=== PATIENT | female | born 1950 | race Caucasian/White ===

== ENCOUNTER 2018-09-07 12:46 | Emergency (ER) | payer MEDICARE ==
[~2018-09-07] VITALS: Ht 172.7 cm; Wt 123.4 kg
[~2018-09-07 12:46] MED LIST: ASCO-262 PO; ASCO1TAB17 PO; BIOT1TAB2 PO; CA C1TAB66 PO; CALC-654 PO; CALC-787 PO; CEPH-507 PO; CHOL10003 PO; CNC1KV IJ; GLUC1CAP37 PO; LEVO50TA6 PO; LVT.1T PO; MELO-195 PO; MULT-608 PO; NFBIOT1000 PO; OMEP20TA2 PO; OXYC-471 PO; PANT40TA2 PO; PED1TAB. PO; POTA99TA18 PO; POTA99TA21 PO; POTA99TA7 PO; PRX20T PO; RABE20TA PO; SUCR1TAB36 PO; VENL75CA PO; VITA400C58 PO; VNL75T PO; glucosamine PO
--- OUTSIDE RECORDS SUMMARY | 2018-09-07 12:52 | XMS REPORT | CCD ---
Author Author OSMAR MIRANDA TRACYAlyx Organization Unknown Address [address] [facility] [address] [place], [place] [id number] Care Team Providers Care Staffing Administrator Name Role Phone AMANDA CAUSEY, TANVIR Wisdom Attphys C., DENIZ NASST S., SILAS NASST C., ZAK SAMUEL NASST G., JUANY NASST K., EMILY Chen NASST D., EMMIE Garner NASST Vital Signs Vital Sign Value Unit Date/Time Recent/Initial? Weight Measured 277 lbs 05/12/2015 09:23 Initial VS Height 68 in 05/12/2015 09:23 Initial VS BMI (Body Mass Index) 42.12 kg/m^2 05/12/2015 09:23 Initial VS BSA (Body Surface Area) 2.46 m^2 05/12/2015 09:23 Initial VS Respiratory Rate 10 bpm 05/13/2015 09:57 Initial VS Heart Rate 60 bpm 05/13/2015 09:57 Initial VS O2 % BldC Oximetry 100 % 05/13/2015 09:57 Initial VS BP Systolic 128 mmHg 05/13/2015 10:06 Initial VS BP Diastolic 69 mmHg 05/13/2015 10:06 Initial VS Body Temperature 96.5 degrees 05/13/2015 13:35 Initial VS BP Systolic 103 mmHg 05/15/2015 07:31 Most Recent VS BP Diastolic 64 mmHg 05/15/2015 07:31 Most Recent VS Respiratory Rate 16 bpm 05/15/2015 07:31 Most Recent VS Heart Rate 67 bpm 05/15/2015 07:31 Most Recent VS O2 % BldC Oximetry 97 % 05/15/2015 07:31 Most Recent VS Body Temperature 98.5 degrees 05/15/2015 07:31 Most Recent VS Allergies Allergy Code Allergy Type Reaction Status STRAWBERRY FLAVORING {Clinical monitoring unavailable} 0 Food allergy Active PREMARIN [id number] Drug allergy Active NSAID 0 Drug allergy Active Procedures Procedure Code Procedure Type Date Supplement Abdominal Wall with Synthetic Substitute, Open Approach [id number] ICD-10 PCS 05/13/2015 CBC W/ AUTO DIFF (RFLX MAN DIFF IF IND) 3674885 SNOMED CT 05/15/2015 COMPREHENSIVE METABOLIC PANEL 197907649 SNOMED CT 05/15/2015 COMPREHENSIVE METABOLIC PANEL 988542148 SNOMED CT 05/14/2015 CBC W/ AUTO DIFF (RFLX MAN DIFF IF IND) 3584722 SNOMED CT 05/14/2015 INCENTIVE SPIROMETRY EA [address] 05/13/2015 ^CBC W/AUTO DIFF 5422568 SNOMED CT 05/15/2015 ^CBC W/AUTO DIFF 6098503 SNOMED CT 05/14/2015 History of Immunizations Immunization Code Date Hep B, adolescent or pediatric 08 03/14/1994 Hep B, adolescent or pediatric 04/13/1994 Hep B, adolescent or pediatric 09/14/1994 influenza, split (incl. purified surface antigen) 15 12/25/2002 influenza, split (incl. purified surface antigen) 15 03/30/2004 Novel [id number] 127 01/19/2009 Influenza, seasonal, injectable 141 12/24/2014 Influenza, seasonal, injectable 141 12/20/2010 influenza, seasonal, intradermal, preservative free 144 01/02/2012 influenza, injectable, quadrivalent, preservative free 150 01/05/2014 Problems Problem Code Start Date Resolved Date Status Post-op complication 576591881 Active Hematoma of skin 085175257 Active Ventral incisional hernia 861018194 05/23/2015 Resolved Post op pain 032974089 05/23/2015 Resolved Results COMPREHENSIVE METABOLIC PANEL - Collect Date/Time: 05/15/2015 06:15 Test Name Code Test Result Test Units Test Ref Range GLUCOSE 2345-7 105 MG/DL L=70 H=100 SODIUM 2951-2 144 MEQ/L L=135 H=148 POTASSIUM 2823-3 3.4 MEQ/L L=3.5 H=5.3 CHLORIDE 2075-0 108 MEQ/L L=96 H=110 CO2 2028-9 27 MEQ/L L=22 H=29 BUN 3094-0 9 MG/DL L=8 H=22 CREATININE 2160-0 0.6 MG/DL L=0.6 H=1.6 SGOT/AST 1920-8 115 IU/L L=10 H=40 SGPT/ALT 1742-6 78 IU/L L=8 H=54 ALK PHOS 6768-6 207 IU/L L=35 H=115 TOTAL PROTEIN 2885-2 5.8 G/DL L=5.5 H=8.5 ALBUMIN 1751-7 3.2 G/DL L=3.1 H=5.4 TOTAL BILI 1975-2 0.3 MG/DL L=0.0 H=1.5 CALCIUM 67064-0 8.7 MG/DL L=8.2 H=10.6 AGE 65 yrs GFR NonAA 100 GFR AA 121 eGFR >60 N/A eGFR AA* >60 N/A COMPREHENSIVE METABOLIC PANEL - Collect Date/Time: 05/14/2015 06:40 Test Name Code Test Result Test Units Test Ref Range GLUCOSE 2345-7 102 MG/DL L=70 H=100 SODIUM 2951-2 140 MEQ/L L=135 H=148 POTASSIUM 2823-3 4.1 MEQ/L L=3.5 H=5.3 CHLORIDE 2075-0 107 MEQ/L L=96 H=110 CO2 2028-9 25 MEQ/L L=22 H=29 BUN 3094-0 11 MG/DL L=8 H=22 CREATININE 2160-0 0.7 MG/DL L=0.6 H=1.6 SGOT/AST 1920-8 206 IU/L L=10 H=40 SGPT/ALT 1742-6 131 IU/L L=8 H=54 ALK PHOS 6768-6 214 IU/L L=35 H=115 TOTAL PROTEIN 2885-2 5.7 G/DL L=5.5 H=8.5 ALBUMIN 1751-7 3.2 G/DL L=3.1 H=5.4 TOTAL BILI 1975-2 0.2 MG/DL L=0.0 H=1.5 CALCIUM 07751-2 8.7 MG/DL L=8.2 H=10.6 AGE 65 yrs GFR NonAA 84 GFR AA 102 eGFR >60 N/A eGFR AA* >60 N/A CBC W/ AUTO DIFF (RFLX MAN DIFF IF IND) - Collect Date/Time: 05/15/2015 06:15 Test Name Code Test Result Test Units Test Ref Range WBC 60357-9 6.6 TH/CMM L=4.5 H=10.8 RBC 789-8 3.34 ML/CMM L=4.20 H=5.40 HGB 718-7 10.6 G/DL L=12.0 H=16.0 HCT 4544-3 34.5 % L=37.0 H=47.0 MCV 103 FL L=81 H=99 MCH 31.7 PG L=27.0 H=33.0 MCHC 30.7 G/DL L=31.0 H=36.0 RDW SD 49 FL L=36 H=50 RDW CV 13.0 % L=0.0 H=14.8 MPV 10.2 FL L=9.3 H=12.5 PLT 777-3 214 TH/CMM L=130 H=440 NRBC# 0.00 TH/CMM L=0.00 H=0.00 NRBC% 0.0 /100WBC L=0.0 H=2.0 %NEUT 65.1 % %LYMP 23.1 % %MONO 8.3 % %EOS 2.9 % %BASO 0.6 % #NEUT 4.30 TH/CMM L=2.10 H=8.20 #LYMP 1.53 TH/CMM L=0.90 H=5.20 #MONO 0.55 TH/CMM L=0.16 H=1.00 #EOS 0.19 TH/CMM L=0.00 H=0.80 #BASO 0.04 TH/CMM L=0.00 H=0.20 MANUAL DIFF NOT IND N/A CBC W/ AUTO DIFF (RFLX MAN DIFF IF IND) - Collect Date/Time: 05/14/2015 06:40 Test Name Code Test Result Test Units Test Ref Range WBC 62738-5 7.9 TH/CMM L=4.5 H=10.8 RBC 789-8 3.44 ML/CMM L=4.20 H=5.40 HGB 718-7 11.0 G/DL L=12.0 H=16.0 HCT 4544-3 35.1 % L=37.0 H=47.0 MCV 102 FL L=81 H=99 MCH 32.0 PG L=27.0 H=33.0 MCHC 31.3 G/DL L=31.0 H=36.0 RDW SD 47 FL L=36 H=50 RDW CV 12.7 % L=0.0 H=14.8 MPV 9.6 FL L=9.3 H=12.5 PLT 777-3 216 TH/CMM L=130 H=440 NRBC# 0.00 TH/CMM L=0.00 H=0.00 NRBC% 0.0 /100WBC L=0.0 H=2.0 %NEUT 74.3 % %LYMP 15.8 % %MONO 9.8 % %EOS 0.0 % %BASO 0.1 % #NEUT 5.88 TH/CMM L=2.10 H=8.20 #LYMP 1.25 TH/CMM L=0.90 H=5.20 #MONO 0.78 TH/CMM L=0.16 H=1.00 #EOS 0.00 TH/CMM L=0.00 H=0.80 #BASO 0.01 TH/CMM L=0.00 H=0.20 MANUAL DIFF NOT IND N/A Active Medications Medication Code Dose Units Frequency Route Modification Start Date/Time Carafate 1GM/10ML Oral Suspension 670965 1 EACH FOUR TIMES A DAY ORAL 05/26/2015 09:42 Prescription Detail 1 EACH ORAL FOUR TIMES A DAY oxyCODONE HCl-acetaminophen 5MG-325MG Oral Tablet 8009193 1 TABLET NEEDED EVERY 4 HR BY MOUTH 05/26/2015 09:42 Prescription Detail 1 TABLET BY MOUTH NEEDED EVERY 4 HR Pantoprazole Sodium 40MG Oral Tablet, Enteric Coated 660422 40 MILLIGRAMS TWO TIMES A DAY ORAL 05/26/2015 09:42 Prescription Detail 40 MILLIGRAMS ORAL TWO TIMES A DAY Effexor 75MG Oral Tablet 48628611024 75 MILLIGRAMS DAILY ORAL 05/15/2015 10:32 Prescription Detail 75 MILLIGRAMS ORAL DAILY Levothroid Sodium 50MCG Oral Tablet 80307234143 50 MCG DAILY ORAL 05/15/2015 10:32 Prescription Detail 50 MCG ORAL DAILY Medications Administered During Visit Medication Dose Units Frequency Route Date/Time of Last Dose LEVOTHYROXINE (SYNTHROID)50 MCG 50 MCG DAILY PO 05/15/2015 06:18 VENLAFAXINE [EFFEXOR] XR CAP : 75MG 75 MG DAILY PO 05/15/2015 08:17 PANTOPRAZOLE [PROTONIX] INJ VIAL: 40 MG 40 MG DAILY SIVP 05/15/2015 08:17 METOCLOPRAMIDE [REGLAN] TABLET: 10MG 10 MG ACHS PO 05/15/2015 06:18 PERCOCET 5/325 MG TABLET (ROXICET) 1 TAB PRN Q 4 HRS PO 05/15/2015 07:42 CEFAZOLIN [ANCEF] IV 2GM (PREDEFINED) Q8H IVPB 05/14/2015 07:58 NS 1000 ML IV [PREDEFINED] (7983) CONT IV IV 05/14/2015 07:58 OFIRMEV [ACETAMINOPHEN] 10MG/ML 100ML VL Q6H IV 05/14/2015 05:12 Encounters Encounter Diagnosis Diagnosis Code Start Date Incisional hernia with obstruction, without gangrene K430 05/13/2015 Social History Smoking Status Code Start Date End Date Unknown if ever smoked [id number] Patient Decision Aids Patient Decision Aid HERNIA REPAIR; AFTER THE PROCEDURE Incisional Hernia Discharge Instructions You were admitted to [facility] on 05/13/2015 09:14 with a principal diagnosis of Incisional hernia with obstruction, without gangrene You had the following procedures done: Supplement Abdominal Wall with Synthetic Substitute, Open Approach You had the following tests done: CBC W/ AUTO DIFF (RFLX MAN DIFF IF IND) CBC W/ AUTO DIFF (RFLX MAN DIFF IF IND) COMPREHENSIVE METABOLIC PANEL COMPREHENSIVE METABOLIC PANEL You were discharged from [facility] on 05/15/2015 11:05 Should you have any questions prior to discharge, please contact a member of your healthcare team. If you have left the hospital and have any questions, please contact your primary care physician. HOME DIET: As tolerated. CONDITION AT DISMISSAL Stable. HOME MEDICATION INSTRUCTIONS: Verbalizes understanding of instructions. HOME MEDS RETURNED TO PATIENT: N/A. ACTIVITY INSTRUCTIONS(list limitations): No lifting greater than 15lbs No driving for 7 days RETURN TO WORK/SCHOOL: Only after you see your doctor. SCRIPTS WRITTEN BY DOCTOR GIVEN TO PATIENT? Keflex and Percocet PAIN MANAGEMENT: "Pain Management at Home" instruct given, Medication, Side effects. Treatment of constipation, Non drug control methods. Managing ineffective control, When to contact physician. Verbalizes understanding of instructions. FOLLOW UP CARE - SEE YOUR PHYSICIAN: Follow up with Dr. Ayala in 10 days. Call on Sunday for an appointment. SPECIAL INSTRUCTIONS: Measure drainage from drain daily, if less than 20ml per day call Dr. Ayala's office PRIMARY CARE PHYSICIAN OR PRACTITIONER: Tanvir Ayala MD, . CONTACT PHYSICIAN IF YOU EXPERIENCE ANY: Increased in pain, increased in drainage from JEAN CLAUDE drain, Shortness of breath. PERSONAL ITEMS RETURNED: Yes. INSTRUCTIONS GIVEN AND DISCHARGE TO: Patient, Spouse/SO. VOICES UNDERSTANDING OF INSTRUCTIONS: Yes. INSTRUCTIONS GIVEN BY (TYPE IN NAME AND DATE) Nancy Benavides 05/15/15 CHIEF COMPLAINT: C/O RIGHT/MIDLINE HERNIA FOR STARTING APPROX 3 WEEKS AGO GETTING LARGER Chief Complaint and Reason For Visit Chief Complaint Date of Onset REPAIR OF VENTRAL HERNIA Function Status Unknown or Not Available. Plan of Care Unknown or Not Available. Referral/Transition of Care Unknown or Not Available.
--- OUTSIDE RECORDS SUMMARY | 2018-09-07 12:52 | XMS REPORT | CCD ---
Author Author OSVALDO CONLEY Unknown Address [address] [facility] [address] [place] [address] Care Team Providers Care Storage Garage Attendant Name Role Phone LANCE CAUSEY, TAYO Smithphys Allergies Allergy Code Allergy Type Reaction Status STRAWBERRIES 0 Food allergy Active IVP DYE {Clinical monitoring unavailable} 0 Drug allergy Active SHELLFISH 0 Food allergy Active Active Medications Medication Code Dose Units Frequency Route Modification Start Date/Time Carafate 1GM/10ML Oral Suspension 216538 1 EACH FOUR TIMES A DAY ORAL 05/26/2015 09:42 Prescription Detail 1 EACH ORAL FOUR TIMES A DAY oxyCODONE HCl-acetaminophen 5MG-325MG Oral Tablet 0240621 1 TABLET NEEDED EVERY 4 HR BY MOUTH 05/26/2015 09:42 Prescription Detail 1 TABLET BY MOUTH NEEDED EVERY 4 HR Pantoprazole Sodium 40MG Oral Tablet, Enteric Coated 284228 40 MILLIGRAMS TWO TIMES A DAY ORAL 05/26/2015 09:42 Prescription Detail 40 MILLIGRAMS ORAL TWO TIMES A DAY Effexor 75MG Oral Tablet 452785 75 MILLIGRAMS DAILY ORAL 05/15/2015 10:32 Prescription Detail 75 MILLIGRAMS ORAL DAILY Levothroid Sodium 50MCG Oral Tablet 864030 50 MCG DAILY ORAL 05/15/2015 10:32 Prescription Detail 50 MCG ORAL DAILY Problems Problem Code Start Date Resolved Date Status Post-op complication 635171478 Active Hematoma of skin 924730648 Active Procedures Procedure Code Procedure Type Date ^CBC W/AUTO DIFF 3353237 SNOMED CT 10/17/2016 SED RATE 220425896 SNOMED CT 10/17/2016 COMPREHENSIVE METABOLIC PANEL 530780926 SNOMED CT 10/17/2016 CBC W/ AUTO DIFF (RFLX MAN DIFF IF IND) 8986887 SNOMED CT 10/17/2016 Results COMPREHENSIVE METABOLIC PANEL - Collect Date/Time: 10/17/2016 19:39 Test Name Code Test Result Test Units Test Ref Range GLUCOSE 2345-7 117 MG/DL L=70 H=100 SODIUM 2951-2 141 MEQ/L L=135 H=148 POTASSIUM 2823-3 3.7 MEQ/L L=3.5 H=5.3 CHLORIDE 2075-0 109 MEQ/L L=96 H=110 CO2 2028-9 22 MEQ/L L=22 H=29 BUN 3094-0 14 MG/DL L=8 H=22 CREATININE 2160-0 0.7 MG/DL L=0.6 H=1.6 SGOT/AST 1920-8 18 IU/L L=10 H=40 SGPT/ALT 1742-6 12 IU/L L=8 H=54 ALK PHOS 6768-6 128 IU/L L=35 H=115 TOTAL PROTEIN 2885-2 7.3 G/DL L=5.5 H=8.5 ALBUMIN 1751-7 3.8 G/DL L=3.1 H=5.4 TOTAL BILI 1975-2 0.2 MG/DL L=0.0 H=1.5 CALCIUM 82266-2 9.3 MG/DL L=8.2 H=10.6 AGE 66 yrs GFR NonAA 84 GFR AA 102 eGFR >60 N/A eGFR AA* >60 N/A CBC W/ AUTO DIFF (RFLX MAN DIFF IF IND) - Collect Date/Time: 10/17/2016 19:39 Test Name Code Test Result Test Units Test Ref Range WBC 55884-6 7.5 TH/CMM L=4.5 H=10.8 RBC 789-8 4.02 ML/CMM L=4.20 H=5.40 HGB 718-7 12.9 G/DL L=12.0 H=16.0 HCT 4544-3 40.2 % L=37.0 H=47.0 MCV 100 FL L=81 H=99 MCH 32.1 PG L=27.0 H=33.0 MCHC 32.1 G/DL L=31.0 H=36.0 RDW SD 46 FL L=36 H=50 RDW CV 12.5 % L=0.0 H=14.8 MPV 10.0 FL L=9.3 H=12.5 PLT 777-3 249 TH/CMM L=130 H=440 NRBC# 0.00 TH/CMM L=0.00 H=0.00 NRBC% 0.0 /100WBC L=0.0 H=2.0 %NEUT 66.0 % %LYMP 22.0 % %MONO 7.0 % %EOS 3.9 % %BASO 0.8 % #NEUT 4.94 TH/CMM L=2.10 H=8.20 #LYMP 1.64 TH/CMM L=0.90 H=5.20 #MONO 0.52 TH/CMM L=0.16 H=1.00 #EOS 0.29 TH/CMM L=0.00 H=0.80 #BASO 0.06 TH/CMM L=0.00 H=0.20 MANUAL DIFF NOT IND N/A SED RATE - Collect Date/Time: 10/17/2016 19:39 Test Name Code Test Result Test Units Test Ref Range SEDRATE 4537-7 41 MM/HR L=0 H=30 TICK PANEL - Collect Date/Time: 10/17/2016 19:39 Test Name Code Test Result Test Units Test Ref Range Lyme IgG/IgM Ab 08971-6 <0.91 ISR 0.00-0.90 Lyme Disease Ab, Quant,IgM 5064-1 <0.80 index 0.00-0.79 [facility] Spotted Fever,IgM 09350-6 0.55 index 0.00- 0.89 RMSF, IgG, EIA 84683-5 Negative N/A Negative E. chaffeensis ([facility]) IgGTiter 16891-4 Negative N/A Neg:<1:64 E. chaffeensis ([facility]) IgMTiter 86110-6 Negative N/A Neg:<1:20 Function Status Unknown or Not Available. History of Immunizations Immunization Code Date Hep B, adolescent or pediatric 03/14/1994 Hep B, adolescent or pediatric 04/13/1994 Hep B, adolescent or pediatric 09/14/1994 influenza, split (incl. purified surface antigen) 15 12/25/2002 influenza, split (incl. purified surface antigen) 15 03/30/2004 Novel [id number]-[id number] 127 01/19/2009 Influenza, seasonal, injectable 141 12/24/2014 Influenza, seasonal, injectable 141 12/20/2010 Influenza, seasonal, injectable 141 01/02/2012 influenza, seasonal, intradermal, preservative free 144 01/02/2012 influenza, injectable, quadrivalent, preservative free 150 01/05/2014 influenza, injectable, quadrivalent, preservative free 150 02/08/2015 influenza, injectable, quadrivalent 158 12/20/2010 Plan of Treatment Unknown or Not Available. Social History Smoking Status Code Start Date End Date Never smoker 362974316 Vital Signs Unknown or Not Available. Function Status Unknown or Not Available. Goals Unknown or Not Available. ASSESSMENTS Unknown or Not Available. Health Concerns Section Unknown or Not Available.
--- OUTSIDE RECORDS SUMMARY | 2018-09-07 12:52 | XMS REPORT | CCD ---
Author Author JOSESITO THOMPSON Unknown Address [address] [facility] [address] [place], [place] [id number] Care Team Providers Care Police Booking Officer Name Role Phone AMANDA CAUSEY, TANVIR Wisdom Attphys J., JOSESITO NASST D., MARVIN Armenta NASST C., DENIZ NASST S., ELKIN GALVEZ NASST B., JIN NASST M., LIZZY Chen NASST S., DENIZ NASST G., KILEY [place] NASST P., RUKHSANA NASST F., LEILANI NASST Vital Signs Vital Sign Value Unit Date/Time Recent/Initial? Weight Measured 294.06 lbs 05/22/2015 18:20 Initial VS Height 68 in 05/22/2015 18:20 Initial VS BMI (Body Mass Index) 44.71 kg/m^2 05/22/2015 18:20 Initial VS BSA (Body Surface Area) 2.53 m^2 05/22/2015 18:20 Initial VS BP Systolic 149 mmHg 05/22/2015 18:20 Initial VS BP Diastolic 88 mmHg 05/22/2015 18:20 Initial VS Respiratory Rate 20 bpm 05/22/2015 18:20 Initial VS Heart Rate 74 bpm 05/22/2015 18:20 Initial VS O2 % BldC Oximetry 100 % 05/22/2015 18:20 Initial VS Body Temperature 98.1 degrees 05/22/2015 18:20 Initial VS Weight Measured 294.37 lbs 05/22/2015 18:39 Most Recent VS Height 68 in 05/22/2015 18:39 Most Recent VS BMI (Body Mass Index) 44.76 kg/m^2 05/22/2015 18:39 Most Recent VS BSA (Body Surface Area) 2.53 m^2 05/22/2015 18:39 Most Recent VS BP Systolic 118 mmHg 05/26/2015 07:20 Most Recent VS BP Diastolic 67 mmHg 05/26/2015 07:20 Most Recent VS Respiratory Rate 18 bpm 05/26/2015 07:20 Most Recent VS Heart Rate 79 bpm 05/26/2015 07:20 Most Recent VS O2 % BldC Oximetry 96 % 05/26/2015 07:20 Most Recent VS Body Temperature 98.2 degrees 05/26/2015 07:20 Most Recent VS Allergies Allergy Code Allergy Type Reaction Status STRAWBERRY FLAVORING {Clinical monitoring unavailable} 0 Food allergy Active PREMARIN [id number] Drug allergy Active NSAID 0 Drug allergy Active SHELLFISH 0 Food allergy Active Procedures Procedure Code Procedure Type Date Extirpation of Matter from Abdomen Subcutaneous Tissue and Fascia, Open Ap [id number] ICD-10 PCS 05/25/2015 ^CBC W/AUTO DIFF 1314216 SNOMED CT 05/26/2015 HIV AG/AB COMBO [id number] SNOMED CT 05/25/2015 HEPATITIS PANEL + HBsAb 33874480 SNOMED CT 05/25/2015 CBC W/ AUTO DIFF (RFLX MAN DIFF IF IND) 7092728 SNOMED CT 05/26/2015 CT ABD AND PELVIS W/CONTRAST 728445444 SNOMED CT 05/24/2015 COMPREHENSIVE METABOLIC PANEL [id number] SNOMED CT 05/24/2015 CBC W/ AUTO DIFF (RFLX MAN DIFF IF IND) 4754884 SNOMED CT 05/24/2015 CBC W/ AUTO DIFF (RFLX MAN DIFF IF IND) 4558491 SNOMED CT 05/22/2015 COMPREHENSIVE METABOLIC PANEL [id number] SNOMED CT 05/23/2015 CBC W/ AUTO DIFF (RFLX MAN DIFF IF IND) 8170444 SNOMED CT 05/23/2015 ^CBC W/ MANUAL DIFF 07221266 SNOMED CT 05/24/2015 ^CBC W/AUTO DIFF 6533317 SNOMED CT 05/23/2015 ^CBC W/AUTO DIFF 9007299 SNOMED CT 05/22/2015 LOCM 300-349 MG/ML, PER ML 698688148 SNOMED CT 05/24/2015 History of Immunizations Immunization Code Date Hep B, adolescent or pediatric 03/14/1994 Hep B, adolescent or pediatric 08 04/13/1994 Hep B, adolescent or pediatric 08 09/14/1994 influenza, split (incl. purified surface antigen) 15 12/25/2002 influenza, split (incl. purified surface antigen) 15 03/30/2004 Novel [id number] 127 01/19/2009 Influenza, seasonal, injectable 141 12/24/2014 Influenza, seasonal, injectable 141 12/20/2010 influenza, seasonal, intradermal, preservative free 144 01/02/2012 influenza, injectable, quadrivalent, preservative free 150 01/05/2014 Problems Problem Code Start Date Resolved Date Status Post-op complication [id number] Active Hematoma of skin 816554162 Active Ventral incisional hernia 541005896 05/23/2015 Resolved Post op pain 759508398 05/23/2015 Resolved Results COMPREHENSIVE METABOLIC PANEL - Collect Date/Time: 05/24/2015 06:20 Test Name Code Test Result Test Units Test Ref Range GLUCOSE 2345-7 153 MG/DL L=70 H=100 SODIUM 2951-2 143 MEQ/L L=135 H=148 POTASSIUM 2823-3 3.9 MEQ/L L=3.5 H=5.3 CHLORIDE 2075-0 107 MEQ/L L=96 H=110 CO2 2028-9 27 MEQ/L L=22 H=29 BUN 3094-0 7 MG/DL L=8 H=22 CREATININE 2160-0 0.6 MG/DL L=0.6 H=1.6 SGOT/AST 1920-8 20 IU/L L=10 H=40 SGPT/ALT 1742-6 20 IU/L L=8 H=54 ALK PHOS 6768-6 179 IU/L L=35 H=115 TOTAL PROTEIN 2885-2 6.1 G/DL L=5.5 H=8.5 ALBUMIN 1751-7 3.1 G/DL L=3.1 H=5.4 TOTAL BILI 1975-2 0.4 MG/DL L=0.0 H=1.5 CALCIUM 26041-3 9.2 MG/DL L=8.2 H=10.6 AGE 65 yrs GFR NonAA 100 GFR AA 121 eGFR >60 N/A eGFR AA* >60 N/A COMPREHENSIVE METABOLIC PANEL - Collect Date/Time: 05/23/2015 06:00 Test Name Code Test Result Test Units Test Ref Range GLUCOSE 2345-7 97 MG/DL L=70 H=100 SODIUM 2951-2 143 MEQ/L L=135 H=148 POTASSIUM 2823-3 3.7 MEQ/L L=3.5 H=5.3 CHLORIDE 2075-0 108 MEQ/L L=96 H=110 CO2 2028-9 27 MEQ/L L=22 H=29 BUN 3094-0 5 MG/DL L=8 H=22 CREATININE 2160-0 0.6 MG/DL L=0.6 H=1.6 SGOT/AST 1920-8 26 IU/L L=10 H=40 SGPT/ALT 1742-6 22 IU/L L=8 H=54 ALK PHOS 6768-6 153 IU/L L=35 H=115 TOTAL PROTEIN 2885-2 5.2 G/DL L=5.5 H=8.5 ALBUMIN 1751-7 2.7 G/DL L=3.1 H=5.4 TOTAL BILI 1975-2 0.5 MG/DL L=0.0 H=1.5 CALCIUM 52736-6 8.6 MG/DL L=8.2 H=10.6 AGE 65 yrs GFR NonAA 100 GFR AA 121 eGFR >60 N/A eGFR AA* >60 N/A CBC W/ AUTO DIFF (RFLX MAN DIFF IF IND) - Collect Date/Time: 05/26/2015 06:18 Test Name Code Test Result Test Units Test Ref Range WBC 63105-4 8.1 TH/CMM L=4.5 H=10.8 RBC 789-8 2.87 ML/CMM L=4.20 H=5.40 HGB 718-7 8.9 G/DL L=12.0 H=16.0 HCT 4544-3 28.1 % L=37.0 H=47.0 MCV 98 FL L=81 H=99 MCH 31.0 PG L=27.0 H=33.0 MCHC 31.7 G/DL L=31.0 H=36.0 RDW SD 55 FL L=36 H=50 RDW CV 15.6 % L=0.0 H=14.8 MPV 9.3 FL L=9.3 H=12.5 PLT 777-3 318 TH/CMM L=130 H=440 NRBC# 0.00 TH/CMM L=0.00 H=0.00 NRBC% 0.0 /100WBC L=0.0 H=2.0 %NEUT 68.1 % %LYMP 19.2 % %MONO 8.9 % %EOS 3.6 % %BASO 0.2 % #NEUT 5.53 TH/CMM L=2.10 H=8.20 #LYMP 1.56 TH/CMM L=0.90 H=5.20 #MONO 0.72 TH/CMM L=0.16 H=1.00 #EOS 0.29 TH/CMM L=0.00 H=0.80 #BASO 0.02 TH/CMM L=0.00 H=0.20 MANUAL DIFF NOT IND N/A CBC W/ AUTO DIFF (RFLX MAN DIFF IF IND) - Collect Date/Time: 05/24/2015 06:20 Test Name Code Test Result Test Units Test Ref Range WBC 14302-3 7.4 TH/CMM L=4.5 H=10.8 RBC 789-8 3.14 ML/CMM L=4.20 H=5.40 HGB 718-7 9.7 G/DL L=12.0 H=16.0 HCT 4544-3 30.2 % L=37.0 H=47.0 MCV 96 FL L=81 H=99 MCH 30.9 PG L=27.0 H=33.0 MCHC 32.1 G/DL L=31.0 H=36.0 RDW SD 55 FL L=36 H=50 RDW CV 16.1 % L=0.0 H=14.8 MPV 9.6 FL L=9.3 H=12.5 PLT 777-3 331 TH/CMM L=130 H=440 NRBC# 0.00 TH/CMM L=0.00 H=0.00 NRBC% 0.0 /100WBC L=0.0 H=2.0 %NEUT 91.5 % %LYMP 6.7 % %MONO 1.7 % %EOS 0.0 % %BASO 0.1 % #NEUT 6.80 TH/CMM L=2.10 H=8.20 #LYMP 0.50 TH/CMM L=0.90 H=5.20 #MONO 0.13 TH/CMM L=0.16 H=1.00 #EOS 0.00 TH/CMM L=0.00 H=0.80 #BASO 0.01 TH/CMM L=0.00 H=0.20 SEGS 86 % BANDS 7 % LYMPHS 6 % MONOS 1 % MANUAL DIFF SEE BELOW N/A CBC W/ AUTO DIFF (RFLX MAN DIFF IF IND) - Collect Date/Time: 05/23/2015 06:00 Test Name Code Test Result Test Units Test Ref Range WBC 66012-0 5.8 TH/CMM L=4.5 H=10.8 RBC 789-8 2.82 ML/CMM L=4.20 H=5.40 HGB 718-7 8.8 G/DL L=12.0 H=16.0 HCT 4544-3 27.0 % L=37.0 H=47.0 MCV 96 FL L=81 H=99 MCH 31.2 PG L=27.0 H=33.0 MCHC 32.6 G/DL L=31.0 H=36.0 RDW SD 58 FL L=36 H=50 RDW CV 16.8 % L=0.0 H=14.8 MPV 9.6 FL L=9.3 H=12.5 PLT 777-3 247 TH/CMM L=130 H=440 NRBC# 0.00 TH/CMM L=0.00 H=0.00 NRBC% 0.0 /100WBC L=0.0 H=2.0 %NEUT 62.9 % %LYMP 20.9 % %MONO 11.1 % %EOS 4.8 % %BASO 0.3 % #NEUT 3.66 TH/CMM L=2.10 H=8.20 #LYMP 1.22 TH/CMM L=0.90 H=5.20 #MONO 0.65 TH/CMM L=0.16 H=1.00 #EOS 0.28 TH/CMM L=0.00 H=0.80 #BASO 0.02 TH/CMM L=0.00 H=0.20 MANUAL DIFF NOT IND N/A CBC W/ AUTO DIFF (RFLX MAN DIFF IF IND) - Collect Date/Time: 05/22/2015 22:10 Test Name Code Test Result Test Units Test Ref Range WBC 55295-0 7.3 TH/CMM L=4.5 H=10.8 RBC 789-8 2.84 ML/CMM L=4.20 H=5.40 HGB 718-7 8.7 G/DL L=12.0 H=16.0 HCT 4544-3 27.3 % L=37.0 H=47.0 MCV 96 FL L=81 H=99 MCH 30.6 PG L=27.0 H=33.0 MCHC 31.9 G/DL L=31.0 H=36.0 RDW SD 58 FL L=36 H=50 RDW CV 16.7 % L=0.0 H=14.8 MPV 9.5 FL L=9.3 H=12.5 PLT 777-3 242 TH/CMM L=130 H=440 NRBC# 0.00 TH/CMM L=0.00 H=0.00 NRBC% 0.0 /100WBC L=0.0 H=2.0 %NEUT 65.3 % %LYMP 18.8 % %MONO 11.5 % %EOS 4.0 % %BASO 0.4 % #NEUT 4.75 TH/CMM L=2.10 H=8.20 #LYMP 1.37 TH/CMM L=0.90 H=5.20 #MONO 0.84 TH/CMM L=0.16 H=1.00 #EOS 0.29 TH/CMM L=0.00 H=0.80 #BASO 0.03 TH/CMM L=0.00 H=0.20 MANUAL DIFF NOT IND N/A HEPATITIS PANEL + HBsAb - Collect Date/Time: 05/25/2015 13:18 Test Name Code Test Result Test Units [place] [address]-6 <0.1 0.0-0.9 Hep A Ab, IgM 12733-2 Negative N/A Negative HBsAg Screen 5196-1 Negative N/A Negative Hep B Core Ab, IgM 46868-5 Negative N/A Negative Hep B Surface Ab, Qual 22670-5 Reactive N/A HIV AG/AB COMBO - Collect Date/Time: 05/25/2015 13:18 Test Name Code Test Result Test Units Test Ref Range HIV AG/AB COMBO 15328-3 0.12 N/A NL: < or=1.0 S/CO Active Medications Medication Code Dose Units Frequency Route Modification Start Date/Time Carafate 1GM/10ML Oral Suspension 607346 1 EACH FOUR TIMES A DAY ORAL 05/26/2015 09:42 Prescription Detail 1 EACH ORAL FOUR TIMES A DAY oxyCODONE HCl-acetaminophen 5MG-325MG Oral Tablet 5842607 1 TABLET NEEDED EVERY 4 HR BY MOUTH 05/26/2015 09:42 Prescription Detail 1 TABLET BY MOUTH NEEDED EVERY 4 HR Pantoprazole Sodium 40MG Oral Tablet, Enteric Coated 897589 40 MILLIGRAMS TWO TIMES A DAY ORAL 05/26/2015 09:42 Prescription Detail 40 MILLIGRAMS ORAL TWO TIMES A DAY Effexor 75MG Oral Tablet 14991492236 75 MILLIGRAMS DAILY ORAL 05/15/2015 10:32 Prescription Detail 75 MILLIGRAMS ORAL DAILY Levothroid Sodium 50MCG Oral Tablet 01482014055 50 MCG DAILY ORAL 05/15/2015 10:32 Prescription Detail 50 MCG ORAL DAILY Medications Administered During Visit Medication Dose Units Frequency Route Date/Time of Last Dose VENLAFAXINE [EFFEXOR] XR CAP : 75MG 75 MG DAILY PO 05/24/2015 07:33 SUCRALFATE SUSP [CARAFATE] 1GM/10ML UD 1 GM QID PO 05/24/2015 20:14 PANTOPRAZOLE [PROTONIX] TABLET : 40 MG 40 MG BID PO 05/24/2015 20:14 LEVOTHYROXINE (SYNTHROID)50 MCG 50 MCG DAILY PO 05/24/2015 06:46 PERCOCET 5/325 MG TABLET (ROXICET) 1 TAB PRN Q 4 HRS PO 05/25/2015 06:56 NS 1000 ML IV [PREDEFINED] (7983) CONT IV IV 05/23/2015 11:51 PredniSONE 20 MG TABLET 50 MG X1 PO 05/24/2015 00:08 PredniSONE 20 MG TABLET 50 MG X1 PO 05/24/2015 06:46 DIPHENHYDRAMINE (BENADRYL) CAP : 25 MG 25 MG X1 PO 05/24/2015 06:46 PredniSONE 20 MG TABLET 50 MG X1 PO 05/23/2015 19:23 MIDAZOLAM [VERSED] 2 MG/2 ML VIAL 1 MG X1 IVP 05/25/2015 11:17 FAMOTIDINE(PEPCID)IV BAMG X1 IV 05/25/2015 11:14 METOCLOPRAMIDE [REGLAN] INJ: 10MG/2ML 10 MG X1 IVP 05/25/2015 11:14 VENLAFAXINE [EFFEXOR] XR CAP : 75MG 75 MG DAILY PO 05/26/2015 07:52 SUCRALFATE SUSP [CARAFATE] 1GM/10ML UD 1 GM QID PO 05/26/2015 07:54 PANTOPRAZOLE [PROTONIX] TABLET : 40 MG 40 MG BID PO 05/26/2015 07:52 LEVOTHYROXINE (SYNTHROID)50 MCG 50 MCG DAILY PO 05/26/2015 05:17 PERCOCET 5/325 MG TABLET (ROXICET) 1 TAB PRN Q 4 HRS PO 05/26/2015 07:52 HYDROmorphone [DILAUDID] INJ: 2MG/ML 0.5 MG PRN IVP 05/25/2015 14:48 NS 1000 ML IV [PREDEFINED] (7983) CONT IV IV 05/26/2015 07:52 CEFAZOLIN [ANCEF] IV 3GM (PREDEFINED) X1 IVPB 05/25/2015 11:37 ONDANSETRON [ZOFRAN] INJ 4 MG/2 ML VIAL 4 MG PRN Q 4 HRS SIVP 05/26/2015 08:52 Encounters Encounter Diagnosis Diagnosis Code Start Date Postprocedural hemorrhage and hematoma of skin and subcutaneous tissue following other procedure [id number] 05/22/2015 Social History Smoking Status Code Start Date End Date Never smoker [id number] Patient Decision Aids Unknown or Not Available. Discharge Instructions You were admitted to [facility] on 05/22/2015 19:52 with a principal diagnosis of Postprocedural hemorrhage and hematoma of skin and subcutaneous tissue fol You had the following procedures done: Extirpation of Matter from Abdomen Subcutaneous Tissue and Fascia, Open Ap You had the following tests done: CBC W/ AUTO DIFF (RFLX MAN DIFF IF IND) CBC W/ AUTO DIFF (RFLX MAN DIFF IF IND) CBC W/ AUTO DIFF (RFLX MAN DIFF IF IND) CBC W/ AUTO DIFF (RFLX MAN DIFF IF IND) COMPREHENSIVE METABOLIC PANEL COMPREHENSIVE METABOLIC PANEL HEPATITIS PANEL + HBsAb HIV AG/AB COMBO You were discharged from [facility] on 05/26/2015 10:15 Should you have any questions prior to discharge, please contact a member of your healthcare team. If you have left the hospital and have any questions, please contact your primary care physician. HOME DIET: Regular. CONDITION AT DISMISSAL Stable. HOME MEDICATION INSTRUCTIONS: Take only the medications listed above.. Verbalizes understanding of instructions. HOME MEDS RETURNED TO PATIENT: N/A. ACTIVITY INSTRUCTIONS(list limitations): No lifting more than 15 pounds, Activity as Tolerated, May Shower. SPECIAL INSTRUCTIONS: Empty drains and record drainage call if drainage less than 20ml a day FOLLOW UP CARE - SEE YOUR PHYSICIAN: Make own appointment, In one week. SCRIPTS WRITTEN BY DOCTOR GIVEN TO PATIENT? No-none written by physician:. PRIMARY CARE PHYSICIAN OR PRACTITIONER: Tanvir Ayala MD, . CONTACT PHYSICIAN IF YOU EXPERIENCE ANY: pain, dizziness, bleeding, numbness in your hands/feet, fever. Shortness of Breath, Nausea/Vomiting, Redness or soreness in calf area. Odor or drainage from incision, Difficulty urinating. Swelling of extremities, Difficulty swallowing. PATIENT PORTAL/OTHER INSTRUCTIONS: Provided education info on Patient [place]. INSTRUCTIONS GIVEN AND DISCHARGE TO: Patient. VOICES UNDERSTANDING OF INSTRUCTIONS: Yes. INSTRUCTIONS GIVEN BY (TYPE IN NAME AND DATE) Stacy Galvan RN 05/26/15 CHIEF COMPLAINT: pt had ventral hernia repair 05/13/15 at [facility] pt admitted to [facility] from home 05/15/15 for syncopal episode, low HGB. Transferred to [facility] 05/22/15. Chief Complaint and Reason For Visit Chief Complaint Date of Onset POST OP HEMATOMA Function Status Unknown or Not Available. Plan of Care Unknown or Not Available. Referral/Transition of Care Unknown or Not Available.
--- OUTSIDE RECORDS SUMMARY | 2018-09-07 12:53 | XMS REPORT ---
Author Author Iesha De Luna Organization [facility] Address [address] [place], [place] [address] Care Team Providers Care Optical Laboratory Technician Name Role Phone Iesha De Luna PCP Allergies and Adverse Reactions Name Reaction Notes [place] Contrast media allergy nausea, rash Seafood Shell Fish (shrimp, crayfish, lobster, crab) Premarin weight gain Plan of Treatment Planned Activity Comments Planned Date Planned Time Plan/Goal Complete blood count (CBC) with differential count 01/25/2016 12:00 AM Comprehensive metabolic panel 01/25/2016 12:00 AM Thyroid stimulating hormone (TSH) measurement 01/25/2016 12:00 AM Free thyroxine (FT4) measurement 01/25/2016 12:00 AM Total iron measurement 01/25/2016 12:00 AM Serum or plasma ferritin measurement 01/25/2016 12:00 AM Total iron binding capacity measurement 01/25/2016 12:00 AM LIPID PANEL 01/25/2016 12:00 AM Fecal occult blood test 01/25/2016 12:00 AM VITAMIN B12 01/25/2016 12:00 AM EDE W/REFLEX 01/25/2016 12:00 AM Medications Active Name Start Date Estimated Completion Date SIG Comments venlafaxine 75 mg oral tablet take 1 tablet by oral route daily glucosamine sulfate 1,000 mg oral capsule take 2 capsules by oral route 2 times a day vitamin E 400 unit oral capsule take 1 capsule by oral route 2 times a day Children's Chewable Vitamin oral tablet,chewable chew 1 tablet by oral route 2 times a day Vitamin D3 Complete 18 mg iron-800 mcg-150 mg oral tablet take 1 tablet by oral route 2 times a day Vitamin C 1,000 mg oral tablet take 1 tablet by oral route 2 times a day Calcium Citrate + D 315-200 mg-unit oral tablet take 2 tablets by oral route 2 times a day potassium gluconate 595 mg (99 mg) oral tablet take 2 tablets by oral route 2 times a day biotin 1,000 mcg oral tablet,chewable chew 1 tablet by oral route 2 times a day levothyroxine 50 mcg oral tablet take 1 tablet (50 mcg) by oral route once daily pantoprazole 40 mg oral tablet,delayed release (DR/EC) 08/13/2015 2016 take 1 tablet by oral route daily for 30 days clobetasol-emollient 0.05 % topical foam 01/25/2016 05/24/2016 apply to the affected area(s) by topical route 2 times per day in the morning and evening for 30 days Name Start Date Expiration Date SIG Comments Dyazide 37.5-25 mg oral capsule 06/02/2015 06/12/2015 take 1 capsule by oral route once daily for 10 days Discontinued Name Start Date Discontinued Date SIG Comments tramadol 50 mg oral tablet 07/30/2015 take 1 tablet (50 mg) by oral route every 4-6 hours as needed levothyroxine 100 mcg oral tablet 07/30/2015 take 1 tablet (100 mcg) by oral route once daily Dyazide 37.5-25 mg oral capsule 06/08/2015 07/30/2015 TAKE ONE CAPSULE BY MOUTH DAILY FOR 10 DAYS Problem List Description Status Onset Hypothyroidism Active Depression Active Vital Signs Date Time BP-Sys(mm[Hg] BP-Rosita(mm[Hg]) HR(bpm) RR(rpm) Temp WT HT HC BMI BSA BMI Percentile O2 Sat(%) 01/25/2016 3:02:00 PM 120 mmHg 76 mmHg 71 bpm 18 rpm 98.8 F 283.125 lbs 68 in 43.05 kg/m2 2.48 m2 97 % 09/01/2015 9:02:00 AM 124 mmHg 70 mmHg 65 bpm 18 rpm 98.1 F 278.125 lbs 68 in 42.2883 kg/m 2.4602 m 98 % 07/30/2015 9:38:00 AM 112 mmHg 84 mmHg 84 bpm 16 rpm 98.7 F 273.125 lbs 68 in 41.53 kg/m2 2.44 m2 97 % 07/06/2015 10:00:00 AM 134 mmHg 90 mmHg 70 bpm 20 rpm 96.2 F 97 % 06/08/2015 10:18:00 AM 138 mmHg 94 mmHg 65 bpm 20 rpm 96.8 F 97 % 06/02/2015 12:11:00 PM 160 mmHg 84 mmHg 71 bpm 16 rpm 96.7 F 96 % 05/10/2015 11:23:00 AM 110 mmHg 76 mmHg 63 bpm 16 rpm 97.1 F 277 lbs 96 % Social History Name Description Comments Tobacco Never smoker History of Procedures Date Ordered Description Order Status 08/26/2015 12:00 AM COMPLETE CBC W/AUTO DIFF WBC Returned 08/26/2015 12:00 AM COMPREHEN METABOLIC PANEL Returned 08/26/2015 12:00 AM LIPID PANEL Returned 08/26/2015 12:00 AM ASSAY THYROID STIM HORMONE Returned Results Summary Data and Description Results 05/14/2015 6:40 AM WBC 7.9 RBC 3.44 HGB 11.0 g/dLHCT 35.10 %MCV 102.0 fLMCH 32.0 pgMCHC 31.30 g/dLRDW SD 47 RDW CV 12.70 %MPV 9.60 fLPLT 216 NRBC# 0.00 NRBC% 0.0 %NEUT 74.30 %%LYMP 15.80 %%MONO 9.80 %%EOS 0.0 %%BASO 0.10 %#NEUT 5.88 #LYMP 1.25 #MONO 0.78 #EOS 0.00 #BASO 0.01 MANUAL DIFF NOT IND GLUCOSE 102.0 mg/dLSODIUM 140.0 mmol/LPOTASSIUM 4.10 mmol/LCHLORIDE 107.0 mmol/LCO2 25.0 mmol/LBUN 11.0 mg/dLCREATININE 0.70 mg/dLSGOT/AST 206.0 IU/LSGPT/ALT 131.0 IU/LALK PHOS 214.0 IU/LTOTAL PROTEIN 5.70 g/dLALBUMIN 3.20 g/dLTOTAL BILI 0.20 mg/dLCALCIUM 8.70 mg/dLAGE 65 GFR NonAA 84 GFR AA 102 eGFR >60 mL/min/1.73meGFR AA* >60 05/15/2015 6:15 AM GLUCOSE 105.0 mg/dLSODIUM 144.0 mmol/LPOTASSIUM 3.40 mmol/LCHLORIDE 108.0 mmol/LCO2 27.0 mmol/LBUN 9.0 mg/dLCREATININE 0.60 mg/dLSGOT/AST 115.0 IU/LSGPT/ALT 78.0 IU/LALK PHOS 207.0 IU/LTOTAL PROTEIN 5.80 g/dLALBUMIN 3.20 g/dLTOTAL BILI 0.30 mg/dLCALCIUM 8.70 mg/dLAGE 65 GFR NonAA 100 GFR AA 121 eGFR >60 mL/min/1.73meGFR AA* >60 WBC 6.6 RBC 3.34 HGB 10.60 g/dLHCT 34.50 %MCV 103.0 fLMCH 31.70 pgMCHC 30.70 g/dLRDW SD 49 RDW CV 13.0 %MPV 10.20 fLPLT 214 NRBC# 0.00 NRBC% 0.0 %NEUT 65.10 %%LYMP 23.10 %%MONO 8.30 %%EOS 2.90 %%BASO 0.60 %#NEUT 4.30 #LYMP 1.53 #MONO 0.55 #EOS 0.19 #BASO 0.04 MANUAL DIFF NOT IND 05/22/2015 10:10 PM WBC 7.3 RBC 2.84 HGB 8.70 g/dLHCT 27.30 %MCV 96.0 fLMCH 30.60 pgMCHC 31.90 g/dLRDW SD 58 RDW CV 16.70 %MPV 9.50 fLPLT 242 NRBC# 0.00 NRBC% 0.0 %NEUT 65.30 %%LYMP 18.80 %%MONO 11.50 %%EOS 4.0 %%BASO 0.40 %#NEUT 4.75 #LYMP 1.37 #MONO 0.84 #EOS 0.29 #BASO 0.03 MANUAL DIFF NOT IND 05/23/2015 6:00 AM WBC 5.8 RBC 2.82 HGB 8.80 g/dLHCT 27.0 %MCV 96.0 fLMCH 31.20 pgMCHC 32.60 g/dLRDW SD 58 RDW CV 16.80 %MPV 9.60 fLPLT 247 NRBC# 0.00 NRBC% 0.0 %NEUT 62.90 %%LYMP 20.90 %%MONO 11.10 %%EOS 4.80 %%BASO 0.30 %#NEUT 3.66 #LYMP 1.22 #MONO 0.65 #EOS 0.28 #BASO 0.02 MANUAL DIFF NOT IND GLUCOSE 97.0 mg/dLSODIUM 143.0 mmol/LPOTASSIUM 3.70 mmol/LCHLORIDE 108.0 mmol/LCO2 27.0 mmol/LBUN 5.0 mg/dLCREATININE 0.60 mg/dLSGOT/AST 26.0 IU/LSGPT/ALT 22.0 IU/LALK PHOS 153.0 IU/LTOTAL PROTEIN 5.20 g/dLALBUMIN 2.70 g/dLTOTAL BILI 0.50 mg/dLCALCIUM 8.60 mg/dLAGE 65 GFR NonAA 100 GFR AA 121 eGFR >60 mL/min/1.73meGFR AA* >60 05/24/2015 6:20 AM GLUCOSE 153.0 mg/dLSODIUM 143.0 mmol/LPOTASSIUM 3.90 mmol/LCHLORIDE 107.0 mmol/LCO2 27.0 mmol/LBUN 7.0 mg/dLCREATININE 0.60 mg/dLSGOT/AST 20.0 IU/LSGPT/ALT 20.0 IU/LALK PHOS 179.0 IU/LTOTAL PROTEIN 6.10 g/dLALBUMIN 3.10 g/dLTOTAL BILI 0.40 mg/dLCALCIUM 9.20 mg/dLAGE 65 GFR NonAA 100 GFR AA 121 eGFR >60 mL/min/1.73meGFR AA* >60 WBC 7.4 RBC 3.14 HGB 9.70 g/dLHCT 30.20 %MCV 96.0 fLMCH 30.90 pgMCHC 32.10 g/dLRDW SD 55 RDW CV 16.10 %MPV 9.60 fLPLT 331 NRBC# 0.00 NRBC% 0.0 %NEUT 91.50 %%LYMP 6.70 %%MONO 1.70 %%EOS 0.0 %%BASO 0.10 %#NEUT 6.80 #LYMP 0.50 #MONO 0.13 #EOS 0.00 #BASO 0.01 MANUAL DIFF SEE BELOW SEGS 86 BANDS 7 LYMPHS 6 MONOS 1 05/25/2015 1:18 PM Hep A Ab, IgM Negative HBsAg Screen Negative Hep B Core Ab, IgM Negative Hep B Surface Ab, Qual Reactive Index ValueHCV Ab <0.1 HIV AG/AB COMBO 0.12 05/26/2015 6:18 AM WBC 8.1 RBC 2.87 HGB 8.90 g/dLHCT 28.10 %MCV 98.0 fLMCH 31.0 pgMCHC 31.70 g/dLRDW SD 55 RDW CV 15.60 %MPV 9.30 fLPLT 318 NRBC# 0.00 NRBC% 0.0 %NEUT 68.10 %%LYMP 19.20 %%MONO 8.90 %%EOS 3.60 %%BASO 0.20 %#NEUT 5.53 #LYMP 1.56 #MONO 0.72 #EOS 0.29 #BASO 0.02 MANUAL DIFF NOT IND 08/26/2015 11:00 AM WBC 5.2 RBC 4.03 HGB 12.50 g/dLHCT 39.20 %MCV 97.0 fLH 31.0 pgHC 31.90 g/dLRDW SD 49 RDW CV 13.60 %MPV 10.0 fLPLT 255 NRBC# 0.00 NRBC% 0.0 %NEUT 54.90 %%LYMP 30.80 %%MONO 7.50 %%EOS 5.20 %%BASO 1.20 %#NEUT 2.84 #LYMP 1.59 #MONO 0.39 #EOS 0.27 #BASO 0.06 MANUAL DIFF NOT IND TRIGLYCERIDES 75.0 mg/dLCHOLESTEROL 161.0 mg/dLHDL 73.0 mg/dLTOT CHOL/HDL 2.2 LDL (CALC) 73.0 mg/dLTSH 1.710 uIU/mLGLUCOSE 84.0 mg/dLSODIUM 142.0 mmol/LPOTASSIUM 4.10 mmol/LCHLORIDE 105.0 mmol/LCO2 28.0 mmol/LBUN 15.0 mg/dLCREATININE 0.70 mg/dLSGOT/AST 19.0 IU/LSGPT/ALT 10.0 IU/LALK PHOS 114.0 IU/LTOTAL PROTEIN 6.80 g/dLALBUMIN 4.0 g/dLTOTAL BILI 0.20 mg/dLCALCIUM 9.70 mg/dLAGE 65 GFR NonAA 84 GFR AA 102 eGFR >60 mL/min/1.73meGFR AA* >60 History Of Immunizations Not available. History of Past Illness Name Date of Onset Comments Hypothyroidism Depression Incisional Hernia: No Obstruction Or Gangrene May 10 2015 11:25AM Postoperative Follow-up Jun 08 2015 10:19AM Postoperative Follow-Up Visit Jul 06 2015 10:00AM Hypothyroidism, Acquired Jul 30 2015 9:45AM History of gastrointestinal bleeding Jul 30 2015 9:45AM Acid Reflux Jul 30 2015 9:45AM Osteoarthritis Jul 30 2015 9:45AM Postoperative Follow-up Jun 02 2015 12:13PM Hypothyroidism, Acquired Aug 26 2015 10:54AM History of gastrointestinal bleeding Aug 26 2015 10:54AM Osteoarthritis of knee Sep 01 2015 9:47AM Lymphedema Sep 01 2015 9:05AM Osteoarthritis Sep 01 2015 9:05AM Earache on left Sep 01 2015 9:05AM History of GI bleed Sep 01 2015 9:05AM Fatigue Jan 25 2016 3:07PM Osteoarthritis Jan 25 2016 3:07PM History of GI bleed Jan 25 2016 3:07PM Bowel habit changes Jan 25 2016 3:07PM Venous insufficiency Jan 25 2016 3:07PM Dermatitis Jan 25 2016 3:07PM Easy bruising Jan 25 2016 3:07PM Payers Insurance Name Company Name Plan Name Plan Number Policy Number Policy Group Number Start Date [facility] [id number] N/A History of Encounters Visit Date Visit Type Provider 01/25/2016 Office visit Iesha De Luna MD 09/01/2015 Office visit Iesha De Luna MD 07/30/2015 Office visit Iesha De Luna MD 07/06/2015 Office visit Tanvir Ayala MD 06/08/2015 Office visit Tanvir Ayala MD 06/02/2015 Office visit Tanvir Ayala MD 05/26/2015 [facility] Tanvir Ayala MD 05/25/2015 [facility] Tanvir Ayala MD 05/22/2015 [facility] Tanvir Ayala MD 05/14/2015 [facility] Tanvir Ayala MD 05/13/2015 [facility] Tanvir Ayala MD 05/10/2015 Office visit Tanvir Ayala MD
--- OUTSIDE RECORDS SUMMARY | 2018-09-07 12:53 | XMS REPORT ---
Author Tanvir Haro [facility] Address [address] [place], [place] [id number] Care Team Providers Care Contract Driver Name Role Phone Tanvir Ayala PCP Unavailable Allergies and Adverse Reactions Name Reaction Notes [place] Plan of Treatment Not available. Medications Active Name Start Date Estimated Completion Date SIG Comments tramadol 50 mg oral tablet take 1 tablet (50 mg) by oral route every 4-6 hours as needed levothyroxine 100 mcg oral tablet take 1 tablet (100 mcg) by oral route once daily venlafaxine 75 mg oral tablet take 1 tablet by oral route daily Dyazide 37.5-25 mg oral capsule 06/08/2015 TAKE ONE CAPSULE BY MOUTH DAILY FOR 10 DAYS Name Start Date Expiration Date SIG Comments Dyazide 37.5-25 mg oral capsule 06/02/2015 06/12/2015 take 1 capsule by oral route once daily for 10 days Problem List Description Status Onset Hypothyroidism Active Depression Active Vital Signs Date Time BP-Sys(mm[Hg] BP-Rosita(mm[Hg]) HR(bpm) RR(rpm) Temp WT HT HC BMI BSA BMI Percentile O2 Sat(%) 07/06/2015 10:00:00 AM 134 mmHg 90 mmHg [...] Comments Tobacco Never smoker History of Procedures Not available. Results Summary Data and Description Results 05/14/2015 6:40 AM WBC 7.9 RBC 3.44 HGB 11.0 g/dLHCT 35.10 %MCV 102.0 fLMCH 32.0 pgMCHC 31.30 g/dLRDW CV 12.70 %MPV 9.60 fLPLT 216 %NEUT 74.30 %%LYMP 15.80 %%MONO 9.80 %%EOS 0.0 %%BASO 0.10 %#NEUT 5.88 #LYMP 1.25 #MONO 0.78 #EOS 0.00 #BASO 0.01 GLUCOSE 102.0 mg/dLSODIUM 140.0 mmol/LPOTASSIUM 4.10 mmol/LCHLORIDE 107.0 mmol/LCO2 25.0 mmol/LBUN 11.0 mg/dLCREATININE 0.70 mg/dLSGOT/AST 206.0 IU/LSGPT/ALT 131.0 IU/LALK PHOS 214.0 IU/LTOTAL PROTEIN 5.70 g/dLALBUMIN 3.20 g/dLTOTAL BILI 0.20 mg/dLCALCIUM 8.70 mg/dLeGFR >60 mL/min/1.73m 05/15/2015 6:15 AM GLUCOSE 105.0 mg/dLSODIUM 144.0 mmol/LPOTASSIUM 3.40 mmol/LCHLORIDE 108.0 mmol/LCO2 27.0 mmol/LBUN 9.0 mg/dLCREATININE 0.60 mg/dLSGOT/AST 115.0 IU/LSGPT/ALT 78.0 IU/LALK PHOS 207.0 IU/LTOTAL PROTEIN 5.80 g/dLALBUMIN 3.20 g/dLTOTAL BILI 0.30 mg/dLCALCIUM 8.70 mg/dLeGFR >60 mL/min/1.73mWBC 6.6 RBC 3.34 HGB 10.60 g/dLHCT 34.50 %MCV 103.0 fLMCH 31.70 pgMCHC 30.70 g/dLRDW CV 13.0 %MPV 10.20 fLPLT 214 %NEUT 65.10 %%LYMP 23.10 %%MONO 8.30 %%EOS 2.90 %%BASO 0.60 %#NEUT 4.30 #LYMP 1.53 #MONO 0.55 #EOS 0.19 #BASO 0.04 05/22/2015 10:10 PM WBC 7.3 RBC 2.84 HGB 8.70 g/dLHCT 27.30 %MCV 96.0 fLMCH 30.60 pgMCHC 31.90 g/dLRDW CV 16.70 %MPV 9.50 fLPLT 242 %NEUT 65.30 %%LYMP 18.80 %%MONO 11.50 %%EOS 4.0 %%BASO 0.40 %#NEUT 4.75 #LYMP 1.37 #MONO 0.84 #EOS 0.29 #BASO 0.03 05/23/2015 6:00 AM WBC 5.8 RBC 2.82 HGB 8.80 g/dLHCT 27.0 %MCV 96.0 fLMCH 31.20 pgMCHC 32.60 g/dLRDW CV 16.80 %MPV 9.60 fLPLT 247 %NEUT 62.90 %%LYMP 20.90 %%MONO 11.10 %%EOS 4.80 %%BASO 0.30 %#NEUT 3.66 #LYMP 1.22 #MONO 0.65 #EOS 0.28 #BASO 0.02 GLUCOSE 97.0 mg/dLSODIUM 143.0 mmol/LPOTASSIUM 3.70 mmol/LCHLORIDE 108.0 mmol/LCO2 27.0 mmol/LBUN 5.0 mg/dLCREATININE 0.60 mg/dLSGOT/AST 26.0 IU/LSGPT/ALT 22.0 IU/LALK PHOS 153.0 IU/LTOTAL PROTEIN 5.20 g/dLALBUMIN 2.70 g/dLTOTAL BILI 0.50 mg/dLCALCIUM 8.60 mg/dLeGFR >60 mL/min/1.73m 05/24/2015 6:20 AM GLUCOSE 153.0 mg/dLSODIUM 143.0 mmol/LPOTASSIUM 3.90 mmol/LCHLORIDE 107.0 mmol/LCO2 27.0 mmol/LBUN 7.0 mg/dLCREATININE 0.60 mg/dLSGOT/AST 20.0 IU/LSGPT/ALT 20.0 IU/LALK PHOS 179.0 IU/LTOTAL PROTEIN 6.10 g/dLALBUMIN 3.10 g/dLTOTAL BILI 0.40 mg/dLCALCIUM 9.20 mg/dLeGFR >60 mL/min/1.73mWBC 7.4 RBC 3.14 HGB 9.70 g/dLHCT 30.20 %MCV 96.0 fLMCH 30.90 pgMCHC 32.10 g/dLRDW CV 16.10 %MPV 9.60 fLPLT 331 %NEUT 91.50 %%LYMP 6.70 %%MONO 1.70 %%EOS 0.0 %%BASO 0.10 %#NEUT 6.80 #LYMP 0.50 #MONO 0.13 #EOS 0.00 #BASO 0.01 05/25/2015 1:18 PM Hep A Ab, IgM Negative HBsAg Screen Negative Hep B Core Ab, IgM Negative Hep B Surface Ab, Qual Reactive Index ValueHIV AG/AB COMBO 0.12 05/26/2015 6:18 AM WBC 8.1 RBC 2.87 HGB 8.90 g/dLHCT 28.10 %MCV 98.0 fLH 31.0 pgHC 31.70 g/dLRDW CV 15.60 %MPV 9.30 fLPLT 318 %NEUT 68.10 %%LYMP 19.20 %%MONO 8.90 %%EOS 3.60 %%BASO 0.20 %#NEUT 5.53 #LYMP 1.56 #MONO 0.72 #EOS 0.29 #BASO 0.02 History Of Immunizations Not available. History of Past Illness Name Date of Onset Comments Hypothyroidism Depression Incisional Hernia: No Obstruction Or Gangrene May 10 2015 11:25AM Postoperative Follow-up Jun 08 2015 10:19AM Postoperative Follow-Up Visit Jul 06 2015 10:00AM Payers Insurance Name Company Name Plan Name Plan Number Policy Number Policy Group Number Start Date [facility] [id number] N/A History of Encounters Visit Date Visit Type Provider 07/06/2015 Office visit Tanvir Ayala MD 06/08/2015 Office visit Tanvir Ayala MD 06/02/2015 Office visit Tanvir Ayala MD 05/26/2015 [facility] Tanvir Ayala MD 05/25/2015 [facility] Tanvir Ayala MD 05/22/2015 [facility] Tanvir Ayala MD 05/14/2015 [facility] Tanvir Ayala MD 05/13/2015 [facility] Tanvir Ayala MD 05/10/2015 Office visit Tanvir Ayala MD
--- OUTSIDE RECORDS SUMMARY | 2018-09-07 12:54 | XMS REPORT ---
Author Author Iesha De Luna Organization [facility] Address [address] [place], [place] [phone] Care Team Providers Care Factory Supervisor Name Role Phone Iesha De Luna PCP Allergies and Adverse Reactions Name Reaction Notes [place] Plan of Treatment Not available. Medications Active [...] by oral route daily for 30 days Name Start Date Expiration [...] HC BMI BSA BMI Percentile O2 Sat(%) 07/30/2015 9:38:00 AM 112 mmHg 84 mmHg [...] %MCV 98.0 fLMCH 31.0 pgMCHC 31.70 g/dLRDW CV 15.60 %MPV 9.30 fLPLT [...] 9:45AM Postoperative Follow-up Jun 02 2015 12:13PM Payers Insurance Name Company Name Plan Name Plan Number Policy Number Policy Group Number Start Date [facility] [id number] N/A History of Encounters Visit Date Visit Type Provider 07/30/2015 Office visit Iesha De Luna MD 07/06/2015 Office visit Tanvir Ayala MD 06/08/2015 Office visit Tanvir Ayala MD 06/02/2015 Office visit Tanvir Ayala MD 05/26/2015 [facility] Tanvir Ayala MD 05/25/2015 [facility] Tanvir Ayala MD 05/22/2015 [facility] Tanvir Ayala MD 05/14/2015 [facility] Tanvir Ayala MD 05/13/2015 [facility] Tanvir Ayala MD 05/10/2015 Office visit Tanvir Ayala MD
--- OUTSIDE RECORDS SUMMARY | 2018-09-07 12:54 | XMS REPORT ---
Author Author Iesha De Luna Organization [facility] Address [address] [place], [place] [address] Care Team Providers Care Public Welfare Worker Name Role Phone Iesha De Luna PCP Allergies and Adverse Reactions Name Reaction Notes [place] Plan of Treatment Planned Activity Comments Planned Date Planned Time Plan/Goal COMPLETE CBC W/AUTO DIFF WBC 08/26/2015 12:00 AM COMPREHEN METABOLIC PANEL 08/26/2015 12:00 AM LIPID PANEL 08/26/2015 12:00 AM ASSAY THYROID STIM HORMONE 08/26/2015 12:00 AM Medications Active Name Start Date [...] of gastrointestinal bleeding Aug 26 2015 10:54AM Payers Insurance Name Company Name Plan Name Plan Number Policy Number Policy Group Number Start Date [facility] [id number] N/A History of Encounters Visit Date Visit Type Provider 07/30/2015 Office visit Iesha De Luna MD 07/06/2015 Office visit Tanvir Ayala MD 06/08/2015 Office visit Tanvir Ayala MD 06/02/2015 Office visit Tanvir Ayala MD 05/26/2015 [facility] Tanvir Ayala MD 05/25/2015 [facility] Tanvir Ayala MD 05/22/2015 [facility] Tanvir Ayala MD 05/14/2015 [facility] Tanvir Ayala MD 05/13/2015 [facility] Tanvir Ayala MD 05/10/2015 Office visit Tanvir Ayala MD
--- OUTSIDE RECORDS SUMMARY | 2018-09-07 12:54 | XMS REPORT ---
Author Tanvir Haro [facility] Address [address] [place], [place] [phone] Care Team Providers Care Geospatial Specialist Name Role Phone Tanvir Ayala PCP Unavailable Allergies and Adverse Reactions Name Reaction Notes [place] Plan of Treatment Not available. Medications Active Name Start Date Estimated Completion Date SIG Comments tramadol 50 mg oral tablet take 1 tablet (50 mg) by oral route every 4-6 hours as needed levothyroxine 100 mcg oral tablet take 1 tablet (100 mcg) by oral route once daily venlafaxine 75 mg oral tablet take 1 tablet by oral route daily Problem List Description Status Onset Hypothyroidism Active Depression Active Vital Signs Date Time BP-Sys(mm[Hg] BP-Rosita(mm[Hg]) HR(bpm) RR(rpm) Temp WT HT HC BMI BSA BMI Percentile O2 Sat(%) 05/10/2015 11:23:00 AM 110 mmHg 76 mmHg 63 bpm 16 rpm 97.1 F 277 lbs 96 % Social History Name Description Comments Tobacco Never smoker History of Procedures Not available. Results Summary Not available. History Of Immunizations Not available. History of Past Illness Name Date of Onset Comments Hypothyroidism Depression Incisional Hernia: No Obstruction Or Gangrene May 10 2015 11:25AM Payers Insurance Name Company Name Plan Name Plan Number Policy Number Policy Group Number Start Date [facility] [id number] N/A History of Encounters Visit Date Visit Type Provider 05/10/2015 Office visit Tanvir Ayala MD
--- OUTSIDE RECORDS SUMMARY | 2018-09-07 12:55 | XMS REPORT ---
Author Author Iesha De Luna Organization [facility] Address [address] [place], [place] [address] Care Team Providers Care Cook Chill Technician Name Role Phone Iesha De Luna PCP Iesha De Luna PreferredProvider Allergies and Adverse Reactions Name Reaction Notes [place] Contrast media allergy nausea, rash Seafood Shell Fish (shrimp, crayfish, lobster, crab) Premarin weight gain Plan of Treatment Planned Activity Comments Planned Date Planned Time Plan/Goal Comprehensive metabolic panel 01/25/2016 12:00 AM Total iron measurement 01/25/2016 12:00 AM Serum or plasma ferritin measurement 01/25/2016 12:00 AM Thyroid stimulating hormone (TSH) measurement 10/18/2016 12:00 AM Medications Active Name Start Date [...] pantoprazole 40 mg oral tablet,delayed release (DR/EC) 02/07/2016 TAKE ONE TABLET BY MOUTH DAILY pantoprazole 40 mg oral tablet,delayed release (DR/EC) 08/01/2016 TAKE ONE TABLET BY MOUTH DAILY Name Start Date Expiration Date SIG Comments Dyazide 37.5-25 mg oral capsule 06/02/2015 06/12/2015 take 1 capsule by oral route once daily for 10 days pantoprazole 40 mg oral tablet,delayed release (DR/EC) 08/13/2015 2016 take 1 tablet by oral route daily for 30 days clobetasol-emollient 0.05 % topical foam 01/25/2016 05/24/2016 apply to the affected area(s) by topical route 2 times per day in the morning and evening for 30 days fluocinolone acetonide oil 0.01 % otic drops 06/23/2016 06/30/2016 instill 5 drops into right ear by otic route 2 times per day for 7 days Discontinued Name Start Date Discontinued Date [...] HC BMI BSA BMI Percentile O2 Sat(%) 10/18/2016 2:24:00 PM 132 mmHg 80 mmHg 63 bpm 18 rpm 97.4 F 291.375 lbs 68 in 44.30 kg/m2 2.52 m2 100 % 06/23/2016 11:15:00 AM 116 mmHg 68 mmHg 66 bpm 18 rpm 98.7 F 287 lbs 68 in 43.6378 kg/m 2.4992 m 95 % 02/16/2016 2:38:00 PM 122 mmHg 74 mmHg 74 bpm 18 rpm 98.4 F 281.375 lbs 68 in 42.78 kg/m2 2.47 m2 96 % 01/25/2016 3:02:00 PM 120 mmHg 76 mmHg 71 bpm 18 rpm 98.8 F 283.125 lbs 68 in 43.0486 kg/m 2.4822 m 97 % 09/01/2015 9:02:00 AM 124 mmHg 70 mmHg 65 bpm 18 rpm 98.1 F 278.125 lbs 68 in 42.29 kg/m2 2.46 m2 98 % 07/30/2015 9:38:00 AM 112 mmHg 84 mmHg 84 bpm 16 rpm 98.7 F 273.125 lbs 68 in 41.5281 kg/m 2.438 m 97 % 07/06/2015 10:00:00 AM 134 mmHg [...] 12:00 AM ASSAY THYROID STIM HORMONE Returned 01/25/2016 12:00 AM COMPLETE CBC W/AUTO DIFF WBC Returned 01/25/2016 12:00 AM ASSAY THYROID STIM HORMONE Returned 01/25/2016 12:00 AM ASSAY OF FREE THYROXINE Returned 01/25/2016 12:00 AM IRON BINDING TEST Returned 01/25/2016 12:00 AM LIPID PANEL Returned 01/25/2016 12:00 AM OCCULT BLD FECES 1-3 TESTS Returned 01/25/2016 12:00 AM VITAMIN B-12 Returned 01/25/2016 12:00 AM ANTINUCLEAR ANTIBODIES EDE Returned 01/25/2016 12:00 AM THER/PROPH/DIAG INJ SC/IM Reviewed 01/25/2016 12:00 AM Kenalog, Per 10 Mg [facility]#[id number] Reviewed 02/16/2016 12:00 AM [facility] MEDICARE - flu vaccine administration Reviewed 02/16/2016 12:00 AM INFLUENZA VACCINE QUADRIVALENT 3 YRS PLUS IM Reviewed Results Summary Date and Description Results 05/14/2015 6:40 AM WBC [...] 4.03 HGB 12.50 g/dLHCT 39.20 %MCV 97.0 fLMCH 31.0 pgMCHC 31.90 g/dLRDW SD 49 RDW CV 13.60 [...] AA 102 eGFR >60 mL/min/1.73meGFR AA* >60 01/28/2016 10:40 AM WBC 6.5 RBC 4.05 HGB 12.90 g/dLHCT 40.50 %MCV 100.0 fLMCH 31.90 pgMCHC 31.90 g/dLRDW SD 45 RDW CV 12.20 %MPV 9.50 fLPLT 246 NRBC# 0.00 NRBC% 0.0 %NEUT 59.30 %%LYMP 27.0 %%MONO 8.20 %%EOS 4.20 %%BASO 0.80 %#NEUT 3.85 #LYMP 1.75 #MONO 0.53 #EOS 0.27 #BASO 0.05 MANUAL DIFF NOT IND GLUCOSE 91.0 mg/dLSODIUM 142.0 mmol/LPOTASSIUM 4.30 mmol/LCHLORIDE 104.0 mmol/LCO2 29.0 mmol/LBUN 14.0 mg/dLCREATININE 0.70 mg/dLSGOT/AST 23.0 IU/LSGPT/ALT 12.0 IU/LALK PHOS 130.0 IU/LTOTAL PROTEIN 7.0 g/dLALBUMIN 4.0 g/dLTOTAL BILI 0.30 mg/dLCALCIUM 9.60 mg/dLAGE 65 GFR NonAA 84 GFR AA 102 eGFR >60 mL/min/1.73meGFR AA* >60 TRIGLYCERIDES 58.0 mg/dLCHOLESTEROL 166.0 mg/dLHDL 80.0 mg/dLTOT CHOL/HDL 2.1 LDL (CALC) 74.0 mg/dLOCC BLD STOOL NEGATIVE TSH 1.570 uIU/mLFREE T4 1.14 FERRITIN 72.0 ng/mLIRON TOTAL 109.0 ug/dLTransferrin 246.0 mg/dLTIBC Calculation 308 %Saturation Calc 35 VITAMIN B12 358.0 pg/mLANA Direct Negative History Of Immunizations Name Date Admin Mfg Name Mfg Code Trade Name Lot# Route Inj Vis Given Vis Pub CVX Influenza 02/16/2016 sanofi pasteur PMC Fluzone [id number] Intramuscular Right Deltoid 02/16/2016 11/16/2014 141 History of Past Illness Name Date of [...] 3:07PM Easy bruising Jan 25 2016 3:07PM Right leg pain Jan 25 2016 4:34PM Flu Vaccine Feb 16 2016 3:51PM Hypothyroidism, Acquired Feb 16 2016 2:40PM Lymphedema Feb 16 2016 2:40PM Obesity Feb 16 2016 2:40PM Osteoarthritis Feb 16 2016 2:40PM Osteoarthritis of knee Jul 18 2016 2:16PM Seborrhea Jun 23 2016 11:19AM Sebaceous cyst Jun 23 2016 11:19AM Hypothyroidism, Acquired Oct 18 2016 2:27PM Osteoarthritis Oct 18 2016 2:27PM Payers Insurance Name Company Name Plan Name Plan Number Policy Number Policy Group Number Start Date [facility] [id number] N/A History of Encounters Visit Date Visit Type Provider 10/18/2016 Office visit Iesha De Luna MD 06/23/2016 Office visit Iesha De Luna MD 02/16/2016 Office visit Iesha De Luna MD 01/25/2016 Office visit Iesha De Luna MD 09/01/2015 Office visit Iesha De Luna MD 07/30/2015 Office visit Iesha De Luna MD 07/06/2015 Office visit Tanvir Ayala MD 06/08/2015 Office visit Tanvir Ayala MD 06/02/2015 Office visit Tanvir Ayala MD 05/26/2015 Hospital Tanvir Ayala MD 05/25/2015 Hospital Tanvir Ayala MD 05/22/2015 [facility] Tanvir Ayala MD 05/14/2015 [facility] Tanvir Ayala MD 05/13/2015 Hospital Tanvir Ayala MD 05/10/2015 Office visit Tanvir Ayala MD
--- OUTSIDE RECORDS SUMMARY | 2018-09-07 12:55 | XMS REPORT ---
Author Author Iesha De Luna Organization [facility] Address [address] [place], [place] [phone] Care Team Providers Care Palm Gatherer Name Role Phone Iesha De Luna PCP Iesha De Luna PreferredProvider Allergies and Adverse Reactions Name Reaction Notes [place] Contrast media allergy nausea, rash Seafood Shell Fish (shrimp, crayfish, lobster, crab) Premarin weight gain Plan of Treatment Planned Activity Comments Planned Date Planned Time Plan/Goal Comprehensive metabolic panel 01/25/2016 12:00 AM Total iron measurement 01/25/2016 12:00 AM Serum or plasma ferritin measurement 01/25/2016 12:00 AM Medications Active Name Start [...] 02/07/2016 TAKE ONE TABLET BY MOUTH DAILY Name [...] HC BMI BSA BMI Percentile O2 Sat(%) 06/23/2016 11:15:00 AM 116 mmHg 68 mmHg 66 bpm 18 rpm 98.7 F 287 lbs 68 in 43.64 kg/m2 2.50 m2 95 % 02/16/2016 2:38:00 PM 122 mmHg 74 mmHg 74 bpm 18 rpm 98.4 F 281.375 lbs 68 in 42.7825 kg/m 2.4746 m 96 % 01/25/2016 3:02:00 PM 120 mmHg [...] 01/25/2016 12:00 AM Kenalog, Per 10 Mg [facility]#[id number] Reviewed 02/16/2016 12:00 AM [facility] MEDICARE - flu vaccine administration Reviewed 02/16/2016 12:00 AM INFLUENZA VACCINE QUADRIVALENT 3 YRS PLUS IM Reviewed Results Summary Data and Description Results 05/14/2015 [...] CVX Influenza 02/16/2016 sanofi pasteur PMC Fluzone [id number] Intramuscular Right Deltoid 02/16/2016 11/16/2014 141 History [...] Osteoarthritis of knee Jul 18 2016 2:16PM Payers Insurance Name Company Name Plan Name Plan Number Policy Number Policy Group Number Start Date [facility] [id number] N/A History of Encounters Visit Date Visit Type Provider 06/23/2016 Office visit Iesha De Luna MD [...] [facility] Tanvir Ayala MD 05/13/2015 [facility] Tanvir Ayala MD 05/10/2015 Office visit Tanvir Ayala MD
--- OUTSIDE RECORDS SUMMARY | 2018-09-07 12:56 | XMS REPORT ---
Author Author Iesha De Luna Organization [facility] Address [address] [place], [place] [address] Care Team Providers Care Veterinary Livestock Inspector Name Role Phone Iesha De Luna PCP Allergies and Adverse Reactions Name Reaction Notes [place] Plan of Treatment Not available. Medications Active [...] pantoprazole 40 mg oral tablet,delayed release (DR/EC) take 1 tablet by oral route 2 times a day Name Start Date Expiration Date SIG Comments [...] 2015 9:45AM Osteoarthritis Jul 30 2015 9:45AM Payers Insurance Name Company Name Plan Name Plan Number Policy Number Policy Group Number Start Date [facility] [id number] N/A History of Encounters Visit Date Visit Type Provider 07/30/2015 Office visit Iesha De Luna MD 07/06/2015 Office visit Tanvir Ayala MD 06/08/2015 Office visit Tanvir Ayala MD 06/02/2015 Office visit Tanvir Ayala MD 05/26/2015 [facility] Tanvir Ayala MD 05/25/2015 [facility] Tanvir Ayala MD 05/22/2015 [facility] Tanvir Ayala MD 05/14/2015 [facility] Tanvir Ayala MD 05/13/2015 [facility] Tanvir Ayala MD 05/10/2015 Office visit Tanvir Ayala MD
--- OUTSIDE RECORDS SUMMARY | 2018-09-07 12:56 | XMS REPORT ---
Author Author Iesha De Luna Organization [facility] Address [address] [place], [place] [phone] Care Team Providers Care Market Development Trainer Name Role Phone Iesha De Luna PCP Iesha De Luna PreferredProvider Allergies and Adverse Reactions Name Reaction Notes [place] Contrast media allergy nausea, rash Seafood Shell [...] 01/25/2016 12:00 AM Kenalog, Per 10 Mg [facility]#[id number] Reviewed 02/16/2016 12:00 AM [facility] MEDICARE - flu vaccine administration Reviewed 02/16/2016 [...] CVX Influenza 02/16/2016 sanofi pasteur PMC Fluzone [id number] Intramuscular Right Deltoid 02/16/2016 11/16/2014 141 History [...] 11:19AM Sebaceous cyst Jun 23 2016 11:19AM Payers Insurance Name Company Name Plan Name Plan Number Policy Number Policy Group Number Start Date [facility] [id number] N/A History of Encounters Visit Date Visit [...] MD 05/26/2015 Hospital Tanvir Ayala MD 05/25/2015 [facility] Tanvir Ayala MD 05/22/2015 [facility] Tanvir Ayala MD 05/14/2015 [facility] Tanvir Ayala MD 05/13/2015 Hospital Tanvir Ayala MD 05/10/2015 Office visit Tanvir Ayala MD
--- OUTSIDE RECORDS SUMMARY | 2018-09-07 12:57 | XMS REPORT ---
Author Author Iesha De Luna Organization [facility] Address [address] [place], [place] [address] Care Team Providers Care Windows Software Engineer Name Role Phone Iesha De Luna PCP Allergies and Adverse Reactions Name Reaction Notes [place] Contrast media allergy nausea, rash Seafood Shell Fish (shrimp, crayfish, lobster, crab) Premarin weight gain Plan of Treatment Not available. Medications Active [...] HC BMI BSA BMI Percentile O2 Sat(%) 09/01/2015 9:02:00 AM 124 mmHg 70 mmHg [...] 1.56 #MONO 0.72 #EOS 0.29 #BASO 0.02 08/26/2015 11:00 AM WBC 5.2 RBC 4.03 HGB 12.50 g/dLHCT 39.20 %MCV 97.0 fLMCH 31.0 pgMCHC 31.90 g/dLRDW CV 13.60 %MPV 10.0 fLPLT 255 %NEUT 54.90 %%LYMP 30.80 %%MONO 7.50 %%EOS 5.20 %%BASO 1.20 %#NEUT 2.84 #LYMP 1.59 #MONO 0.39 #EOS 0.27 #BASO 0.06 TRIGLYCERIDES 75.0 mg/dLCHOLESTEROL 161.0 mg/dLHDL 73.0 mg/dLLDL (CALC) 73.0 mg/dLTSH 1.710 uIU/mLGLUCOSE 84.0 mg/dLSODIUM 142.0 mmol/LPOTASSIUM 4.10 mmol/LCHLORIDE 105.0 mmol/LCO2 28.0 mmol/LBUN 15.0 mg/dLCREATININE 0.70 mg/dLSGOT/AST 19.0 IU/LSGPT/ALT 10.0 IU/LALK PHOS 114.0 IU/LTOTAL PROTEIN 6.80 g/dLALBUMIN 4.0 g/dLTOTAL BILI 0.20 mg/dLCALCIUM 9.70 mg/dLeGFR >60 mL/min/1.73m History Of Immunizations Not available. History of [...] of GI bleed Sep 01 2015 9:05AM Payers Insurance Name Company Name Plan Name Plan Number Policy Number Policy Group Number Start Date [facility] [id number] N/A History of Encounters Visit Date Visit Type Provider 09/01/2015 Office visit Iesha De Luna MD 07/30/2015 Office visit Iesha De Luna MD 07/06/2015 Office visit Tanvir Ayala MD 06/08/2015 Office visit Tanvir Ayala MD 06/02/2015 Office visit Tanvir Ayala MD 05/26/2015 [facility] Tanvir Ayala MD 05/25/2015 [facility] Tanvir Ayala MD 05/22/2015 [facility] Tanvir Ayala MD 05/14/2015 [facility] Tanvir Ayala MD 05/13/2015 [facility] Tanvir Ayala MD 05/10/2015 Office visit Tanvir Ayala MD
--- OUTSIDE RECORDS SUMMARY | 2018-09-07 12:57 | XMS REPORT ---
Author Tanvir Haro [facility] Address [address] [place], [place] [address] Care Team Providers Care Strategic Procurement Manager Name Role Phone Tanvir Ayala PCP Unavailable Allergies and Adverse Reactions Name Reaction Notes [place] Plan of Treatment Not available. Medications Active [...] route daily Dyazide 37.5-25 mg oral capsule 06/02/2015 06/12/2015 take 1 capsule by oral route once daily for 10 days Dyazide 37.5-25 mg oral capsule 06/08/2015 TAKE ONE CAPSULE BY MOUTH DAILY FOR 10 DAYS Problem List Description Status Onset Hypothyroidism Active Depression Active Vital Signs Date Time BP-Sys(mm[Hg] BP-Rosita(mm[Hg]) HR(bpm) RR(rpm) Temp WT HT HC BMI BSA BMI Percentile O2 Sat(%) 06/08/2015 10:18:00 AM 138 mmHg 94 mmHg [...] 11:25AM Postoperative Follow-up Jun 08 2015 10:19AM Payers Insurance Name Company Name Plan Name Plan Number Policy Number Policy Group Number Start Date [facility] [id number] N/A History of Encounters Visit Date Visit Type Provider 06/08/2015 Office visit Tanvir Ayala MD 06/02/2015 Office visit Tanvir Ayala MD 05/25/2015 [facility] Tanvir Ayala MD 05/14/2015 [facility] Tanvir Ayala MD 05/13/2015 [facility] Tanvir Ayala MD 05/10/2015 Office visit Tanvir Ayala MD
--- OUTSIDE RECORDS SUMMARY | 2018-09-07 12:58 | XMS REPORT ---
Author Author Iesha De Luna Organization [facility] Address [address] [place], [place] [address] Care Team Providers Care Tire Finisher Name Role Phone Iesha De Luna PCP Iesha De Luna PreferredProvider Allergies and Adverse Reactions Name Reaction Notes [place] Contrast media allergy nausea, rash Seafood Shell [...] 01/25/2016 12:00 AM Kenalog, Per [address] [facility]#[id number] Reviewed 02/16/2016 12:00 AM [facility] MEDICARE - flu vaccine administration Reviewed 02/16/2016 12:00 AM INFLUENZA VACCINE QUADRIVALENT 3 YRS PLUS IM Reviewed 10/18/2016 12:00 AM THERAPEUTIC PROPHYLACTIC/DX INJECTION SUBQ/IM Reviewed 10/18/2016 12:00 AM Kenalog 40mg Injection, [facility] Medicare Reviewed Results Summary Date and Description Results [...] Of Immunizations Name Date Admin Mfg Name Mf Code Trade Name Lot# Route Inj Vis Given Vis Pub CVX Influenza 02/16/2016 sanofi pasteur PMC Fluzone [id number] Intramuscular Right Deltoid 02/16/2016 11/16/2014 141 History [...] 2016 2:27PM Osteoarthritis Oct 18 2016 2:27PM Osteoarthritis Oct 18 2016 3:40PM Payers Insurance Name Company Name Plan Name Plan Number Policy Number Policy Group Number Start Date [facility] [id number] N/A [employer] Assistance [facility] Financial Sana [id number] Friday, 2016 History of Encounters Visit Date Visit Type [...] 06/02/2015 Office visit Tanvir Ayala MD 05/26/2015 [facility] Tanvir Ayala MD 05/25/2015 [facility] Tanvir Ayala MD 05/22/2015 [facility] Tanvir Ayala MD 05/14/2015 [facility] Tanvir Ayala MD 05/13/2015 [facility] Tanvir Ayala MD 05/10/2015 Office visit Tavnir Ayala MD
--- OUTSIDE RECORDS SUMMARY | 2018-09-07 12:59 | XMS REPORT ---
Author Author Iesha De Luna Organization [facility] Address [address] [place], [place] [address] Care Team Providers Care Snath Handle Assembler Name Role Phone Iesha De Luna PCP Allergies and Adverse Reactions Name Reaction Notes [place] Contrast media allergy nausea, rash Seafood Shell Fish (shrimp, crayfish, lobster, crab) Premarin weight gain Plan of Treatment Planned Activity Comments Planned Date Planned Time Plan/Goal Comprehensive metabolic panel 01/25/2016 12:00 AM Total iron measurement 01/25/2016 12:00 AM Serum or plasma ferritin measurement 01/25/2016 12:00 AM Flu Vaccine, 3yrs & older, Quadrivalent (multi-dose vial) - [facility] [place] Medicare 02/16/2016 12:00 AM Medications Active Name Start Date [...] (50 mcg) by oral route once daily clobetasol-emollient 0.05 % topical foam 01/25/2016 05/24/2016 apply to the affected area(s) by topical route 2 times per day in the morning and evening for 30 days pantoprazole 40 mg oral tablet,delayed release (DR/EC) 02/07/2016 TAKE ONE TABLET BY MOUTH DAILY Name Start Date Expiration Date SIG Comments Dyazide 37.5-25 mg oral capsule 06/02/2015 06/12/2015 take 1 capsule by oral route once daily for 10 days pantoprazole 40 mg oral tablet,delayed release (DR/EC) 08/13/2015 2016 take 1 tablet by oral route daily for 30 days Discontinued Name Start Date Discontinued Date [...] HC BMI BSA BMI Percentile O2 Sat(%) 02/16/2016 2:38:00 PM 122 mmHg 74 mmHg [...] 12:00 AM Kenalog, Per 10 Mg [facility]#[id number] Reviewed 02/16/2016 12:00 AM [facility] [place] MEDICARE - flu vaccine administration Reviewed Results Summary Data and Description Results [...] 358.0 pg/mLANA Direct Negative History Of Immunizations Not available. History of [...] 4:34PM Flu Vaccine Feb 16 2016 3:51PM Payers Insurance Name Company Name Plan Name Plan Number Policy Number Policy Group Number Start Date [facility] [id number] N/A History of Encounters Visit Date Visit Type Provider 02/16/2016 Office visit Iesha De Luna MD 01/25/2016 Office visit Iesha De Luna MD 09/01/2015 Office visit Iesha De Luna MD 07/30/2015 Office visit Iesha De Luna MD 07/06/2015 Office visit Tanvir Ayala MD 06/08/2015 Office visit Tanvir Ayala MD 06/02/2015 Office visit Tanvir Ayala MD 05/26/2015 Hospital Tanvir Ayala MD 05/25/2015 Hospital Tanvir Ayala MD 05/22/2015 Hospital Tanvir Ayala MD 05/14/2015 [facility] Tanvir Ayala MD 05/13/2015 [facility] Tanvir Ayala MD 05/10/2015 Office visit Tanvir Ayala MD
--- OUTSIDE RECORDS SUMMARY | 2018-09-07 12:59 | XMS REPORT ---
Author Author Iesha De Luna Organization [facility] Address [address] [place], [place] [address] Care Team Providers Care Pad Machine Feeder Name Role Phone Iesha De Luna PCP Allergies and Adverse Reactions Name Reaction Notes [place] Contrast media allergy nausea, rash Seafood Shell [...] 12:00 AM EDE W/REFLEX 01/25/2016 12:00 AM Injection, Subcutaneous/IM 01/25/2016 12:00 AM Medications Active Name Start [...] Right leg pain Jan 25 2016 4:34PM Payers Insurance Name Company Name Plan Name Plan Number Policy Number Policy Group Number Start Date [facility] [id number] N/A History of Encounters Visit Date Visit Type Provider 01/25/2016 Office visit Iesha De Luna MD 09/01/2015 Office visit Iesha De Luna MD 07/30/2015 Office visit Iesha De Luna MD 07/06/2015 Office visit Tanvir Ayala MD 06/08/2015 Office visit Tanvir Ayala MD 06/02/2015 Office visit Tanvir Ayala MD 05/26/2015 [facility] Tanvir Ayala MD 05/25/2015 [facility] Tanvir Ayala MD 05/22/2015 [facility] Tanvir Ayala MD 05/14/2015 [facility] Tanvir Ayala MD 05/13/2015 [facility] Tanvir Ayala MD 05/10/2015 Office visit Tanvir Ayala MD
--- OUTSIDE RECORDS SUMMARY | 2018-09-07 13:00 | XMS REPORT ---
Author Author Migration, Doctor Organization [facility] Address Unknown Phone Unavailable Care Team Providers Care Group Cio Name Role Phone Migration, Doctor Unavailable Unavailable PROBLEMS Type Condition ICD9-CM Code MXK16-AS Code Onset Dates Condition Status SNOMED Code Problem Anxiety F41.9 Active 96164507 Problem Rhinitis, unspecified type J31.0 Active 94277498 Problem Anemia, unspecified type D64.9 Active 362482947 Problem Primary osteoarthritis of right knee M17.11 Active 846670454 Problem Gastroesophageal reflux disease without esophagitis K21.9 Active 543917374 Problem Acquired hypothyroidism E03.9 Active 931942583 ALLERGIES No Information ENCOUNTERS Encounter Location Date Diagnosis [place] [id number] [place] [address] Jun, Gastroesophageal reflux disease without esophagitis K21.9 [place] [id number] [place] [address] May, [place] [id number] [place] [address] May, Viral upper respiratory tract infection J06.9 ; Bronchitis J40 and Morbid obesity E66.01 [place] [id number] [place] [address] Apr, Vitamin B12 deficiency E53.8 [place] [id number] [place] [address] Apr, [facility] [id number] [place] [id number] Apr, [place] [id number] [place] [address] Apr, Gastroesophageal reflux disease without esophagitis K21.9 ; Acquired hypothyroidism E03.9 ; Anemia, unspecified type D64.9 ; Primary osteoarthritis of right knee M17.11 ; Anxiety F41.9 and BMI 45.0-49.9, adult Z68.[address] [place] [id number] Mar, Anxiety F41.9 [place] [id number] [place] [id number] Aug, Gastroesophageal reflux disease without esophagitis K21.9 ; Anxiety F41.9 ; Acquired hypothyroidism E03.9 ; BMI 40.0-44.9, adult Z68.41 and Screening for heart disease Z13.6 [place] [id number] [place] [address] [id number] Feb, Anxiety F41.[address] [id number] Feb, Medicare annual wellness visit, subsequent Z00.00 ; BMI 40.0-44.9, adult Z68.41 and Encounter for immunization Z23 [place] [id number] [place] [address] [id number] Feb, Anxiety F41.9 ; Acquired hypothyroidism E03.9 and BMI 40.0-44.9, adult Z68.41 [place] [id number] [place] [id number] Jan, Acquired hypothyroidism E03.9 [place] [id number] [place] [address] [id number] Jan, Colon cancer screening Z12.11 [address] [place] [id number] Dec, Anxiety F41.9 ; Acquired hypothyroidism E03.9 and Encounter for immunization Z23 [place] [id number] [place] [address] [id number] Oct, Anxiety F41.9 and Acquired hypothyroidism E03.9 [place] [id number] [place] [address] [id number] May, Anxiety F41.9 and Rhinitis, unspecified type J31.0 [address] [place] [address] [id number] Apr, [place] [id number] [id number] Mar, [facility] [id number][place] [id number] Mar, [facility] [id number], [place] [phone] Nov, [facility] [id number], [place] [id number] Sep, [facility] [id number] [place] [id number] Sep, Vitamin B12 deficiency E53.8 [facility] [id number], [place] [id number] Sep, [facility] [id number] [place] [id number] July, Anemia, unspecified type D64.9 ; Acquired hypothyroidism E03.9 ; Primary osteoarthritis of right knee M17.11 ; Anxiety F41.9 and Gastroesophageal reflux disease without esophagitis K21.9 [facility] [id number], [place] [id number] July, [facility] [id number], [place] [id number] Apr, Other specified abdominal hernia without obstruction or gangrene K45.8 [facility] [id number], [place] [id number] Apr, [place] [id number], [place] [id number] Apr, [facility] [id number][place] [id number] Apr, Primary osteoarthritis of right knee M17.11 ; Poor diet E63.9 ; Morbid obesity due to excess calories E66.01 and Vitamin B12 deficiency E53.8 [facility] [id number], [place] [id number] Dec, Upper respiratory tract infection, unspecified upper respiratory infection J06.9 [facility] [id number], [place] [id number] Dec, Arthritis M19.90 and Hypothyroidism, unspecified E03.9 [facility] [place] [address] [id number], [place] [id number] Nov, [facility] [place] [facility] [address] [facility] [id number] [place] [address] Jun, [facility] [place] [facility] [address] [facility] [id number], [place] [address] Jun, [facility] [place] [address] [facility] [id number][place] [id number] Apr, [facility] [place] [facility] [address] [facility] [id number] [place] [address] Apr, [facility] [place] [facility] [address] [place] [address] Mar, [facility] [place] [address] [facility] [id number], [place] [id number] Mar, [facility] [place] [facility] [address]00565100[place], [place] [address] Mar, [facility] [place] [facility] [address]00565100[place], [place] [address] Feb, [facility] [place] [address] [facility] [id number], [place] [id number] Feb, [facility] [place] [facility] [address] [id number], [place] [address] Jan, [facility] [place] [address] [facility] [id number], [place] [id number] Jan, [facility] [place] [facility] [address] [id number], [place] [address] Dec, [facility] [place] [address] [id number], [place] [id number] 16 Dec, 2013 [facility] [place] [address] [facility] [id number], [place] [id number] Dec, [facility] [place] [facility] [address] [id number], [place] [address] Dec, [facility] [place] [address] [facility] [id number], [place] [id number] Nov, [facility] [place] [facility] [address] [id number] [place] [address] Nov, [facility] [place] [address] [id number] [place] [id number] Sep, [facility] [place] [facility] [address] [id number] [place] [address] Sep, [facility] [place] [address] [id number] [place] [id number] Sep, [facility] [place] [facility] [address] [id number] [place] [address] Sep, [facility] [place] [facility] [address] [facility] [id number] [place] [address] Sep, [facility] [place] [facility] [address] [facility] [id number] [place] [address] Aug, [facility] [place] [facility] [address] [facility] [id number] [place] [address] Aug, [facility] [place] [address] [id number] [place] [id number] Aug, [facility] [place] [address] [id number] [place] [address] July, [facility] [place] [facility] [address] [facility] [id number] [place] [address] July, [facility] [place] [address] [id number] [place] [id number] Jun, [facility] [place] [facility] [address] [id number] [place] [address] Jun, [facility] [place] [address] [id number] [place] [id number] Jun, [facility] [place] [facility] [address] [facility] [id number] [place] [address] Jun, [facility] [place] [address] [id number] [place] [address] Mar, [facility] [place] [facility] [address] [facility] [id number], [place] [address] Mar, [facility] [place] [facility] [address] [id number], [place] [address] Mar, [facility] [place] [address] [id number], [place] [id number] Feb, [facility] [place] [facility] [address] [facility] [id number], [place] [address] Feb, [facility] [place] [address] [id number], [place] [id number] Feb, [facility] [place] [facility] [address] [facility] [id number], [place] [address] Feb, [facility] [place] [facility] [address] [facility] [id number], [place] [address] Feb, [facility] [place] [address] [id number], [place] [id number] Dec, [facility] [place] [facility] [address] [facility] [id number], [place] [address] Dec, [facility] [place] [address] [id number], [place] [address] Dec, [facility] [place] [facility] [address] [facility] [id number], [place] [address] Dec, [facility] [place] [address] [id number], [place] [id number] Dec, [facility] [place] [address] [id number], [place] [address] Dec, [facility] [place] [facility] [address] [facility] [id number], [place] [address] Dec, [facility] [place] [facility] [address] [facility] [id number], [place] [address] Dec, [facility] [place] [address] [id number], [place] [id number] Nov, [facility] [place] [address] [id number], [place] [id number] Nov, [facility] [place] [address] [id number] [place] [id number] Nov, [facility] [place] [address] [id number] [place] [address] Nov, [facility] [place] [address] [id number] [place] [id number] Oct, [facility] [place] [address] [id number] [place] [id number] Oct, [facility] [place] [address] [id number] [place] [id number] Oct, [facility] [address] [facility] [id number] [place] [address] Sep, [facility] [address] [facility] [id number] [place] [address] Sep, [facility] [place] [address] [id number] [place] [id number] Sep, [facility] [place] [address] [id number] [place] [address] Sep, [facility] [address] [facility] [id number] [place] [address] Aug, [facility] [place] [address] [id number] [place] [address] Aug, [facility] [place] [address] [id number] [place] [id number] July, [facility] [place] [address] [id number] [place] [id number] Jun, [facility] [place] [address] [id number] [place] [address] Jun, [facility] [place] [address] [id number] [place] [address] May, [facility] [place] [address] [id number] [place] [id number] May, [facility] [place] [address] [id number] [place] [id number] May, [facility] [place] [address] [id number] [place] [address] May, [facility] [place] [address] [id number] [place] [address] May, [facility] [place] [address] [id number] [place] [id number] May, [facility] [place] [facility] [address] [facility] [id number], [place] [address] Apr, [facility] [place] [address] [id number] [place] [id number] Apr, [facility] [place] [address] [id number] [place] [id number] Apr, [facility] [place] [facility] [address] [facility] [id number], [place] [address] Apr, [facility] [place] [facility] [address] [facility] [id number] [place] [address] Apr, [facility] [place] [id number], [place] [address] Apr, [facility] [place] [address] [id number], [place] [id number] Jan, [facility] [place] [facility] [address] [facility] [id number], [place] [address] Jan, [facility] [place] [address] [facility] [id number], [place] [id number] Jan, [facility] [place] [facility] [address] [id number], [place] [address] Jan, [facility] [place] [address] [id number], [place] [address] Dec, [facility] [place] [facility] [address] [facility] [id number], [place] [address] Dec, [facility] [place] [address] [id number], [place] [id number] Nov, [facility] [place] [address] [id number], [place] [id number] Oct, [facility] [place] [address] [id number], [place] [id number] Oct, [facility] [place] [address] [id number], [place] [id number] Oct, [facility] [address] [id number], [place] [address] Sep, [facility] [address] [id number], [place] [id number] July, [facility] [address] [id number], [place] [id number] Jun, [facility] [address] [id number], [place] [address] Mar, [facility] [address]00565100[place], [place] [address] Feb, [facility] [id number] [place] [address] Feb, [facility] [id number] [place] [address] Jan, [facility] [id number] [place] [address] Jan, [facility] [address]00565100[place], [place] [address] Dec, [facility] [address] [id number], [place] [address] Dec, [facility] [address]00565100[place], [place] [address] May, [facility] [address]00565100[place], [place] [address] Apr, IMMUNIZATIONS No Known Immunizations SOCIAL HISTORY Never Assessed REASON FOR VISIT [facility] PLAN OF CARE VITAL SIGNS MEDICATIONS Unknown Medications RESULTS No Results PROCEDURES No Known procedures INSTRUCTIONS MEDICATIONS ADMINISTERED No Known Medications MEDICAL (GENERAL) HISTORY Type Description Date Medical History anxiety Medical History osteoarthritis right knee Medical History vitamin B12 deficiency Medical History obesity Surgical History cholecystectomy 1988 Surgical History tubal ligation 1988 Surgical History cataract-lens implants bilateral Surgical History gastric bypass Yumiko-en-y procedure 2002 Surgical History EGD negative 12/2010 Surgical History colonoscopy negative 12/2010 Surgical History multiple hernia repairs Surgical History hernia in lower stomach x 2--first hernia ruptured and to have blood transfusions and then a second surgery to correct hernia 05/25 Hospitalization History GI bleed 05/2012 Hospitalization History anemia 12/2010 Hospitalization History [facility]--received blood transfusions due to ruptured hernia 05/25
--- OUTSIDE RECORDS SUMMARY | 2018-09-07 13:00 | XMS REPORT ---
Author Author Iesha De Luna Organization [facility] Address [address] [place], [place] [address] Care Team Providers Care Video Rental Clerk Name Role Phone Iesha De Luna PCP Iesha De Luna PreferredProvider Allergies and Adverse Reactions Name Reaction Notes [place] Contrast media allergy nausea, rash Seafood Shell [...] 02/07/2016 TAKE ONE TABLET BY MOUTH DAILY fluocinolone acetonide oil 0.01 % otic drops 06/23/2016 06/30/2016 instill 5 drops into right ear by otic route 2 times per day for 7 days Name Start Date Expiration Date SIG [...] the morning and evening for 30 days Discontinued Name Start Date [...] 01/25/2016 12:00 AM Kenalog, Per 10 Mg [facility]#0439-5506-04 Reviewed 02/16/2016 12:00 AM [facility] MEDICARE - flu vaccine administration Reviewed 02/16/2016 [...] CVX Influenza 02/16/2016 sanofi pasteur PMC Fluzone [id number] Intramuscular Right Deltoid 02/16/2016 11/16/2014 141 History [...] 2016 2:40PM Osteoarthritis Feb 16 2016 2:40PM Payers Insurance Name Company Name Plan Name Plan Number Policy Number Policy Group Number Start Date [facility] [id number] N/A History of Encounters Visit Date Visit [...] MD 05/26/2015 Hospital Tanvir Ayala MD 05/25/2015 [facility] Tanvir Ayala MD 05/22/2015 Hospital Tanvir Ayala MD 05/14/2015 [facility] Tanvir Ayala MD 05/13/2015 [facility] Tanvir Ayala MD 05/10/2015 Office visit Tanvir Ayala MD
--- OUTSIDE RECORDS SUMMARY | 2018-09-07 13:01 | XMS REPORT ---
Author Author Migration, Doctor Organization [facility] Address Unknown Phone Unavailable Care Team Providers Care Tree Girdler Name Role Phone Migration, Doctor Unavailable Unavailable PROBLEMS Type Condition ICD9-CM Code ZKA31-KK Code Onset Dates Condition Status SNOMED Code Problem Anxiety F41.9 Active 34242172 Problem Rhinitis, unspecified type J31.0 Active 69384187 Problem Anemia, unspecified type D64.9 Active 863878957 Problem Primary osteoarthritis of right knee M17.11 Active 668954947 Problem Gastroesophageal reflux disease without esophagitis K21.9 Active 248009326 Problem Acquired hypothyroidism E03.9 Active 112938426 ALLERGIES No Information ENCOUNTERS Encounter Location Date Diagnosis [place] [id number] [place] [address] Jun, Gastroesophageal reflux disease without esophagitis K21.9 [place] [address] [place] [id number] [place] [address] May, [place] [address] [id number] [place] [address] May, Viral upper respiratory tract infection J06.9 ; Bronchitis J40 and Morbid obesity E66.01 [place] [address] [place] [id number] [place] [address] Apr, Vitamin B12 deficiency E53.8 [place] [address] [place] [id number] [place] [address] Apr, [facility] [id number] [place] [id number] Apr, [place] [address] [id number] [place] [address] Apr, Gastroesophageal reflux disease without esophagitis K21.9 ; Acquired hypothyroidism E03.9 ; Anemia, unspecified type D64.9 ; Primary osteoarthritis of right knee M17.11 ; Anxiety F41.9 and BMI 45.0-49.9, adult Z68.[address] [place] [address] [id number] Mar, Anxiety F41.9 [place] [id number] [place] [address] [id number] Aug, Gastroesophageal reflux disease without esophagitis K21.9 ; Anxiety F41.9 ; Acquired hypothyroidism E03.9 ; BMI 40.0-44.9, adult Z68.41 and Screening for heart disease Z13.6 [place] [id number] [place] [address] [id number] Feb, Anxiety F41.[address] [id number] Feb, Medicare annual wellness visit, subsequent Z00.00 ; BMI 40.0-44.9, adult Z68.41 and Encounter for immunization Z23 [place] [id number] [place] [address] [id number] Feb, Anxiety F41.9 ; Acquired hypothyroidism E03.9 and BMI 40.0-44.9, adult Z68.41 [place] [id number] [place] [address] [id number] Jan, Acquired hypothyroidism E03.9 [place] [id number] [place] [address] [id number] Jan, Colon cancer screening Z12.11 [address] [place] [address] [id number] Dec, Anxiety F41.9 ; Acquired hypothyroidism E03.9 and Encounter for immunization Z23 [place] [id number] [place] [address] [id number] Oct, Anxiety F41.9 and Acquired hypothyroidism E03.9 [place] [id number] [place] [address] [id number] May, Anxiety F41.9 and Rhinitis, unspecified type J31.0 [address] [place] [address] [id number] Apr, [place] [id number] [id number] Mar, [facility] [id number], [place] [id number] Mar, [facility] [id number], [place] [id number] Nov, [facility] [id number], [place] [id number] Sep, [facility] [id number] [place] [address] [id number] Sep, Vitamin B12 deficiency E53.8 [facility] [id number], [place] [id number] Sep, [facility] [address] [place] [id number] [place] [address] [id number] July, Anemia, unspecified type D64.9 ; Acquired hypothyroidism E03.9 ; Primary osteoarthritis of right knee M17.11 ; Anxiety F41.9 and Gastroesophageal reflux disease without esophagitis K21.9 [facility] [id number], [place] [id number] July, [facility] [id number], [place] [id number] Apr, Other specified abdominal hernia without obstruction or gangrene K45.8 [facility] [id number], [place] [id number] Apr, [place] [id number], [place] [id number] Apr, [facility] [id number], [place] [id number] Apr, Primary osteoarthritis of right knee M17.11 ; Poor diet E63.9 ; Morbid obesity due to excess calories E66.01 and Vitamin B12 deficiency E53.8 [facility] [id number], [place] [id number] Dec, Upper respiratory tract infection, unspecified upper respiratory infection J06.9 [facility] [id number], [place] [id number] Dec, Arthritis M19.90 and Hypothyroidism, unspecified E03.[address] [facility] [place] [address] [id number], [place] [id number] Nov, [facility] [place] [facility] [address] [facility] [id number] [place] [address] Jun, [facility] [place] [facility] [address] [facility] [id number][place] [address] Jun, [facility] [place] [address] [facility] [id number], [place] [id number] Apr, [facility] [place] [facility] [address] [facility] [id number] [place] [address] Apr, [facility] [place] [facility] [address] [place] [address] Mar, [facility] [place] [address] [facility] [id number], [place] [id number] Mar, [facility] [place] [facility] [address]00565100[place] [address] Mar, [facility] [place] [facility] [address]00565100[place], [place] [address] Feb, [facility] [place] [address] [facility] [id number], [place] [id number] Feb, [facility] [place] [facility] [address] [place] [address] [id number] [address] Jan, [facility] [place] [address] [facility] [id number], [place] [id number] Jan, [facility] [place] [facility] [address] [place] [address] [id number] [address] Dec, [facility] [place] [address] [id number], [place] [id number] 16 Dec, 2013 [facility] [place] [address] [facility] [id number], [place] [id number] Dec, [facility] [place] [facility] [address] [id number] [address] Dec, [facility] [place] [address] [facility] [id number], [place] [id number] Nov, [facility] [place] [facility] [address] [id number] [place] [address] Nov, [facility] [place] [address] [id number] [place] [id number] Sep, [facility] [place] [facility] [address] [id number] [place] [address] Sep, [facility] [place] [address] [id number] [place] [address] Sep, [facility] [place] [facility] [address] [id number] [place] [address] Sep, [facility] [place] [facility] [address] [facility] [id number] [place] [address] Sep, [facility] [place] [facility] [address] [facility] [id number] [place] [address] Aug, [facility] [place] [facility] [address] [facility] [id number] [place] [address] Aug, [facility] [place] [address] [id number] [place] [id number] Aug, [facility] [place] [address] [id number] [place] [address]40[address] July, [facility] [place] [facility] [address] [facility] [id number] [place] [address] July, [facility] [place] [address] [id number] [place] [id number] Jun, [facility] [place] [facility] [address] [id number] [place] [address] Jun, [facility] [place] [address] [id number] [place] [id number] Jun, [facility] [place] [facility] [address] [facility] [id number] [place] [address] Jun, [facility] [place] [address] [id number] [place] [id number] Mar, [facility] [place] [facility] [address] [facility] [id number], [place] [address] Mar, [facility] [place] [facility] [address] [id number][place] [address] Mar, [facility] [place] [address] [id number], [place] [id number] Feb, [facility] [place] [facility] [address] [facility] [id number], [place] [address] Feb, [facility] [place] [address] [id number], [place] 576247117 Feb, [facility] [place] [facility] [address] [facility] [id number][place] [address] Feb, [facility] [place] [facility] [address] [facility] [id number][place] [address] Feb, [facility] [place] [address] [id number], [place] [id number] Dec, [facility] [place] [facility] [address] [facility] [id number], [place] [address] Dec, [facility] [place] [address] [id number], [place] 099912466 Dec, [facility] [place] [facility] [address] [facility] [id number][place] [address] Dec, [facility] [place] [address] [id number], [place] 629564402 Dec, [facility] [place] [address] [id number], [place] 130049635 Dec, [facility] [place] [facility] [address] [facility] [id number][place] [address] Dec, [facility] [place] [facility] [address] [facility] [id number], [place] [address] Dec, [facility] [place] [address] [id number], [place] 88[address]2348 Nov, [facility] [place] [address] [id number], [place] 996367166 Nov, [facility] [place] [address] [id number] [place] 99[address] Nov, [facility] [place] [address] [id number] [place] 0[address] Nov, [facility] [place] [address] [id number] [place] 16[address] Oct, [facility] [place] [address] [id number] [place] 234[address] Oct, [facility] [place] [address] [id number] [place] [address]497[address] Oct, [facility] [address] [facility] [id number] [place] [address] Sep, [facility] [address] [facility] [id number] [place] [address] Sep, [facility] [place] [address] [id number] [place] 2106[address] Sep, [facility] [place] [address] [id number] [place] [address] Sep, [facility] [address] [facility] [id number] [place] [address] Aug, [facility] [place] [address] [id number] [place] 8494[address] Aug, [facility] [place] [address] [id number] [place] 50[address]37[address] July, [facility] [place] [address] [id number] [place] 11339[address] Jun, [facility] [place] [address] [id number] [place] 9742948[address] Jun, [facility] [place] [address] [id number] [place] 993[address]80 May, [facility] [place] [address] [id number] [place] 29[address] May, [facility] [place] [address] [id number] [place] 635829891 May, [facility] [place] [address] [id number] [place] [address] May, [facility] [place] [address] [id number] [place] [id number] May, [facility] [place] [address] [id number] [place] 8768788[address] May, [facility] [place] [facility] [address] [facility] [id number], [place] [address] Apr, [facility] [place] [address] [id number] [place] 2[address]1967[address] Apr, [facility] [place] [address] [id number] [place] 317716488 Apr, [facility] [place] [facility] [address] [facility] [id number], [place] [address] Apr, [facility] [place] [facility] [address] [facility] [id number] [place] [address] Apr, [facility] [place] [id number], [place] 693423509 Apr, [facility] [place] [address] [id number], [place] 175861311 Jan, [facility] [place] [facility] [address] [facility] [id number], [place] [address] Jan, [facility] [place] [address] [facility] [id number], [place] [id number] Jan, [facility] [place] [facility] [address] [place] [id number] [address] Jan, [facility] [place] [address] [id number], [place] [id number] Dec, [facility] [place] [facility] [address] [facility] [id number][place] [address] Dec, [facility] [place] [address] [id number], [place] 032786727 Nov, [facility] [place] [address] [id number], [place] [id number] Oct, [facility] [place] [address] [id number], [place] [id number] Oct, [facility] [place] [address] [id number], [place] 190265401 Oct, [facility] [address] [place] [address] [id number], [place] [address]28446161 Sep, [facility] [address] [place] [address] [id number], [place] 588870992 July, [facility] [address] [place] [address] [id number], [place] 940805459 Jun, [facility] [address] [place] [id number], [place] 7153[address]486 Mar, [facility] [place] [facility] [address]00565100[place], [place] [address] Feb, [facility] [place] [facility] [address] [address] [id number] [place] [address] Feb, [facility] [place] [facility] [id number] [place] [address] Jan, [facility] [place] [facility] [id number] [place] [address] Jan, [facility] [place] [facility] [address]00565100[place], [place] [address] Dec, [facility] [place] [facility] [address] [id number], [place] [address] Dec, [facility] [place] [facility] [address]005[address]100[place] [address] May, [facility] [place] [facility] [address]005[address]100[place], [place] [address] Apr, IMMUNIZATIONS No Known Immunizations SOCIAL HISTORY Never Assessed REASON FOR VISIT [facility] [place] VITAL SIGNS MEDICATIONS Unknown [...]
--- OUTSIDE RECORDS SUMMARY | 2018-09-07 13:01 | XMS REPORT ---
Author Author Migration, Doctor Organization [facility] Address Unknown Phone Unavailable Care Team Providers Care Architectural Practice Manager Name Role Phone Migration, Doctor Unavailable Unavailable PROBLEMS Type Condition ICD9-CM Code YZB97-CM Code Onset Dates Condition Status SNOMED Code Problem Anxiety F41.9 Active 55845429 Problem Rhinitis, unspecified type J31.0 Active 68465709 Problem Anemia, unspecified type D64.9 Active 376121100 Problem Primary osteoarthritis of right knee M17.11 Active 801220123 Problem Gastroesophageal reflux disease without esophagitis K21.9 Active 283933317 Problem Acquired hypothyroidism E03.9 Active 439257902 ALLERGIES No Information ENCOUNTERS Encounter Location Date Diagnosis [place] [id number] [place] [id number] Jun, Gastroesophageal reflux disease without esophagitis K21.9 [place] [address] [id number] [place] [phone] May, [place] [id number] [place] [address] May, Viral upper respiratory tract infection J06.9 ; Bronchitis J40 and Morbid obesity E66.01 [place] [id number] [place] [address] Apr, Vitamin B12 deficiency E53.8 [place] [id number] [place] [address] Apr, [facility] [id number] [place] [id number] Apr, [place] [id number] [place] [address] Apr, Gastroesophageal reflux disease without esophagitis K21.9 ; Acquired hypothyroidism E03.9 ; Anemia, unspecified type D64.9 ; Primary osteoarthritis of right knee M17.11 ; Anxiety F41.9 and BMI 45.0-49.9, adult Z68.[address] [place] [address] [id number] Mar, Anxiety F41.9 [place] [id number] [place] [address] [id number] Aug, Gastroesophageal reflux disease without esophagitis K21.9 ; Anxiety F41.9 ; Acquired hypothyroidism E03.9 ; BMI 40.0-44.9, adult Z68.41 and Screening for heart disease Z13.6 [place] [id number] [place] [address] [id number] Feb, Anxiety F41.[address] [id number] Feb, Medicare annual wellness visit, subsequent Z00.00 ; BMI 40.0-44.9, adult Z68.41 and Encounter for immunization Z23 [place] [id number] [place] [address] [id number] Feb, Anxiety F41.9 ; Acquired hypothyroidism E03.9 and BMI 40.0-44.9, adult Z68.41 [place] [id number] [place] [address] [id number] Jan, Acquired hypothyroidism E03.9 [place] [id number] [place] [address] [id number] Jan, Colon cancer screening Z12.[address] [place] [address] [id number] Dec, Anxiety F41.9 ; Acquired hypothyroidism E03.9 and Encounter for immunization Z23 [place] [id number] [place] [address] [id number] Oct, Anxiety F41.9 and Acquired hypothyroidism E03.9 [place] [id number] [place] [address] [id number] May, Anxiety F41.9 and Rhinitis, unspecified type J31.[address] [place] [address] [id number] Apr, [place] [id number] [id number] Mar, [facility] [id number] [id number] Mar, [facility] [id number], [place] [id number] Nov, [facility] [id number], [place] [id number] Sep, [facility] [id number] [place] [address] [id number] Sep, Vitamin B12 deficiency E53.8 [facility] [id number], [place] [id number] Sep, [facility] [address] [place] [id number] [place] [address] [id number] July, Anemia, unspecified type D64.9 ; Acquired hypothyroidism E03.9 ; Primary osteoarthritis of right knee M17.11 ; Anxiety F41.9 and Gastroesophageal reflux disease without esophagitis K21.9 [facility] [id number], [place] [id number] July, [facility] [id number], [place] [id number] Apr, Other specified abdominal hernia without obstruction or gangrene K45.8 [facility] [id number], [place] [id number] Apr, [place] [id number], [place] [id number] Apr, [facility] [id number][place] [id number] Apr, Primary osteoarthritis of right knee M17.11 ; Poor diet E63.9 ; Morbid obesity due to excess calories E66.01 and Vitamin B12 deficiency E53.8 [facility] [id number], [place] [id number] Dec, Upper respiratory tract infection, unspecified upper respiratory infection J06.9 [facility] [id number], [place] [id number] Dec, Arthritis M19.90 and Hypothyroidism, unspecified E03.9 [facility] [place] [address] [id number][place] [id number] Nov, [facility] [place] [facility] [address] [facility] [id number] [place] [address] Jun, [facility] [place] [facility] [address] [facility] [id number], [place] [address] Jun, [facility] [place] [address] [facility] [id number], [place] [id number] Apr, [facility] [place] [facility] [address] [facility] [id number] [place] [address] Apr, [facility] [place] [facility] [address] [place] [address] Mar, [facility] [place] [address] [facility] [id number], [place] [id number] Mar, [facility] [place] [facility] [address]00565100[place], [place] [address] Mar, [facility] [place] [facility] [address]00565100[place], [place] [address] Feb, [facility] [place] [address] [facility] [id number], [place] [id number] Feb, [facility] [place] [facility] [address] [place] [address] [id number], [place] [address] Jan, [facility] [place] [address] [facility] [id number], [place] [id number] Jan, [facility] [place] [facility] [address] [id number], [place] [address] Dec, [facility] [place] [address] [id number], [place] [id number] 16 Dec, 2013 [facility] [place] [address] [facility] [id number], [place] [id number] Dec, [facility] [place] [facility] [address] [id number], [place] [address] Dec, [facility] [place] [address] [facility] [id number], [place] [address] Nov, [facility] [place] [facility] [address] [id number] [place] [address] Nov, [facility] [place] [address] [id number] [place] [id number] Sep, [facility] [place] [facility] [address] [id number] [place] [address] Sep, [facility] [place] [address] [id number] [place] [id number] Sep, [facility] [place] [facility] [address] [id number] [place] [address] Sep, [facility] [place] [facility] [address] [facility] [id number] [place] [address] Sep, [facility] [place] [facility] [address] [facility] [id number] [place] [address] Aug, [facility] [place] [facility] [address] [facility] [id number] [place] [address] Aug, [facility] [place] [address] [id number] [place] [id number] Aug, [facility] [place] [address] [id number] [place] [id number] July, [facility] [place] [facility] [address] [facility] [id number] [place] [address] July, [facility] [address] [id number] [place] [id number] Jun, [facility] [place] [facility] [address] [id number] [place] [address] Jun, [facility] [place] [address] [id number] [place] [id number] Jun, [facility] [place] [facility] [address] [facility] [id number] [place] [address] Jun, [facility] [place] [address] [id number] [place] [id number] Mar, [facility] [place] [facility] [address] [facility] [id number], [place] [address] Mar, [facility] [place] [facility] [address] [id number], [place] [address] Mar, [facility] [place] [address] [id number], [place] [id number] Feb, [facility] [place] [facility] [address] [facility] [id number], [place] [address] Feb, [facility] [place] [address] [id number], [place] [id number] Feb, [facility] [place] [facility] [address] [facility] [id number], [place] [address] Feb, [facility] [place] [facility] [address] [facility] [id number], [place] [address] Feb, [facility] [address] [id number], [place] [id number] Dec, [facility] [place] [facility] [address] [facility] [id number], [place] [address] Dec, [facility] [place] [address] [id number], [place] [id number] Dec, [facility] [place] [facility] [address] [facility] [id number], [place] [address] Dec, [facility] [place] [address] [id number], [place] [id number] Dec, [facility] [address] [id number], [place] 369068297 Dec, [facility] [place] [facility] [address] [facility] [id number], [place] [address] Dec, [facility] [place] [facility] [address] [facility] [id number], [place] [address] Dec, [facility] [address] [id number], [place] [id number] Nov, [facility] [place] [address] [id number], [place] 925085682 Nov, [facility] [place] [address] [id number] [place] 1996[address]781 Nov, [facility] [place] [address] [id number] [place] 833[address] Nov, [facility] [place] [address] [id number] [place] [id number] Oct, [facility] [place] [address] [id number] [place] [id number] Oct, [facility] [place] [address] [id number] [place] [id number] Oct, [facility] [address] [facility] [id number] [place] [address] Sep, [facility] [address] [facility] [id number] [place] [address] Sep, [facility] [place] [address] [id number] [place] [id number] Sep, [facility] [place] [address] [id number] [place] 864962044 Sep, [facility] [address] [facility] [id number] [place] [address] Aug, [facility] [place] [address] [id number] [place] [id number] Aug, [facility] [place] [address] [id number] [place] 08227[address] July, [facility] [place] [address] [id number] [place] [id number] Jun, [facility] [place] [address] [id number] [place] 114890077 Jun, [facility] [place] [address] [id number] [place] 511154045 May, [facility] [place] [address] [id number] [place] [id number] May, [facility] [place] [address] [id number] [place] 047250976 May, [facility] [place] [address] [id number] [place] 0858050[address] May, [facility] [place] [address] [id number] [place] 616052741 May, [facility] [place] [address] [id number] [place] 770450507 May, [facility] [place] [facility] [address] [facility] [id number], [place] [address] Apr, [facility] [place] [address] [id number] [place] [id number] Apr, [facility] [place] [address] [id number] [place] [id number] Apr, [facility] [place] [facility] [address] [facility] [id number], [place] [address] Apr, [facility] [place] [facility] [address] [facility] [id number] [place] [address] Apr, [facility] [place] [id number], [place] [id number] Apr, [facility] [place] [address] [id number], [place] [id number] Jan, [facility] [place] [facility] [address] [facility] [id number], [place] [address] Jan, [facility] [place] [address] [facility] [id number], [place] [id number] Jan, [facility] [place] [facility] [address] [address] [id number], [place] [address] Jan, [facility] [place] [address] [id number], [place] [id number] Dec, [facility] [place] [facility] [address] [facility] [id number], [place] [address] Dec, [facility] [place] [address] [id number], [place] 826869160 Nov, [facility] [address] [id number], [place] [id number] Oct, [facility] [address] [id number], [place] [id number] Oct, [facility] [place] [address] [id number], [place] [id number] Oct, [facility] [address] [place] [address] [id number], [place] [address] Sep, [facility] [address] [place] [address] [id number], [place] 856[address]1656 July, [facility] [address] [place] [address] [id number], [place] [id number] Jun, [facility] [address] [place] [id number], [place] [id number] Mar, [facility] [address]00565100[place], [place] [address] Feb, [facility] [id number] [place] [address] Feb, [facility] [id number] [place] [address] Jan, [facility] [id number] [place] [address] Jan, [facility] [address]00565100[place], [place] [address] Dec, [facility] [address] [id number], [place] [address] Dec, [facility] [address]00565100[place], [place] [address] May, [facility] [address]00565100[place], [place] [address] Apr, IMMUNIZATIONS No Known Immunizations SOCIAL HISTORY Never Assessed REASON FOR VISIT [facility] [place] CARE VITAL SIGNS MEDICATIONS Unknown [...]
--- OUTSIDE RECORDS SUMMARY | 2018-09-07 13:02 | XMS REPORT ---
Author Author Migration, Doctor Organization [facility] Address Unknown Phone Unavailable Care Team Providers Care Senior Business Consultant Name Role Phone Migration, Doctor Unavailable Unavailable PROBLEMS Type Condition ICD9-CM Code YRB12-MC Code Onset Dates Condition Status SNOMED Code Problem Anxiety F41.9 Active 39136853 Problem Rhinitis, unspecified type J31.0 Active 91641572 Problem Anemia, unspecified type D64.9 Active 207690909 Problem Primary osteoarthritis of right knee M17.11 Active 064546659 Problem Gastroesophageal reflux disease without esophagitis K21.9 Active 352441495 Problem Acquired hypothyroidism E03.9 Active [id number] ALLERGIES No Information ENCOUNTERS Encounter Location Date Diagnosis [place] [id number] [place] [id number] Jun, Gastroesophageal reflux disease without esophagitis K21.9 [place] [address] [address] [id number] [place] [address] May, [place] [id number] [place] [address] May, Viral upper respiratory tract infection J06.9 ; Bronchitis J40 and Morbid obesity E66.01 [place] [id number] [place] [address] Apr, Vitamin B12 deficiency E53.8 [place] [id number] [place] [address] Apr, [facility] [id number] [place] [id number] Apr, [place] [address] [id number] [place] [address] Apr, Gastroesophageal reflux disease without esophagitis K21.9 ; Acquired hypothyroidism E03.9 ; Anemia, unspecified type D64.9 ; Primary osteoarthritis of right knee M17.11 ; Anxiety F41.9 and BMI 45.0-49.9, adult Z68.[address] [place] [address] [id number] Mar, Anxiety F41.9 [place] [id number] [place] [id number] Aug, Gastroesophageal reflux disease without esophagitis K21.9 ; Anxiety F41.9 ; Acquired hypothyroidism E03.9 ; BMI 40.0-44.9, adult Z68.41 and Screening for heart disease Z13.6 [place] [id number] [place] [address] [id number] Feb, Anxiety F41.[address] [id number] Feb, Medicare annual wellness visit, subsequent Z00.00 ; BMI 40.0-44.9, adult Z68.41 and Encounter for immunization Z23 [place] [id number] [place] [id number] Feb, Anxiety F41.9 ; Acquired hypothyroidism E03.9 and BMI 40.0-44.9, adult Z68.41 [place] [id number] [place] [address] [id number] Jan, Acquired hypothyroidism E03.9 [place] [id number] [place] [address] [id number] Jan, Colon cancer screening Z12.11 [address] [place] [address] [id number] Dec, Anxiety F41.9 ; Acquired hypothyroidism E03.9 and Encounter for immunization Z23 [place] [id number] [place] [address] [id number] Oct, Anxiety F41.9 and Acquired hypothyroidism E03.9 [place] [id number] [place] [address] [id number] May, Anxiety F41.9 and Rhinitis, unspecified type J31.0 [address] [place] [address] [id number] Apr, [place] [id number] [id number] Mar, [facility] [id number], [place] [id number] Mar, [facility] [id number], [place] [id number] Nov, [facility] [id number][place] [id number] Sep, [facility] [id number] [place] [address] [id number] Sep, Vitamin B12 deficiency E53.8 [facility] [id number], [place] [id number] Sep, [facility] [address] [place] [id number] [place] [address] [id number] July, Anemia, unspecified type D64.9 ; Acquired hypothyroidism E03.9 ; Primary osteoarthritis of right knee M17.11 ; Anxiety F41.9 and Gastroesophageal reflux disease without esophagitis K21.9 [facility] [id number][place] [id number] July, [facility] [id number], [place] [id number] Apr, Other specified abdominal hernia without obstruction or gangrene K45.8 [facility] [id number], [place] [id number] Apr, [place] [id number], [place] [id number] Apr, [facility] [id number], [place] [id number] Apr, Primary osteoarthritis of right knee M17.11 ; Poor diet E63.9 ; Morbid obesity due to excess calories E66.01 and Vitamin B12 deficiency E53.8 [facility] [id number], [place] [id number] Dec, Upper respiratory tract infection, unspecified upper respiratory infection J06.9 [facility] [id number], [place] [id number] Dec, Arthritis M19.90 and Hypothyroidism, unspecified E03.9 [facility] [place] [address] [id number][place] [id number] Nov, [facility] [place] [facility] [address] [facility] [id number] [place] [address] Jun, [facility] [place] [facility] [address] [facility] [id number], [place] [address] Jun, [facility] [place] [address] [facility] [id number][place] [id number] Apr, [facility] [place] [facility] [address] [facility] [id number] [place] [address] Apr, [facility] [place] [facility] [id number] [address] Mar, [facility] [place] [address] [facility] [id number][place] [id number] Mar, [facility] [place] [facility] [address]00565100[place], [place] [address] Mar, [facility] [place] [facility] [address]00565100[place], [place] [address] Feb, [facility] [place] [address] [facility] [id number], [place] [id number] Feb, [facility] [place] [facility] [address] [place] [address] [id number], [place] [address] Jan, [facility] [place] [address] [facility] [id number], [place] [id number] Jan, [facility] [place] [facility] [address] [place] [address] [id number], [place] [address] Dec, [facility] [place] [address] [id number], [place] [id number] 16 Dec, 2013 [facility] [place] [address] [facility] [id number], [place] [id number] Dec, [facility] [place] [facility] [address] [id number], [place] [address] Dec, [facility] [place] [address] [facility] [id number], [place] [id number] Nov, [facility] [place] [facility] [address] [id number] [place] [address] Nov, [facility] [place] [address] [id number] [place] [id number] Sep, [facility] [place] [facility] [address] [id number] [place] [address] Sep, [facility] [place] [address] [id number] [place] [id number] Sep, [facility] [place] [facility] [address] [id number] [place] [address] Sep, [facility] [place] [facility] [address] [facility] [id number] [place] [address] Sep, [facility] [place] [facility] [address] [facility] [id number] [place] [address] Aug, [facility] [place] [facility] [address] [facility] [id number] [place] [address] Aug, [facility] [place] [address] [id number] [place] [id number] Aug, [facility] [place] [address] [id number] [place] [id number] July, [facility] [place] [facility] [address] [facility] [id number] [place] [address] July, [facility] [place] [address] [id number] [place] [id number] Jun, [facility] [place] [facility] [address] [id number] [place] [address] Jun, [facility] [place] [address] [id number] [place] [id number] Jun, [facility] [place] [facility] [address] [facility] [id number] [place] [address] Jun, [facility] [place] [address] [id number] [place] [id number] Mar, [facility] [place] [facility] [address] [facility] [id number], [place] [address] Mar, [facility] [place] [facility] [address] [id number], [place] [address] Mar, [facility] [place] [address] [id number], [place] [id number] Feb, [facility] [place] [facility] [address] [facility] [id number], [place] [address] Feb, [facility] [place] [address] [id number], [place] [id number] Feb, [facility] [place] [facility] [address] [facility] [id number], [place] [address] Feb, [facility] [place] [facility] [address] [facility] [id number], [place] [address] Feb, [facility] [place] [address] [id number], [place] [id number] Dec, [facility] [place] [facility] [address] [facility] [id number], [place] [address] Dec, [facility] [place] [address] [id number], [place] [id number] Dec, [facility] [place] [facility] [address] [facility] [id number], [place] [address] Dec, [facility] [place] [address] [id number], [place] [id number] Dec, [facility] [place] [address] [id number], [place] 762329584 Dec, [facility] [place] [facility] [address] [facility] [id number], [place] [address] Dec, [facility] [place] [facility] [address] [facility] [id number], [place] [address] Dec, [facility] [place] [address] [id number], [place] 536[address] Nov, [facility] [place] [address] [id number], [place] 920456922 Nov, [facility] [place] [address] [id number] [place] [id number] Nov, [facility] [place] [address] [id number] [place] [id number] Nov, [facility] [place] [address] [id number] [place] [id number] Oct, [facility] [place] [address] [id number] [place] [id number] Oct, [facility] [place] [address] [id number] [place] [id number] Oct, [facility] [address] [facility] [id number] [place] [address] Sep, [facility] [address] [facility] [id number] [place] [address] Sep, [facility] [place] [address] [id number] [place] [id number] Sep, [facility] [place] [address] [id number] [place] 5[place]01585 Sep, [facility] [address] [facility] [id number] [place] [address] Aug, [facility] [place] [address] [id number] [place] [id number] Aug, [facility] [place] [address] [id number] [place] [id number] July, [facility] [place] [address] [id number] [place] [id number] Jun, [facility] [place] [address] [id number] [place] [id number] Jun, [facility] [place] [address] [id number] [place] 922840089 May, [facility] [place] [address] [id number] [place] [id number] May, [facility] [place] [address] [id number] [place] [id number] May, [facility] [place] [address] [id number] [place] [id number] May, [facility] [place] [address] [id number] [place] 926674[address] May, [facility] [place] [address] [id number] [place] [id number] May, [facility] [place] [facility] [address] [facility] [id number], [place] [address] Apr, [facility] [place] [address] [id number] [place] [id number] Apr, [facility] [place] [address] [id number] [place] [id number] Apr, [facility] [place] [facility] [address] [facility] [id number], [place] [address] Apr, [facility] [place] [facility] [address] [facility] [id number] [place] [address] Apr, [facility] [place] [id number], [place] [id number] Apr, [facility] [place] [address] [id number], [place] [id number] Jan, [facility] [place] [facility] [address] [facility] [id number], [place] [address] Jan, [facility] [place] [address] [facility] [id number], [place] 515664405 Jan, [facility] [place] [facility] [address] [place] [address] [id number], [place] [address] Jan, [facility] [place] [address] [id number], [place] [id number] Dec, [facility] [place] [facility] [address] [facility] [id number], [place] [address] Dec, [facility] [place] [address] [id number], [place] [id number] Nov, [facility] [address] [id number], [place] [id number] Oct, [facility] [place] [address] [id number], [place] 281010180 Oct, [facility] [place] [address] [id number], [place] [id number] Oct, [facility] [address] [place] [address] [id number], [place] 857[address]2780 Sep, [facility] [address] [place] [address] [id number], [place] [id number] July, [facility] [address] [place] [id number], [place] 478290982 Jun, [facility] [address] [place] [address] [id number], [place] [id number] Mar, [facility] [address]00565100[place], [place] [address] Feb, [facility] [address] [id number] [place] [address] Feb, [facility] [id number] [place] [address] Jan, [facility] [address] [place] [id number] [place] [address] Jan, [facility] [address]00565100[place], [place] [address] Dec, [facility] [address] [place] [address] [id number], [place] [address] Dec, [facility] [address]00565100[place], [place] [address] May, [facility] [address]00565100[place], [place] [address] Apr, IMMUNIZATIONS No Known Immunizations SOCIAL HISTORY Never Assessed REASON FOR VISIT [facility] PLAN OF CARE VITAL SIGNS MEDICATIONS Unknown [...]
--- OUTSIDE RECORDS SUMMARY | 2018-09-07 13:02 | XMS REPORT ---
Author Author Migration, Doctor Organization [facility] Address Unknown Phone Unavailable Care Team Providers Care Biological Engineer Name Role Phone Migration, Doctor Unavailable Unavailable PROBLEMS Type Condition ICD9-CM Code ELT30-OR Code Onset Dates Condition Status SNOMED Code Problem Anxiety F41.9 Active 42946754 Problem Rhinitis, unspecified type J31.0 Active 41638393 Problem Anemia, unspecified type D64.9 Active 107608087 Problem Primary osteoarthritis of right knee M17.11 Active 435093586 Problem Gastroesophageal reflux disease without esophagitis K21.9 Active 456299238 Problem Acquired hypothyroidism E03.9 Active 928572471 ALLERGIES No Information ENCOUNTERS Encounter Location Date Diagnosis [place] [id number] [place] [id number] Jun, Gastroesophageal reflux disease without esophagitis K21.9 [place] [address] [place] [id number] [place] [address] May, [place] [address] [place] [id number] [place] [phone] May, Viral upper respiratory tract infection J06.9 ; Bronchitis J40 and Morbid obesity E66.01 [place] [address] [place] [place] [id number] [place] [address] Apr, Vitamin B12 deficiency E53.8 [place] [address] [place] [id number] [place] [address] Apr, [facility] [id number] [place] [id number] Apr, [place] [address] [place] [id number] [place] [phone] Apr, Gastroesophageal reflux disease without esophagitis K21.9 ; Acquired hypothyroidism E03.9 ; Anemia, unspecified type D64.9 ; Primary osteoarthritis of right knee M17.11 ; Anxiety F41.9 and BMI 45.0-49.9, adult Z68.[id number] [place] [address] [id number] Mar, Anxiety F41.9 [place] [id number] [place] [address] [id number] Aug, Gastroesophageal reflux disease without esophagitis K21.9 ; Anxiety F41.9 ; Acquired hypothyroidism E03.9 ; BMI 40.0-44.9, adult Z68.41 and Screening for heart disease Z13.6 [place] [id number] [place] [address] [id number] Feb, Anxiety F41.[address] [id number] Feb, Medicare annual wellness visit, subsequent Z00.00 ; BMI 40.0-44.9, adult Z68.41 and Encounter for immunization Z23 [place] [id number] [place] [address] [id number] Feb, Anxiety F41.9 ; Acquired hypothyroidism E03.9 and BMI 40.0-44.9, adult Z68.41 [place] [id number] [place] [address] [id number] Jan, Acquired hypothyroidism E03.9 [place] [id number] [place] [address] [id number] Jan, Colon cancer screening Z12.11 [id number] [place] [address] [id number] Dec, Anxiety F41.9 ; Acquired hypothyroidism E03.9 and Encounter for immunization Z23 [place] [id number] [place] [address] [id number] Oct, Anxiety F41.9 and Acquired hypothyroidism E03.9 [place] [id number] [place] [address] [id number] May, Anxiety F41.9 and Rhinitis, unspecified type J31.0 [id number] [place] [address] [id number] Apr, [place] [id number] [id number] Mar, [facility] [id number], [place] [id number] Mar, [facility] [id number], [place] [id number] Nov, [facility] [id number] [id number] Sep, [facility] [id number] [place] [address] [id number] Sep, Vitamin B12 deficiency E53.8 [facility] [id number], [place] [id number] Sep, [facility] [address] [place] [id number] [place] [address] [id number] July, Anemia, unspecified type D64.9 ; Acquired hypothyroidism E03.9 ; Primary osteoarthritis of right knee M17.11 ; Anxiety F41.9 and Gastroesophageal reflux disease without esophagitis K21.9 [facility] [id number], [place] [id number] July, [facility] [id number], [place] [id number] Apr, Other specified abdominal hernia without obstruction or gangrene K45.8 [facility] [id number], [place] [id number] Apr, [place] [id number], [place] [id number] Apr, [facility] [id number], [place] [id number] Apr, Primary osteoarthritis of right knee M17.11 ; Poor diet E63.9 ; Morbid obesity due to excess calories E66.01 and Vitamin B12 deficiency E53.8 [facility] [id number], [place] [id number] Dec, Upper respiratory tract infection, unspecified upper respiratory infection J06.9 [facility] [id number], [place] [id number] Dec, Arthritis M19.90 and Hypothyroidism, unspecified E03.9 [facility] [place] [address] [id number], [place] [id number] Nov, [facility] [place] [facility] [address] [facility] [id number] [place] [address] Jun, [facility] [place] [facility] [address] [facility] [id number], [place] [address] Jun, [facility] [place] [address] [facility] [id number][place] [id number] Apr, [facility] [place] [facility] [address] [facility] [id number] [place] [address] Apr, [facility] [place] [facility] [id number] [place] [address] Mar, [facility] [place] [address] [facility] [id number], [place] [id number] Mar, [facility] [place] [facility] [address]00565100[place], [place] [address] Mar, [facility] [place] [facility] [address]00565100[place], [place] [address] Feb, [facility] [place] [address] [facility] [id number], [place] [id number] Feb, [facility] [place] [facility] [address] [place] [id number], [place] [address] Jan, [facility] [place] [address] [facility] [id number], [place] [id number] Jan, [facility] [place] [facility] [address] [place] [address] [id number], [place] [address] Dec, [facility] [place] [address] [id number], [place] [id number] 16 Dec, 2013 [facility] [place] [address] [facility] [id number], [place] [id number] Dec, [facility] [place] [facility] [address] [place] [address] [id number], [place] [address] Dec, [facility] [place] [address] [facility] [id number], [place] [id number] Nov, [facility] [place] [facility] [address] [id number] [place] [address] Nov, [facility] [place] [address] [id number] [place] [id number] Sep, [facility] [place] [facility] [address] [id number] [place] [address] Sep, [facility] [place] [address] [id number] [place] [id number] Sep, [facility] [place] [facility] [address] [id number] [place] [address] Sep, [facility] [place] [facility] [address] [facility] [id number] [place] [address] Sep, [facility] [place] [facility] [address] [facility] [id number] [place] [address] Aug, [facility] [place] [facility] [address] [facility] [id number] [place] [address] Aug, [facility] [place] [address] [id number] [place] [id number] Aug, [facility] [place] [address] [id number] [place] [id number] July, [facility] [place] [facility] [address] [facility] [id number] [place] [address] July, [facility] [place] [address] [id number] [place] [id number] Jun, [facility] [place] [facility] [address] [id number] [place] [address] Jun, [facility] [place] [address] [id number] [place] [id number] Jun, [facility] [place] [facility] [address] [facility] [id number] [place] [address] Jun, [facility] [place] [address] [id number] [place] [id number] Mar, [facility] [place] [facility] [address] [facility] [id number], [place] [address] Mar, [facility] [place] [facility] [address] [id number], [place] [address] Mar, [facility] [place] [address] [id number], [place] [id number] Feb, [facility] [place] [facility] [address] [facility] [id number], [place] [address] Feb, [facility] [place] [address] [id number], [place] [id number] Feb, [facility] [place] [facility] [address] [facility] [id number], [place] [address] Feb, [facility] [place] [facility] [address] [facility] [id number], [place] [address] Feb, [facility] [place] [address] [id number], [place] [id number] Dec, [facility] [place] [facility] [address] [facility] [id number], [place] [address] Dec, [facility] [place] [address] [id number], [place] 705262844 Dec, [facility] [place] [facility] [address] [facility] [id number], [place] [address] Dec, [facility] [place] [address] [id number], [place] 169[address]50 Dec, [facility] [place] [address] [id number], [place] 298[address] Dec, [facility] [place] [facility] [address] [facility] [id number], [place] [address] Dec, [facility] [place] [facility] [address] [facility] [id number], [place] [address] Dec, [facility] [place] [address] [id number], [place] [id number] Nov, [facility] [place] [address] [id number], [place] 1235[address]404 Nov, [facility] [place] [address] [id number] [place] [address] Nov, [facility] [place] [address] [id number] [place] 721139[address] Nov, [facility] [place] [address] [id number] [place] 31155[address] Oct, [facility] [place] [address] [id number] [place] [id number] Oct, [facility] [place] [address] [id number] [place] 3997[address]144 Oct, [facility] [address] [facility] [id number] [place] [address] Sep, [facility] [address] [facility] [id number] [place] [address] Sep, [facility] [place] [address] [id number] [place] 14[address] Sep, [facility] [place] [address] [id number] [place] [id number] Sep, [facility] [address] [facility] [id number] [place] [address] Aug, [facility] [place] [address] [id number] [place] 825190277 Aug, [facility] [place] [address] [id number] [place] 285[address]84[address] July, [facility] [place] [address] [id number] [place] [id number] Jun, [facility] [place] [address] [id number] [place] 962140578 Jun, [facility] [place] [address] [id number] [place] 155046687 May, [facility] [place] [address] [id number] [place] [id number] May, [facility] [place] [address] [id number] [place] [address] May, [facility] [place] [address] [id number] [place] 7277[address] May, [facility] [place] [address] [id number] [place] 126666867 May, [facility] [place] [address] [id number] [place] 765273956 May, [facility] [place] [facility] [address] [facility] [id number], [place] [address] Apr, [facility] [place] [address] [id number] [place] [id number] Apr, [facility] [place] [address] [id number] [place] [id number] Apr, [facility] [place] [facility] [address] [facility] [id number], [place] [address] Apr, [facility] [place] [facility] [address] [facility] [id number] [place] [address] Apr, [facility] [place] [id number], [place] 405[address]36 Apr, [facility] [place] [address] [id number], [place] [id number] Jan, [facility] [place] [facility] [address] [facility] [id number], [place] [address] Jan, [facility] [place] [address] [facility] [id number], [place] [id number] Jan, [facility] [place] [facility] [address] [place] [address] [id number], [place] [address] Jan, [facility] [place] [address] [id number], [place] 132813774 Dec, [facility] [place] [facility] [address] [facility] [id number], [place] [address] Dec, [facility] [place] [address] [id number], [place] [id number] Nov, [facility] [place] [address] [id number], [place] 070768363 Oct, [facility] [place] [address] [id number], [place] 248936483 Oct, [facility] [place] [address] [id number], [place] 912983107 Oct, [facility] [address] [place] [id number], [place] [address]692069 Sep, [facility] [address] [place] [id number], [place] [id number] July, [facility] [address] [id number], [place] [id number] Jun, [facility] [address] [place] [id number], [place] [id number] Mar, [facility] [address]00565100[place], [place] [address] Feb, [facility] [address] [place] [id number] [place] [address] Feb, [facility] [id number] [place] [address] Jan, [facility] [address] [place] [address] [id number] [place] [address] Jan, [facility] [address]00565100[place], [place] [address] Dec, [facility] [address] [address] [id number], [place] [address] Dec, [facility] [address]00565100[place], [place] [address] May, [facility] [address]00565100[place], [place] [address] Apr, IMMUNIZATIONS No Known Immunizations SOCIAL HISTORY Never Assessed REASON FOR VISIT [facility] [place] OF CARE VITAL SIGNS MEDICATIONS Unknown [...]
--- OUTSIDE RECORDS SUMMARY | 2018-09-07 13:02 | XMS REPORT ---
Author Author Migration, Doctor Organization [facility] Address Unknown Phone Unavailable Care Team Providers Care Core Extruder Name Role Phone Migration, Doctor Unavailable Unavailable PROBLEMS Type Condition ICD9-CM Code QWK37-NE Code Onset Dates Condition Status SNOMED Code Problem Anxiety F41.9 Active 56431137 Problem Rhinitis, unspecified type J31.0 Active 93683680 Problem Anemia, unspecified type D64.9 Active 077589624 Problem Primary osteoarthritis of right knee M17.11 Active 028819128 Problem Gastroesophageal reflux disease without esophagitis K21.9 Active 487835679 Problem Acquired hypothyroidism E03.9 Active 595590486 ALLERGIES No Information ENCOUNTERS Encounter Location Date Diagnosis [place] [id number] [place] [address] Jun, Gastroesophageal reflux disease without esophagitis K21.9 [place] [address] [place] [id number] [place] [address] May, [place] [address] [id number] [place] [address] May, Viral upper respiratory tract infection J06.9 ; Bronchitis J40 and Morbid obesity E66.01 [place] [address] [id number] [place] [address] Apr, Vitamin B12 deficiency E53.8 [place] [address] [id number] [place] [address] Apr, [facility] [id number] [place] [id number] Apr, [place] [address] [id number] [place] [address] Apr, Gastroesophageal reflux disease without esophagitis K21.9 ; Acquired hypothyroidism E03.9 ; Anemia, unspecified type D64.9 ; Primary osteoarthritis of right knee M17.11 ; Anxiety F41.9 and BMI 45.0-49.9, adult Z68.[address] [place] [address] [id number] Mar, Anxiety F41.9 [place] [id number] [place] [id number] Aug, Gastroesophageal reflux disease without esophagitis K21.9 ; Anxiety F41.9 ; Acquired hypothyroidism E03.9 ; BMI 40.0-44.9, adult Z68.41 and Screening for heart disease Z13.[address] [place] [id number] [place] [id number] Feb, Anxiety F41.[address] [id number] Feb, Medicare annual wellness visit, subsequent Z00.00 ; BMI 40.0-44.9, adult Z68.41 and Encounter for immunization Z23 [place] [id number] [place] [phone] Feb, Anxiety F41.9 ; Acquired hypothyroidism E03.9 and BMI 40.0-44.9, adult Z68.[address] [place] [id number] [place] [address] [phone] Jan, Acquired hypothyroidism E03.[address] [place] [id number] [place] [address] [phone] Jan, Colon cancer screening Z12.[address] [place] [address] [phone] Dec, Anxiety F41.9 ; Acquired hypothyroidism E03.9 and Encounter for immunization Z23 [place] [id number] [place] [address] [phone] Oct, Anxiety F41.9 and Acquired hypothyroidism E03.9 [place] [id number] [place] [address] [id number] May, Anxiety F41.9 and Rhinitis, unspecified type J31.[address] [place] [address] [id number] Apr, [place] [id number] [id number] Mar, [facility] [id number] [place] [id number] Mar, [facility] [id number] [place] [id number] Nov, [facility] [id number] [place] [id number] Sep, [facility] [id number] [place] [phone] Sep, Vitamin B12 deficiency E53.8 [facility] [id number] [place] [id number] Sep, [facility] [address] [place] [id number] [place] [phone] July, Anemia, unspecified type D64.9 ; Acquired hypothyroidism E03.9 ; Primary osteoarthritis of right knee M17.11 ; Anxiety F41.9 and Gastroesophageal reflux disease without esophagitis K21.9 [facility] [id number] [place] [phone] July, [facility] [id number] [place] [id number] Apr, Other specified abdominal hernia without obstruction or gangrene K45.8 [facility] [id number] [place] [id number] Apr, [place] [id number] [place] [id number] Apr, [facility] [id number] [place] [id number] Apr, Primary osteoarthritis of right knee M17.11 ; Poor diet E63.9 ; Morbid obesity due to excess calories E66.01 and Vitamin B12 deficiency E53.8 [facility] [id number] [place] [phone] Dec, Upper respiratory tract infection, unspecified upper respiratory infection J06.9 [facility] [id number] [place] [id number] Dec, Arthritis M19.90 and Hypothyroidism, unspecified E03.9 [facility] [place] [address] [id number] [place] [phone] Nov, [facility] [place] [facility] [address] [facility] [id number] [place] [address] Jun, [facility] [place] [facility] [address] [facility] [id number] [address] Jun, [facility] [place] [address] [facility] [id number] [place] [id number] Apr, [facility] [place] [facility] [address] [facility] [id number] [place] [address] Apr, [facility] [place] [facility] [address] [place] [address] Mar, [facility] [place] [address] [facility] [id number] [place] [id number] Mar, [facility] [place] [facility] [address]00565100[place] [address] Mar, [facility] [place] [facility] [address]00565100[place] [address] Feb, [facility] [place] [address] [facility] [facility] [id number] [place] [id number] Feb, [facility] [place] [facility] [address] [place] [address] [id number] [address] Jan, [facility] [address] [facility] [facility] [id number] [place] [address] Jan, [facility] [place] [facility] [address] [place] [id number] [address] Dec, [facility] [address] [id number] [place] [id number] 16 Dec, 2013 [facility] [place] [address] [facility] [facility] [id number] [place] [id number] Dec, [facility] [place] [facility] [address] [place] [id number] [address] Dec, [facility] [address] [facility] [facility] [id number] [place] [id number] Nov, [facility] [place] [facility] [address] [id number] [place] [address] Nov, [facility] [address] [id number] [place] [address] Sep, [facility] [place] [facility] [address] [id number] [place] [address] Sep, [facility] [address] [id number] [place] [id number] Sep, [facility] [place] [facility] [address] [id number] [place] [address] Sep, [facility] [place] [facility] [address] [facility] [id number] [place] [address] Sep, [facility] [place] [facility] [address] [facility] [id number] [place] [address] Aug, [facility] [place] [facility] [address] [facility] [id number] [place] [address] Aug, [facility] [place] [address] [id number] [place] [id number] Aug, [facility] [address] [id number] [place] [id number] July, [facility] [place] [facility] [address] [facility] [id number] [place] [address] July, [facility] [place] [address] [id number] [place] [id number] Jun, [facility] [place] [facility] [address] [id number] [place] [address] Jun, [facility] [place] [address] [id number] [place] [id number] Jun, [facility] [place] [facility] [address] [facility] [id number] [place] [address] Jun, [facility] [address] [id number] [place] [id number] Mar, [facility] [place] [facility] [address] [facility] [id number] [address] Mar, [facility] [place] [facility] [address] [id number] [address] Mar, [facility] [address] [id number] [place] [address] Feb, [facility] [place] [facility] [address] [facility] [id number], [place] [address] Feb, [facility] [address] [id number] [place] [id number] Feb, [facility] [place] [facility] [address] [facility] [id number] [address] Feb, [facility] [place] [facility] [address] [facility] [id number] [address] Feb, [facility] [address] [id number] [place] [id number] Dec, [facility] [place] [facility] [address] [facility] [id number] [address] Dec, [facility] [address] [id number] [place] [address] Dec, [facility] [place] [facility] [address] [facility] [id number][place] [address] Dec, [facility] [address] [id number] [place] [address] Dec, [facility] [address] [id number] [place] 109[address] Dec, [facility] [place] [facility] [address] [facility] [id number][place] [address] Dec, [facility] [place] [facility] [address] [facility] [id number][place] [address] Dec, [facility] [address] [id number] [place] [id number] Nov, [facility] [address] [id number] [place] [address] Nov, [facility] [place] [address] [id number] [place] [address] Nov, [facility] [place] [address] [id number] [place] [address] Nov, [facility] [place] [address] [id number] [place] [address] Oct, [facility] [address] [id number] [place] 12[address] Oct, [facility] [address] [id number] [place] [address] Oct, [facility] [address] [facility] [id number] [place] [address] Sep, [facility] [address] [facility] [id number] [place] [address] Sep, [facility] [address] [id number] [place] [id number] Sep, [facility] [address] [id number] [place] [id number] Sep, [facility] [address] [facility] [id number] [place] [address] Aug, [facility] [address] [id number] [place] [address] Aug, [facility] [address] [id number] [place] [id number] July, [facility] [address] [id number] [place] [address] Jun, [facility] [address] [id number] [place] [address] Jun, [facility] [address] [id number] [place] [address] May, [facility] [address] [id number] [place] 18[address]134[address] May, [facility] [address] [id number] [place] 88[address]13[address] May, [facility] [address] [id number] [place] 657[address]8037 May, [facility] [address] [id number] [place] [id number] May, [facility] [address] [id number] [place] 4[place] May, [facility] [place] [facility] [address] [facility] [id number][place] [address] Apr, [facility] [place] [address] [id number] [place] [address] Apr, [facility] [address] [id number] [place] [address] Apr, [facility] [place] [facility] [address] [facility] [id number] [address] Apr, [facility] [place] [facility] [address] [facility] [id number] [place] [address] Apr, [facility] [id number] [place] [address] Apr, [facility] [address] [id number] [place] 0[address] Jan, [facility] [place] [facility] [address] [facility] [id number], [place] [address] Jan, [facility] [address] [facility] [facility] [id number] [place] [address] Jan, [facility] [place] [facility] [address] [place] [address] [id number] [address] Jan, [facility] [address] [id number] [place] [id number] Dec, [facility] [place] [facility] [address] [facility] [id number] [address] Dec, [facility] [address] [id number] [place] 46[address] Nov, [facility] [address] [id number] [place] 5278833[address] Oct, [facility] [address] [id number] [place] 68[address]497[address] Oct, [facility] [address] [id number] [place] 42[address]364 Oct, [facility] [address] [place] [id number] [place] [address] Sep, [facility] [address] [id number] [place] [address] July, [facility] [address] [place] [id number] [place] [address] Jun, [facility] [address] [place] [address] [id number] [place] [address] Mar, [facility] [address]00565100[place] [address] Feb, [facility] [address] [id number] [place] [address] Feb, [facility] [id number] [place] [address] Jan, [facility] [id number] [place] [address] Jan, [facility] [address]00565100[place] [address] Dec, [facility] [address] [id number] [address] Dec, [facility] [address]00565100[place] [address] May, [facility] [address]00565100[place] [address] Apr, IMMUNIZATIONS No Known Immunizations SOCIAL HISTORY Never Assessed REASON FOR VISIT [facility] PLAN OF CARE VITAL SIGNS MEDICATIONS Unknown [...]
[2018-09-07] MEDS ORDERED: KETOROLAC 60 MG/2 ML VIAL IM STA (13:03)
--- OUTSIDE RECORDS SUMMARY | 2018-09-07 13:03 | XMS REPORT ---
Author MICHAEL Kumar [employer] Address Unknown Phone Unavailable Care Team Providers Care Vegetables Cook Name Role Phone MICHAEL GARZA CP Unavailable Allergies, Adverse Reactions, Alerts Substance Reaction Event Type Mobic GI bleed Drug Allergy Aleve GI bleed Drug Allergy Problems Problem Type Condition Code Onset Dates Condition Status Problem Pain in joint, upper arm 719.42 Active Problem Acute bronchitis 466.0 Active Problem Blood in stool 578.1 Active Assessment Hypothyroidism, unspecified E03.9 Active Assessment Arthritis M19.90 Active Problem Hip, thigh, leg, and ankle, insect bite, nonvenomous, without mention of infection 916.4 Active Problem Other malaise and fatigue 780.79 Active Problem Unspecified abnormal mammogram 793.80 Active Problem Unspecified breast screening V76.10 Active Problem Special screening examination, human papillomavirus [HPV] V73.81 Active Problem Screening for malignant neoplasm of the cervix V76.2 Active Problem Pain in joint, site unspecified 719.40 Active Medications Medication Code System Code Instructions Start Date End Date Status Dosage Vitamin D3 [facility] [address] 1000 UNIT Orally Once a day 1 capsule levothyroxine NDC 0 50 mcg September 04, 2013 take 1 tablet (50 mcg) by oral route once daily Multivitamin [facility] [address] Dec 25, 2013 not defined Calcium Citrate [facility] [address] 500 MG Orally not defined Glucosamine Sulfate [facility] [address]-89 500 mg Jan 23, 2012 1 capsule by Oral route 2 times per day Vitamin B-12 [facility] [address]-91 1000 MCG Orally not defined Effexor XR [facility] [address]-35 75 MG Orally Once a day 1 capsule with food tramadol NDC 0 50 mg Mar 30, 2014 take 2 tablet by Oral route 2 times per day as needed PRN pain Vitamin C [facility] [address] 500 MG Orally not defined Biotin [facility] [address] 400 MCG Orally not defined Potassium [facility] [address]-38 99 MG Orally Once a day 1 tablet Vitamin E [facility] [address]-73 200 UNIT Orally Once a day 1 capsule Synthroid [facility] 90257839800 50 TAKE ONE TABLET BY MOUTH ONCE A DAY ON AN EMPTY STOMACH Procedures Procedure Coding System Code Date Office Visit, Est Pt., Level 3 CPT-4 97849 Dec 17, 2014 VENIPUNCT, ROUTINE* CPT-4 40890 Dec 17, 2014 ASSAY THYROID STIM HORMONE CPT-4 82463 Dec 17, 2014 Vital Signs Date/Time: Dec 17, 2014 Temperature 97.5 F Weight 271.8 lbs Height 68 in BMI 41.32 Index Blood Pressure Diastolic 74 mmHg Blood Pressure Systolic 120 mmHg Cardiac Monitoring Heart Rate 80 bpm Results Name Result Date Reference Range Unit Abnormality Flag ROUTINE VENIPUNCTURE TSH ----TSH 1.540 [id number] 0.450-4.500 uIU/mL Summary Purpose [employer] Submission
--- OUTSIDE RECORDS SUMMARY | 2018-09-07 13:03 | XMS REPORT ---
Author Author LUCY ROMERO [facility] Address [address] [place] [address] Care Team Providers Care Death Clearance Coordinator Name Role Phone LUCY ROMERO Unavailable PROBLEMS Type Condition ICD9-CM Code ISL53-UY Code Onset Dates Condition Status SNOMED Code Problem Pain in joint, site unspecified 719.40 Active 17788674 Problem Acute bronchitis 466.0 Active 86723113 Problem Blood in stool 578.1 Active 221089040 Problem Rhinitis, unspecified type J31.0 Active 45548565 Problem Anxiety F41.9 Active 11083336 Problem Primary osteoarthritis of right knee M17.11 Active 483401192 Problem Anemia, unspecified type D64.9 Active 688878385 Problem Acquired hypothyroidism E03.9 Active 747671063 Problem Gastroesophageal reflux disease without esophagitis K21.9 Active 991717063 Problem Screening for malignant neoplasm of the cervix V76.2 Active 028636340 Problem Hip, thigh, leg, and ankle, insect bite, nonvenomous, without mention of infection 916.4 Active 0649628 Problem Unspecified abnormal mammogram 793.80 Active 431810440 Problem Unspecified breast screening V76.10 Active 547985049 Problem Other malaise and fatigue 780.79 Active 181136005 Problem Special screening examination, human papillomavirus [HPV] V73.81 Active 692686741 Problem Pain in joint, upper arm 719.42 Active 881707764 ALLERGIES No Information SOCIAL HISTORY Never Assessed PLAN OF CARE VITAL SIGNS MEDICATIONS Medication Instructions Dosage Frequency Start Date End Date Duration Status Effexor XR 75 MG Orally Once a day, must come to appt on 05/18/16 for refills 1 capsule with food Active RESULTS No Results PROCEDURES No Known procedures IMMUNIZATIONS No Known Immunizations MEDICAL (GENERAL) HISTORY Type Description Date Medical [...]
--- OUTSIDE RECORDS SUMMARY | 2018-09-07 13:03 | XMS REPORT ---
Author Author LUCY ROMERO Organization [employer] Address Unknown Phone Unavailable Care Team Providers Care Photogrammetric Tech Name Role Phone LUCY ROMERO CP Unavailable Allergies No Known Allergies Problems Problem Type Condition Code Onset Dates Condition Status Problem Pain in joint, site unspecified 719.40 Active Problem Other malaise and fatigue 780.79 Active Problem Screening for malignant neoplasm of the cervix V76.2 Active Problem Acquired hypothyroidism E03.9 Active Problem Primary osteoarthritis of right knee M17.11 Active Problem Anemia, unspecified type D64.9 Active Problem Unspecified abnormal mammogram 793.80 Active Problem Hip, thigh, leg, and ankle, insect bite, nonvenomous, without mention of infection 916.4 Active Problem Anxiety F41.9 Active Problem Gastroesophageal reflux disease without esophagitis K21.9 Active Problem Blood in stool 578.1 Active Problem Acute bronchitis 466.0 Active Assessment Vitamin B12 deficiency E53.8 Active Problem Special screening examination, human papillomavirus [HPV] V73.81 Active Problem Pain in joint, upper arm 719.42 Active Problem Unspecified breast screening V76.10 Active Medications Medication Code System Code Instructions Start Date End Date Status Dosage Cyanocobalamin [facility] [address]-72 1000 MCG/ML Injection once every 30 days Apr 14, 2015 1 Results No Known Results Summary Purpose eClinicalWorks Submission
--- OUTSIDE RECORDS SUMMARY | 2018-09-07 13:03 | XMS REPORT ---
Author Author LUCY ROMERO [facility] Address [address] [place] [address] Care Team Providers Care Pet Ambassador Name Role Phone ROMEROLUCY OSEI Unavailable PROBLEMS Type Condition ICD9-CM Code KJP31-TC Code Onset Dates Condition Status SNOMED Code Problem Rhinitis, unspecified type J31.0 Active 34459812 Problem Anxiety F41.9 Active 12068756 Problem Primary osteoarthritis of right knee M17.11 Active 903829891 Problem Anemia, unspecified type D64.9 Active 895035711 Problem Acquired hypothyroidism E03.9 Active 527328864 Problem Gastroesophageal reflux disease without esophagitis K21.9 Active 625542418 ALLERGIES Substance Reaction Event Type Date Status Mobic GI bleed Drug Allergy Aug, Active Aleve GI bleed Drug Allergy Aug, Active ENCOUNTERS Encounter Location Date Diagnosis [address] [id number] Aug, Gastroesophageal reflux disease without esophagitis K21.9 ; Anxiety F41.9 ; Acquired hypothyroidism E03.9 ; BMI 40.0-44.9, adult Z68.41 and Screening for heart disease Z13.6 [place] [id number] [place] [address] [id number] Feb, Anxiety F41.[address] [id number] Feb, Medicare annual wellness visit, subsequent Z00.00 ; BMI 40.0-44.9, adult Z68.41 and Encounter for immunization Z23 [address] [id number] Feb, Anxiety F41.9 ; Acquired hypothyroidism E03.9 and BMI 40.0-44.9, adult Z68.[address] [place] [id number] [place] [address] [id number] Jan, Acquired hypothyroidism E03.9 [facility] [place] [id number] [place] [address] [id number] Jan, Colon cancer screening Z12.11 [facility] [place] [id number] [place] [address] [id number] Dec, Anxiety F41.9 ; Acquired hypothyroidism E03.9 and Encounter for immunization Z23 [facility] [place] [id number] [place] [address] [id number] Oct, Anxiety F41.9 and Acquired hypothyroidism E03.9 [facility] [place] [id number] [place] [address] [id number] May, Anxiety F41.9 and Rhinitis, unspecified type J31.0 [facility] [place] [id number] [place] [id number] Apr, [facility] [place] [id number] [place] [address] [id number] Mar, [facility] [place] [address] [id number] Mar, [facility] [place] [id number] [place] [address] [id number] Nov, [facility] [place] [id number] [place] [address] [phone] Sep, [facility] [place] [id number] [place] [address] [phone] Sep, Vitamin B12 deficiency E53.8 [facility] [place] [id number] [place] [address] [id number] Sep, [facility] [place] [id number] [place] [address] [id number] July, Anemia, unspecified type D64.9 ; Acquired hypothyroidism E03.9 ; Primary osteoarthritis of right knee M17.11 ; Anxiety F41.9 and Gastroesophageal reflux disease without esophagitis K21.9 [facility] [place] [id number] [place] [address] [id number] July, [facility] [place] [id number] [place] [address] [id number] Apr, Other specified abdominal hernia without obstruction or gangrene K45.8 [facility] [place] [id number] [id number] Apr, [facility] [place] [id number] [place] [address] [id number] Apr, [facility] [id number] [place] [address] [phone] Apr, Primary osteoarthritis of right knee M17.11 ; Poor diet E63.9 ; Morbid obesity due to excess calories E66.01 and Vitamin B12 deficiency E53.8 [facility] [id number] [place] [address] [id number] Dec, Upper respiratory tract infection, unspecified upper respiratory infection J06.9 [place] [id number] [place] [address] [id number] Dec, Arthritis M19.90 and Hypothyroidism, unspecified E03.[id number] [place] [address] [id number] Nov, [facility] [id number] [place] [phone] Jun, [facility] [id number] [place] [phone] Jun, [facility] [id number] [place] [address] [id number] Apr, [facility] [id number] [place] [phone] Apr, [facility] [id number] [place] [phone] Mar, [facility] [id number][place] [id number] Mar, [facility] [id number] [place] [phone] Mar, [facility] [id number] [place] [phone] Feb, [facility] [id number] [place] [address] [id number] Feb, [facility] [place] [facility] [address] [facility] [id number], [place] [address] Jan, [facility] [place] [address] [id number] [place] [phone] Jan, [facility] [place] [facility] [address] [facility] [id number] [place] [address] Dec, [facility] [place] [address] [id number] [place] [id number] Dec, [facility] [place] [address] [id number] [place] [phone] Dec, [facility] [place] [facility] [address] [facility] [id number] [place] [address] Dec, [facility] [place] [address] [facility] [id number] [place] [phone] Nov, [facility] [place] [facility] [address] [facility] [id number], [place] [address] Nov, [facility] [place] [address] [facility] [id number] [place] [id number] Sep, [facility] [place] [facility] [address] [facility] [id number], [place] [address] Sep, [facility] [place] [address] [facility] [id number][place] [phone] Sep, [facility] [place] [facility] [address] [facility] [id number], [place] [address] Sep, [facility] [place] [facility] [address] [facility] [id number], [place] [address] Sep, [facility] [place] [facility] [address] [facility] [id number], [place] [address] Aug, [facility] [place] [facility] [address] [facility] [id number], [place] [address] Aug, [facility] [place] [address] [id number] [place] [id number] Aug, [facility] [place] [address] [id number] [place] [id number] July, [facility] [place] [facility] [address] [id number] [place] [address] July, [facility] [place] [address] [id number] [place] [phone] Jun, [facility] [address] [facility] [id number] [place] [address] Jun, [facility] [place] [address] [id number] [place] [phone] Jun, [facility] [place] [facility] [address] [id number] [place] [address] Jun, [facility] [place] [address] [id number] [place] [id number] Mar, [facility] [place] [facility] [address] [facility] [id number] [place] [address] Mar, [facility] [place] [facility] [address] [facility] [id number] [place] [address] Mar, [facility] [place] [address] [facility] [id number] [place] [id number] Feb, [facility] [place] [facility] [address] [facility] [id number] [place] [address] Feb, [facility] [place] [address] [facility] [id number][place] [id number] Feb, [facility] [place] [facility] [address] [facility] [id number], [place] [address] Feb, [facility] [place] [facility] [address] [facility] [id number], [place] [address] Feb, [facility] [place] [address] [facility] [id number] [place] [phone] Dec, [facility] [place] [facility] [address] [facility] [id number], [place] [address] Dec, [facility] [place] [address] [facility] [id number] [place] [phone] Dec, [facility] [place] [facility] [address] [facility] [id number], [place] [address] Dec, [facility] [place] [address] [id number] [place] [phone] Dec, [facility] [place] [address] [id number] [place] [phone] Dec, [facility] [address] [facility] [id number] [place] [address] Dec, [facility] [address] [facility] [id number], [place] [address] Dec, [facility] [place] [address] [id number] [place] [id number] Nov, [facility] [place] [address] [id number] [place] [id number] Nov, [facility] [place] [address] [id number] [place] [id number] Nov, [facility] [place] [address] [id number] [place] [id number] Nov, [facility] [place] [address] [id number] [place] [id number] Oct, [facility] [place] [address] [id number] [place] [id number] Oct, [facility] [place] [address] [id number] [place] [phone] Oct, [facility] [address] [facility] [id number], [place] [address] Sep, [facility] [address] [facility] [id number], [place] [address] Sep, [facility] [place] [address] [id number] [place] [id number] Sep, [facility] [place] [address] [id number] [place] [id number] Sep, [facility] [place] [facility] [address] [facility] [id number], [place] [address] Aug, [facility] [place] [address] [id number] [place] [phone] Aug, [facility] [place] [address] [id number] [place] [id number] July, [facility] [place] [address] [id number] [place] [id number] Jun, [facility] [place] [address] [id number] [place] [phone] Jun, [facility] [place] [address] [id number] [place] [address] May, [facility] [place] [address] [id number] [place] [id number] May, [facility] [place] [address] [id number] [place] [id number] May, [facility] [place] [address] [id number] [place] [id number] May, [facility] [place] [address] [id number] [place] [id number] May, [facility] [place] [address] [id number] [place] [id number] May, [facility] [address] [facility] [id number], [place] [address] Apr, [facility] [place] [address] [id number] [place] [id number] Apr, [facility] [place] [address] [id number] [place] [id number] Apr, [facility] [address] [facility] [id number], [place] [address] Apr, [facility] [address] [facility] [id number], [place] [address] Apr, [facility] [place] [address] [id number] [place] [id number] Apr, [facility] [place] [address] [id number] [place] [id number] Jan, [facility] [address] [facility] [id number], [place] [address] Jan, [facility] [place] [address] [id number] [place] [phone] Jan, [facility] [place] [facility] [address] [facility] [id number], [place] [address] Jan, [facility] [place] [address] [id number] [place] [id number] Dec, [facility] [place] [facility] [address] [facility] [id number], [place] [address] Dec, [facility] [place] [address] [id number] [place] [id number] Nov, [facility] [place] [address] [id number] [place] [id number] Oct, [facility] [place] [address] [id number] [place] [id number] Oct, [facility] [place] [address] [id number] [place] [id number] Oct, [facility] [place] [address] [id number] [place] [id number] Sep, [facility] [place] [address] [id number] [place] [id number] July, [facility] [place] [address] [id number] [place] 9844557[address] Jun, [facility] [place] [address] [id number] [place] [id number] Mar, [facility] [place] [facility] [address], [place] [address] Feb, [facility] [place] [facility] [address]00565100[place], [place] [address] Feb, [facility] [place] [facility] [address] [facility] [id number], [place] [address] Jan, [facility] [place] [facility] [address] [facility] [id number], [place] [address] Jan, [facility] [place] [facility] [address] [facility] [id number], [place] [address] Dec, [facility] [place] [facility] [id number] [place] [address] Dec, [facility] [address] [facility] [id number] [place] [address] May, [facility] [address] [facility] [id number], [place] [address] Apr, IMMUNIZATIONS No Known Immunizations SOCIAL HISTORY Never Assessed REASON FOR VISIT Anxiety check up for med refills---SONAM anguiano PLAN OF CARE Activity Details Follow Up 6 Months Reason:thyroid VITAL SIGNS Height 68 in 2017-09-06 Weight 288.4 lbs 2017-09-06 Temperature 98 degrees Fahrenheit 2017-09-06 Heart Rate 72 bpm 2017-09-06 Respiratory Rate 16 2017-09-06 BMI 43.85 kg/m2 2017-09-06 Blood pressure systolic 122 mmHg 2017-09-06 Blood pressure diastolic 78 mmHg 2017-09-06 MEDICATIONS Medication Instructions Dosage Frequency Start Date End Date Duration Status Effexor XR 150 MG TAKE ONE CAPSULE BY MOUTH ONCE DAILY WITH FOOD Active Vitamin C 500 MG Active Synthroid 112 MCG Orally Once a day 1 tablet on an empty stomach in the morning 24h Active Potassium 99 MG Orally Once a day 1 tablet 24h Active Cyanocobalamin 1,000 INJECT 1ML INTRAMUSCULARLY EVERY 30 DAYS 30 Not-Taking Vitamin E 200 UNIT Orally Once a day 1 capsule 24h Active Vitamin D3 1000 UNIT Orally Once a day 1 capsule 24h Active Pantoprazole Sodium 40 mg Orally Once a day 1 tablet 24h Active Glucosamine Sulfate 500 mg 1 capsule by Oral route 2 times per day Jan, Active Calcium Citrate 500 MG Active Multivitamin Dec, Active Biotin 400 MCG Active RESULTS No Results PROCEDURES No Known [...]
--- OUTSIDE RECORDS SUMMARY | 2018-09-07 13:03 | XMS REPORT ---
Author Author LUCY ROMREO [facility] Address [address] [place] [address] Care Team Providers Care Information Systems Professor Name Role Phone LUCY ROMERO Unavailable PROBLEMS Type Condition ICD9-CM Code MMG97-TX Code Onset Dates Condition Status SNOMED Code Problem Pain in joint, site unspecified 719.40 Active 99487764 Problem Acute bronchitis 466.0 Active 10463690 Problem Blood in stool 578.1 Active 059901143 Problem Rhinitis, unspecified type J31.0 Active 69715044 Problem Anxiety F41.9 Active 07348533 Problem Primary osteoarthritis of right knee M17.11 Active 799022111 Problem Anemia, unspecified type D64.9 Active 097845855 Problem Acquired hypothyroidism E03.9 Active 028199331 Problem Gastroesophageal reflux disease without esophagitis K21.9 Active 709386528 Problem Screening for malignant neoplasm of the cervix V76.2 Active 201364028 Problem Hip, thigh, leg, and ankle, insect bite, nonvenomous, without mention of infection 916.4 Active 6146573 Problem Unspecified abnormal mammogram 793.80 Active 617937601 Problem Unspecified breast screening V76.10 Active 735533252 Problem Other malaise and fatigue 780.79 Active 732906174 Problem Special screening examination, human papillomavirus [HPV] V73.81 Active 303884067 Problem Pain in joint, upper arm 719.42 Active 706849356 ALLERGIES No Known Allergies SOCIAL HISTORY No smoking Hx information available PLAN OF CARE VITAL SIGNS MEDICATIONS Medication Instructions Dosage Frequency Start Date End Date Duration Status Effexor XR 75 MG Orally Once a day, NEEDS APPT BEFORE ANY FURTHER REFILLS 1 capsule with food 0 days Active RESULTS No Results PROCEDURES No Known procedures IMMUNIZATIONS No Known Immunizations
--- OUTSIDE RECORDS SUMMARY | 2018-09-07 13:03 | XMS REPORT ---
Author Author MICHAEL GARZA Organization [employer] Address Unknown Phone Unavailable Care Team Providers Care Plant Care Worker Name Role Phone MICHAEL GARZA Unavailable Allergies No Known Allergies Problems Problem Type Condition Code Onset Dates Condition Status Problem Pain in joint, upper arm 719.42 Active Problem Acute bronchitis 466.0 Active Problem Blood in stool 578.1 Active Problem Hip, thigh, leg, and ankle, [...] Instructions Start Date End Date Status Dosage Effexor XR [facility][NOTE 3] [address]-03 75 MG Orally Once a day 1 capsule with food Results No Known Results Summary Purpose [employer] Submission
--- OUTSIDE RECORDS SUMMARY | 2018-09-07 13:03 | XMS REPORT ---
Author Author MICHAEL GARZA Organization [employer] Address Unknown Phone Unavailable Care Team Providers Care Health Program Analyst Name Role Phone MICHAEL GARZA CP Unavailable Allergies No Known Allergies Problems [...] in joint, site unspecified 719.40 Active Medications No Known Medications Results No Known Results Summary Purpose [employer] Submission
--- OUTSIDE RECORDS SUMMARY | 2018-09-07 13:03 | XMS REPORT ---
Author Author LUCY ROMERO Organization [employer] Address Unknown Phone Unavailable Care Team Providers Care Outside Parts Salesman Name Role Phone LUCY ROMERO CP Unavailable [...] 578.1 Active Problem Acute bronchitis 466.0 Active Problem Special screening examination, human papillomavirus [HPV] V73.81 Active Problem Pain in joint, upper arm 719.42 Active Problem Unspecified breast screening V76.10 Active Medications Medication Code System Code Instructions Start Date End Date Status Dosage Effexor XR [facility] [address]-65 75 MG Orally Once a day 1 capsule with food Results No Known Results Summary Purpose [employer] Submission
--- OUTSIDE RECORDS SUMMARY | 2018-09-07 13:03 | XMS REPORT ---
Author Author LUCY ROMERO Organization [employer] Address Unknown Phone Unavailable Care Team Providers Care Platform Software Engineer Name Role Phone LUCY ROMERO CP Unavailable Allergies, Adverse Reactions, Alerts Substance Reaction Event Type Mobic GI bleed Drug Allergy Aleve GI bleed Drug Allergy Problems Problem Type Condition Code Onset Dates Condition Status Problem Pain in joint, upper arm 719.42 Active Problem Acute bronchitis 466.0 Active Problem Blood in stool 578.1 Active Assessment Upper respiratory tract infection, unspecified upper respiratory infection J06.9 Active Problem Hip, thigh, leg, and ankle, [...] Instructions Start Date End Date Status Dosage Multivitamin [facility] [address] Dec 25, 2013 not defined tramadol NDC 0 50 mg Mar 30, 2014 take 2 tablet by Oral route 2 times per day as needed PRN pain Biotin [facility] [address] 400 MCG Orally not defined Effexor XR [facility] [address]-77 75 MG Orally Once a day 1 capsule with food Vitamin B-12 [facility] [address]-17 1000 MCG Orally not defined Vitamin C [facility] [address] 500 MG Orally not defined Synthroid [facility] 26241455926 50 TAKE ONE TABLET BY MOUTH ONCE A DAY ON AN EMPTY STOMACH Potassium [facility] [address]-89 99 MG Orally Once a day 1 tablet Calcium Citrate [facility] [address]6626 500 MG Orally not defined Vitamin D3 [facility] [address]59-[address] 1000 UNIT Orally Once a day 1 capsule levothyroxine NDC 0 50 mcg September 04, 2013 take 1 tablet (50 mcg) by oral route once daily Glucosamine Sulfate NDC [address]-70 500 mg Jan 23, 2012 1 capsule by Oral route 2 times per day Vitamin E [facility] [address]-57 200 UNIT Orally Once a day 1 capsule Procedures Procedure Coding System Code Date Office Visit, Est Pt., Level 3 CPT-4 41480 Dec 30, 2014 Vital Signs Date/Time: Dec 30, 2014 Temperature 98.1 F Weight 266 lbs Height 68 in BMI 40.44 Index Blood Pressure Diastolic 76 mmHg Blood Pressure Systolic 120 mmHg Cardiac Monitoring Heart Rate 67 bpm Results No Known Results Summary Purpose [employer] Submission
--- OUTSIDE RECORDS SUMMARY | 2018-09-07 13:03 | XMS REPORT ---
Author Author LUCY ROMERO [facility] Address [address] [place] [address] Care Team Providers Care Telephone Collector Name Role Phone LUCY ROMERO Unavailable PROBLEMS Type Condition ICD9-CM Code TRL00-FM Code Onset Dates Condition Status SNOMED Code Problem Pain in joint, site unspecified 719.40 Active 73906326 Problem Acute bronchitis 466.0 Active 28720608 Problem Blood in stool 578.1 Active 560777318 Problem Rhinitis, unspecified type J31.0 Active 21033506 Problem Anxiety F41.9 Active 77770217 Problem Primary osteoarthritis of right knee M17.11 Active 857754383 Problem Anemia, unspecified type D64.9 Active 262733683 Problem Acquired hypothyroidism E03.9 Active 942528927 Problem Gastroesophageal reflux disease without esophagitis K21.9 Active 695223530 Problem Screening for malignant neoplasm of the cervix V76.2 Active 135247841 Problem Hip, thigh, leg, and ankle, insect bite, nonvenomous, without mention of infection 916.4 Active 8827410 Problem Unspecified abnormal mammogram 793.80 Active 598388304 Problem Unspecified breast screening V76.10 Active 166714004 Problem Other malaise and fatigue 780.79 Active 720714713 Problem Special screening examination, human papillomavirus [HPV] V73.81 Active 534554768 Problem Pain in joint, upper arm 719.42 Active 272163152 ALLERGIES No Known Allergies SOCIAL HISTORY No [...]
--- OUTSIDE RECORDS SUMMARY | 2018-09-07 13:04 | XMS REPORT ---
Author Author LUCY ROMERO [facility] Address [address] [place] [address] Care Team Providers Care Cheese Sprayer Name Role Phone LUCY ROMERO Unavailable PROBLEMS Type Condition ICD9-CM Code PAV97-IR Code Onset Dates Condition Status SNOMED Code Problem Rhinitis, unspecified type J31.0 Active 72793273 Problem Anxiety F41.9 Active 14091340 Problem Primary osteoarthritis of right knee M17.11 Active 119231741 Problem Anemia, unspecified type D64.9 Active 157035260 Problem Acquired hypothyroidism E03.9 Active 870664684 Problem Gastroesophageal reflux disease without esophagitis K21.9 Active 075332222 ALLERGIES No Information ENCOUNTERS Encounter Location Date Diagnosis [place] [id number] [place] [id number] Aug, [address] [id number] Feb, Anxiety F41.[address] [id number] Feb, Medicare annual wellness visit, subsequent Z00.00 ; BMI 40.0-44.9, adult Z68.41 and Encounter for immunization Z23 [place] [id number] [place] [address] [id number] Feb, Anxiety F41.9 ; Acquired hypothyroidism E03.9 and BMI 40.0-44.9, adult Z68.41 [place] [id number] [place] [address] [id number] Jan, Acquired hypothyroidism E03.[address] [id number] Jan, Colon cancer screening Z12.11 [place] [id number] [place] [address] [id number] Dec, Anxiety F41.9 ; Acquired hypothyroidism E03.9 and Encounter for immunization Z23 [facility] [place] [id number] [place] [id number] Oct, Anxiety F41.9 and Acquired hypothyroidism E03.9 [facility] [place] [address] [id number] [place] [id number] May, Anxiety F41.9 and Rhinitis, unspecified type J31.0 [facility] [place] [address] [id number] [place] [id number] Apr, [facility] [place] [address] [id number] [place] [id number] Mar, [facility] [place] [address] [id number] [place] [id number] Mar, [facility] [place] [id number] [place] [address], [place] [id number] Nov, [facility] [place] [id number] [place] [address] [id number] Sep, [facility] [place] [id number] [place] [address] [id number] Sep, Vitamin B12 deficiency E53.8 [facility] [place] [id number] [place] [address], [place] [id number] Sep, [facility] [place] [id number] [place] [address], [place] [id number] July, Anemia, unspecified type D64.9 ; Acquired hypothyroidism E03.9 ; Primary osteoarthritis of right knee M17.11 ; Anxiety F41.9 and Gastroesophageal reflux disease without esophagitis K21.9 [facility] [place] [id number] [place] [address] [id number] July, [facility] [place] [id number] [place] [address] [id number] Apr, Other specified abdominal hernia without obstruction or gangrene K45.8 [facility] [place] [address] [id number] [place] [id number] Apr, [facility] [place] [id number] [place] [address] [id number] Apr, [facility] [place] [id number] [place] [address] [id number] Apr, Primary osteoarthritis of right knee M17.11 ; Poor diet E63.9 ; Morbid obesity due to excess calories E66.01 and Vitamin B12 deficiency E53.8 [facility] [id number] [id number] Dec, Upper respiratory tract infection, unspecified upper respiratory infection J06.9 [facility] [address]005[place] [id number] Dec, Arthritis M19.90 and Hypothyroidism, unspecified E03.9 [facility] [id number], [place] [id number] Nov, [facility] [id number] [place] [address] Jun, [facility] [id number] [place] [address] Jun, [facility] [id number] [place] [address] [id number] Apr, [facility] [id number] [place] [address] Apr, [facility] [id number] [place] [address] Mar, [facility] [id number][place] [id number] Mar, [facility] [id number] [place] [address] Mar, [facility] [id number] [place] [address] Feb, [facility] [id number], [place] [id number] Feb, [facility] [id number] [place] [address] Jan, [facility] [id number], [place] [id number] Jan, [facility] [address] [id number] [address] Dec, [facility] [place] [address] [id number] [place] [id number] Dec, [facility] [place] [address] [id number] [place] [id number] Dec, [facility] [place] [facility] [address] [facility] [id number] [place] [address] Dec, [facility] [place] [address] [id number] [place] [id number] Nov, [facility] [place] [facility] [address] [id number] [place] [address] Nov, [facility] [place] [address] [id number] [place] [id number] Sep, [facility] [place] [facility] [address] [facility] [id number] [place] [address] Sep, [facility] [place] [address] [facility] [id number][place] [id number] Sep, [facility] [place] [facility] [address] [facility] [id number] [place] [address] Sep, [facility] [place] [facility] [address] [facility] [id number] [place] [address] Sep, [facility] [place] [facility] [address] [facility] [id number] [place] [address] Aug, [facility] [place] [facility] [address] [facility] [id number] [place] [address] Aug, [facility] [place] [address] [id number] [place] [id number] Aug, [facility] [place] [address] [id number] [place] [id number] July, [facility] [place] [facility] [address] [facility] [id number] [place] [address] July, [facility] [place] [address] [facility] [id number] [place] [id number] Jun, [facility] [place] [facility] [address] [facility] [id number] [place] [address] Jun, [facility] [place] [address] [facility] [id number], [place] [address] Jun, [facility] [place] [facility] [address] [facility] [id number] [place] [address] Jun, [facility] [place] [address] [facility] [id number][place] [address] Mar, [facility] [place] [facility] [address] [facility] [id number] [place] [address] Mar, [facility] [place] [facility] [address] [facility] [id number] [place] [address] Mar, [facility] [place] [address] [facility] [id number], [place] [id number] Feb, [facility] [place] [facility] [address]00565100[place] [address] Feb, [facility] [place] [address] [facility] [id number], [place] [id number] Feb, [facility] [place] [facility] [address] [facility] [id number] [place] [address] Feb, [facility] [place] [facility] [address] [facility] [id number] [place] [address] Feb, [facility] [place] [address] [facility] [id number], [place] [id number] Dec, [facility] [place] [facility] [address] [facility] [id number] [place] [address] Dec, [facility] [place] [address] [facility] [id number][place] [id number] Dec, [facility] [place] [facility] [address] [facility] [id number] [place] [address] Dec, [facility] [place] [address] [facility] [id number], [place] [id number] Dec, [facility] [place] [address] [facility] [id number], [place] 0947[address]454 Dec, [facility] [place] [facility] [address] [facility] [id number] [place] [address] Dec, [facility] [address] [facility] [id number] [place] [address] Dec, [facility] [place] [address] [id number] [place] [id number] Nov, [facility] [place] [address] [id number] [place] [id number] Nov, [facility] [place] [address] [id number] [place] [id number] Nov, [facility] [place] [address] [id number] [place] 424099612 Nov, [facility] [place] [address] [id number] [place] [id number] Oct, [facility] [place] [address] [id number] [place] [id number] Oct, [facility] [place] [address] [id number] [place] [id number] Oct, [facility] [address] [facility] [id number] [place] [address] Sep, [facility] [address] [facility] [id number] [place] [address] Sep, [facility] [place] [address] [id number] [place] [id number] Sep, [facility] [place] [address] [id number] [place] [id number] Sep, [facility] [address] [facility] [id number] [place] [address] Aug, [facility] [place] [address] [id number] [place] [id number] Aug, [facility] [place] [address] [id number] [place] 955201746 July, [facility] [place] [address] [id number] [place] [id number] Jun, [facility] [place] [address] [id number], [place] 818560086 Jun, [facility] [place] [address] [id number] [place] [id number] May, [facility] [place] [address] [id number] [place] [id number] May, [facility] [place] [address] [id number] [place] 823841089 May, [facility] [place] [address] [id number] [place] [id number] May, [facility] [place] [address] [id number] [place] 417814596 May, [facility] [place] [address] [id number] [place] [address] May, [facility] [place] [facility] [address] [facility] [id number] [place] [address] Apr, [facility] [place] [address] [id number], [place] 370162224 Apr, [facility] [place] [address] [id number], [place] 4518[address]210 Apr, [facility] [place] [facility] [address]00565100[place] [address] Apr, [facility] [place] [facility] [address]00565100[place] [address] Apr, [facility] [place] [address] [facility] [id number], [place] [id number] Apr, [facility] [place] [address] [facility] [id number][place] [id number] Jan, [facility] [place] [facility] [address] [facility] [id number] [place] [address] Jan, [facility] [place] [address] [facility] [id number], [place] [id number] Jan, [facility] [place] [facility] [address]00565100[place] [address] Jan, [facility] [place] [address] [facility] [id number], [place] [id number] 16 Dec, 2011 [facility] [place] [facility] [address] [facility] [id number] [place] [address] Dec, [facility] [place] [address] [id number] [place] [id number] Nov, [facility] [place] [address] [id number] [place] [id number] Oct, [facility] [place] [address] [id number] [place] [id number] Oct, [facility] [place] [address] [id number] [place] [id number] Oct, [facility] [place] [address] [id number] [place] 683[address]38[address] Sep, [facility] [place] [address] [id number] [place] [id number] July, [facility] [place] [address] [id number] [place] 3857[address] Jun, [facility] [place] [address] [id number] [place] [id number] Mar, [facility] [address]00565100[place] [address] Feb, [facility] [place] [facility] [id number] [place] [address] Feb, [facility] [id number] [place] [address] Jan, [facility] [place] [facility] [id number] [place] [address] Jan, [facility] [id number] [place] [address] Dec, [facility] [place] [facility] [id number] [place] [address] Dec, [facility] [place] [facility] [address] [id number] [address] May, [facility] [id number] [place] [address] Apr, IMMUNIZATIONS No Known Immunizations SOCIAL HISTORY Never Assessed REASON FOR VISIT RX-Effexor refill PLAN OF CARE VITAL SIGNS MEDICATIONS Medication Instructions Dosage Frequency Start Date End Date Duration Status Effexor XR 150 MG Orally Once a day 1 capsule with food 24h Active RESULTS No Results PROCEDURES No Known [...]
--- OUTSIDE RECORDS SUMMARY | 2018-09-07 13:04 | XMS REPORT ---
Author Author LUCY ROMERO [facility] Address [address] [place] [address] Care Team Providers Care Dynamics Ax Solution Architect Name Role Phone LUCY ROMERO Unavailable PROBLEMS Type Condition ICD9-CM Code RLK22-EE Code Onset Dates Condition Status SNOMED Code Problem Rhinitis, unspecified type J31.0 Active 75937372 Problem Anxiety F41.9 Active 98967814 Problem Primary osteoarthritis of right knee M17.11 Active 598566220 Problem Anemia, unspecified type D64.9 Active 824232457 Problem Acquired hypothyroidism E03.9 Active 447208535 Problem Gastroesophageal reflux disease without esophagitis K21.9 Active 384842244 ALLERGIES No Information ENCOUNTERS Encounter Location Date Diagnosis [place] [id number] [place] [address] [id number] Feb, Anxiety F41.[address] [id number] Feb, Medicare annual wellness visit, subsequent Z00.00 ; BMI 40.0-44.9, adult Z68.41 and Encounter for immunization Z23 [place] [id number] [place] [address] [id number] Feb, Anxiety F41.9 ; Acquired hypothyroidism E03.9 and BMI 40.0-44.9, adult Z68.41 [place] [id number] [place] [address] [id number] Jan, Acquired hypothyroidism E03.9 [place] [id number] [place] [address] [id number] Jan, Colon cancer screening Z12.11 [place] [id number] [place] [address] [id number] Dec, Anxiety F41.9 ; Acquired hypothyroidism E03.9 and Encounter for immunization Z23 [place] [id number] [place] [address] [id number] Oct, Anxiety F41.9 and Acquired hypothyroidism E03.9 [facility] [place] [id number] [place] [address] [id number] May, Anxiety F41.9 and Rhinitis, unspecified type J31.0 [facility] [place] [id number] [place] [address] [id number] Apr, [facility] [place] [id number] [place] [address] [id number] Mar, [facility] [place] [id number] [place] [address] [id number] Mar, [facility] [place] [id number] [place] [address] [id number] Nov, [facility] [place] [id number] [place] [address] [id number] Sep, [facility] [place] [id number] [place] [address] [id number] Sep, Vitamin B12 deficiency E53.8 [facility] [place] [id number] [place] [address] [id number] Sep, [facility] [place] [id number] [place] [address] [id number] July, Anemia, unspecified type D64.9 ; Acquired hypothyroidism E03.9 ; Primary osteoarthritis of right knee M17.11 ; Anxiety F41.9 and Gastroesophageal reflux disease without esophagitis K21.9 [facility] [place] [id number] [place] [address] [id number] July, [facility] [place] [id number] [place] [address] [id number] Apr, Other specified abdominal hernia without obstruction or gangrene K45.8 [facility] [place] [id number] [place] [address] [id number] Apr, [facility] [place] [id number] [place] [address] [id number] Apr, [facility] [place] [id number] [place] [address] [id number] Apr, Primary osteoarthritis of right knee M17.11 ; Poor diet E63.9 ; Morbid obesity due to excess calories E66.01 and Vitamin B12 deficiency E53.8 [facility] [place] [id number] [id number] Dec, Upper respiratory tract infection, unspecified upper respiratory infection J06.9 [facility] [place] [id number][place] [id number] Dec, Arthritis M19.90 and Hypothyroidism, unspecified E03.9 [facility] [place] [address] [id number] [place] [address] [id number] Nov, [facility] [id number] [place] [phone] Jun, [facility] [id number] [place] [phone] Jun, [facility] [place] [id number] [place] [address] [id number] Apr, [facility] [id number] [place] [address] Apr, [facility] [id number] [place] [phone] Mar, [facility] [place] [id number] [place] [address] [id number] Mar, [facility] [id number] [place] [phone] Mar, [facility] [id number] [place] [phone] Feb, [facility] [place] [id number][place] [id number] Feb, [facility] [id number] [place] [phone] Jan, [facility] [place] [id number] [id number] Jan, [facility] [id number] [place] [phone] Dec, [facility] [place] [address] [id number] [place] [id number] Dec, [facility] [place] [address] [id number] [place] [id number] Dec, [facility] [place] [facility] [address] [id number] [place] [address] Dec, [facility] [place] [address] [id number] [place] [id number] Nov, [facility] [place] [facility] [address] [id number] [place] [address] Nov, [facility] [place] [address] [id number] [place] [id number] Sep, [facility] [place] [facility] [address] [facility] [id number] [place] [address] Sep, [facility] [place] [address] [facility] [id number] [place] [id number] Sep, [facility] [place] [facility] [address] [facility] [id number][place] [address] Sep, [facility] [place] [facility] [address] [facility] [id number] [place] [address] Sep, [facility] [place] [facility] [address] [facility] [id number] [place] [address] Aug, [facility] [place] [facility] [address] [facility] [id number] [place] [address] Aug, [facility] [place] [address] [id number] [place] [id number] Aug, [facility] [place] [address] [id number] [place] [id number] July, [facility] [place] [facility] [address] [facility] [id number] [place] [address] July, [facility] [place] [address] [facility] [id number] [place] [id number] Jun, [facility] [place] [facility] [address] [facility] [id number] [place] [address] Jun, [facility] [place] [address] [id number] [place] [id number] Jun, [facility] [address] [facility] [id number] [place] [address] Jun, [facility] [place] [address] [id number] [place] [id number] Mar, [facility] [place] [facility] [address] [facility] [id number], [place] [address] Mar, [facility] [place] [facility] [address] [facility] [id number], [place] [address] Mar, [facility] [place] [address] [facility] [id number] [place] [id number] Feb, [facility] [place] [facility] [address] [facility] [id number], [place] [address] Feb, [facility] [place] [address] [facility] [id number][place] [id number] Feb, [facility] [place] [facility] [address] [facility] [id number], [place] [address] Feb, [facility] [place] [facility] [address] [facility] [id number], [place] [address] Feb, [facility] [place] [address] [facility] [id number][place] [id number] Dec, [facility] [place] [facility] [address] [facility] [id number], [place] [address] Dec, [facility] [place] [address] [facility] [id number][place] [id number] Dec, [facility] [place] [facility] [address] [facility] [id number][place] [address] Dec, [facility] [place] [address] [facility] [id number][place] [id number] Dec, [facility] [place] [address] [facility] [id number], [place] [id number] Dec, [facility] [place] [facility] [address] [facility] [id number], [place] [address] Dec, [facility] [address] [facility] [id number], [place] [address] 14 Dec, 2012 [facility] [place] [address] [id number] [place] [id number] Nov, [facility] [place] [address] [id number] [place] [id number] Nov, [facility] [place] [address] [id number] [place] [id number] Nov, [facility] [place] [address] [id number] [place] [id number] Nov, [facility] [place] [address] [id number] [place] [id number] Oct, [facility] [place] [address] [id number] [place] [id number] Oct, [facility] [place] [address] [id number] [place] [id number] Oct, [facility] [address] [facility] [id number], [place] [address] Sep, [facility] [address] [facility] [id number], [place] [address] Sep, [facility] [place] [address] [id number] [place] [id number] Sep, [facility] [place] [address] [id number] [place] [id number] Sep, [facility] [address] [facility] [id number], [place] [address] Aug, [facility] [place] [address] [id number] [place] [id number] Aug, [facility] [place] [address] [id number] [place] [address] July, [facility] [place] [address] [id number] [place] [id number] Jun, [facility] [place] [address] [id number] [place] [id number] Jun, [facility] [place] [address] [id number] [place] [id number] May, [facility] [place] [address] [id number] [place] [id number] May, [facility] [place] [address] [id number] [place] [address] May, [facility] [place] [address] [id number] [place] 734838403 May, [facility] [place] [address] [id number] [place] 8019350[address] May, [facility] [place] [address] [id number] [place] [id number] May, [facility] [place] [facility] [address] [facility] [id number], [place] [address] Apr, [facility] [place] [address] [id number] [place] [id number] Apr, [facility] [place] [address] [id number] [place] 845603899 Apr, [facility] [place] [facility] [address]005[place] [address] Apr, [facility] [place] [facility] [address]00565100[place], [place] [address] Apr, [facility] [place] [address] [facility] [id number][place] [id number] Apr, [facility] [place] [address] [facility] [id number][place] [id number] Jan, [facility] [place] [facility] [address] [facility] [id number], [place] [address] Jan, [facility] [place] [address] [facility] [id number][place] 528[address] Jan, [facility] [place] [facility] [address] [facility] [id number], [place] [address] Jan, [facility] [place] [address] [facility] [id number], [place] [id number] Dec, [facility] [place] [facility] [address]00565[address], [place] [address] Dec, [facility] [place] [address] [id number] [place] [address]46[address] Nov, [facility] [place] [address] [id number] [place] [id number] Oct, [facility] [place] [address] [id number] [place] [id number] Oct, [facility] [place] [address] [id number] [place] [id number] Oct, [facility] [place] [address] [id number] [place] [id number] Sep, [facility] [place] [address] [id number] [place] [id number] July, [facility] [place] [address] [id number] [place] [id number] Jun, [facility] [place] [address] [id number] [place] [id number] Mar, [facility] [id number] [place] [address] Feb, [facility] [id number] [place] [address] Feb, [facility] [id number] [place] [address] Jan, [facility] [address] [id number] [place] [address] Jan, [facility] [id number] [place] [address] Dec, [facility] [address] [place] [address] Dec, [facility] [id number] [place] [address] May, [facility] [address] [address] Apr, IMMUNIZATIONS No Known Immunizations SOCIAL HISTORY Never Assessed REASON FOR VISIT [facility] PLAN OF CARE VITAL SIGNS MEDICATIONS Unknown Medications RESULTS Name Result Date Reference Range HEMOCCULT (IN HOUSE) 2017-01-17 RESULTS negative Control + Lot # [id number] Exp date 08/30/18 HEMOCCULT (IN HOUSE)-Additional 2017-01-17 RESULTS negative Control + Lot # [id number] Exp Date 08/30/18 PROCEDURES Procedure Date Ordered Result Body Site TEST FOR BLOOD, FECES Jan 17, 2017 INSTRUCTIONS MEDICATIONS ADMINISTERED No Known Medications MEDICAL [...]
--- OUTSIDE RECORDS SUMMARY | 2018-09-07 13:04 | XMS REPORT ---
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 Name Role Phone LUCY ROMERO Unavailable PROBLEMS Type Condition ICD9-CM Code XNG68-EM Code Onset Dates Condition Status SNOMED Code Problem Pain in joint, site unspecified 719.40 Active 11742077 Problem Acute bronchitis 466.0 Active 19967478 Problem Blood in stool 578.1 Active 571498124 Problem Rhinitis, unspecified type J31.0 Active 26420436 Problem Anxiety F41.9 Active 57342195 Problem Primary osteoarthritis of right knee M17.11 Active 839788068 Problem Anemia, unspecified type D64.9 Active 617942111 Problem Acquired hypothyroidism E03.9 Active 934867298 Problem Gastroesophageal reflux disease without esophagitis K21.9 Active 028670262 Problem Screening for malignant neoplasm of the cervix V76.2 Active 179754823 Problem Hip, thigh, leg, and ankle, insect bite, nonvenomous, without mention of infection 916.4 Active 1278559 Problem Unspecified abnormal mammogram 793.80 Active 684201799 Problem Unspecified breast screening V76.10 Active 245625775 Problem Other malaise and fatigue 780.79 Active 115225976 Problem Special screening examination, human papillomavirus [HPV] V73.81 Active 504364714 Problem Pain in joint, upper arm 719.42 Active 563999488 ALLERGIES Substance Reaction Event Type Date Status Mobic GI bleed Drug Allergy May, Active Aleve GI bleed Drug Allergy May, Active SOCIAL HISTORY Never Assessed PLAN OF CARE Activity Details Follow Up 3 Months Reason:anxity VITAL SIGNS Height 68 in 2016-05-18 Weight 285.2 lbs 2016-05-18 Temperature 97.4 degrees Fahrenheit 2016-05-18 Heart Rate 72 bpm 2016-05-18 Respiratory Rate 16 2016-05-18 BMI 43.36 kg/m2 2016-05-18 Blood pressure systolic 132 mmHg 2016-05-18 Blood pressure diastolic 68 mmHg 2016-05-18 MEDICATIONS Medication Instructions Dosage Frequency Start Date End Date Duration Status Biotin 400 MCG Active Glucosamine Sulfate 500 mg 1 capsule by Oral route 2 times per day Jan, Active Vitamin B12 1000 MCG Orally Once a day 1 tablet 24h Active Calcium Citrate 500 MG Active Effexor XR 75 MG Orally Once a day 1 capsule with food 24h Active Vitamin C 500 MG Active Pantoprazole Sodium 40 MG Orally Once a day 1 tablet 24h Active Potassium 99 MG Orally Once a day 1 tablet 24h Active Vitamin E 200 UNIT Orally Once a day 1 capsule 24h Active Claritin 10 mg Orally Once a day 1 tablet 24h May, Active Synthroid 50 TAKE ONE TABLET BY MOUTH ONCE A DAY ON AN EMPTY STOMACH 30 Active Multivitamin Dec, Active Vitamin D3 1000 UNIT Orally Once a day 1 capsule 24h Active RESULTS No Results PROCEDURES No [...]
--- OUTSIDE RECORDS SUMMARY | 2018-09-07 13:06 | XMS REPORT | Continuity of Care Document ---
Demographics Preferred Language Unknown Marital Status Unknown Yazidism Affiliation Unknown Race Unknown Ethnic Group Unknown Author Organization Unknown Address Unknown Allergies Active Description Code Type Severity Reaction Onset Reported/Identified Relationship to Patient Clinical Status Yes IVP DYE [id number] DRUG N/A N/A Yes SHELLFISH [id number] FOOD N/A N/A Yes STRAWBERRIES [id number] FOOD N/A N/A Yes [place] flavoring Food Allergy N/A N/A 04/06/2009 Yes [place] flavoring Food Allergy 04/06/2009 Yes strawberry [id number] Drug Allergy Unknown N/A 01/01/2011 Yes shellfish derived [id number] Drug Allergy Mild N/A 05/25/2012 Yes Mobic 7.5 mg tablet Drug Allergy N/A N/A 06/06/2012 Yes Mobic 7.5 mg tablet Drug Allergy 06/06/2012 Yes Estrogens [id number] Drug Allergy Unknown N/A 05/17/2015 Yes NSAIDS (Non-Steroidal Anti-Inflamma [id number] Drug Allergy Unknown HAS HAD GASTRIC 05/17/2015 Medications There is no data. Problems Date Dx Coded Attending Type Code Diagnosis Diagnosed By 04/06/2009 TOMER ARRINGTON MD 465.9 ACUTE UPPER RESPIRATORY INFECTIONS OF UNSPECIFIED SITE 04/06/2009 TOMER ARRINGTON MD 465.9 ACUTE UPPER RESPIRATORY INFECTIONS OF UNSPECIFIED SITE 04/06/2009 TOMER ARRINGTON MD 465.9 ACUTE UPPER RESPIRATORY INFECTIONS OF UNSPECIFIED SITE 04/06/2009 465.9 ACUTE UPPER RESPIRATORY INFECTIONS OF UNSPECIFIED SITE 04/06/2009 465.9 ACUTE UPPER RESPIRATORY INFECTIONS OF UNSPECIFIED SITE 04/06/2009 465.9 ACUTE UPPER RESPIRATORY INFECTIONS OF UNSPECIFIED SITE 04/06/2009 465.9 ACUTE UPPER RESPIRATORY INFECTIONS OF UNSPECIFIED SITE 04/06/2009 AYLIN VERDUGO DO 465.9 ACUTE UPPER RESPIRATORY INFECTIONS OF UNSPECIFIED SITE 04/06/2009 AYLIN VERDUGO DO 465.9 ACUTE UPPER RESPIRATORY INFECTIONS OF UNSPECIFIED SITE 04/06/2009 TOMER ARRINGTON MD 465.9 ACUTE UPPER RESPIRATORY INFECTIONS OF UNSPECIFIED SITE 04/06/2009 AYLIN VERDUGO DO 465.9 ACUTE UPPER RESPIRATORY INFECTIONS OF UNSPECIFIED SITE 04/06/2009 VERDUGO DO, AYLIN K 465.9 ACUTE UPPER RESPIRATORY INFECTIONS OF UNSPECIFIED SITE 04/06/2009 VERDUGO DO, AYLIN K 465.9 ACUTE UPPER RESPIRATORY INFECTIONS OF UNSPECIFIED SITE 04/06/2009 MICHAEL GARZA APRN 465.9 ACUTE UPPER RESPIRATORY INFECTIONS OF UNSPECIFIED SITE 04/06/2009 LUCY ROMERO APRN 465.9 ACUTE UPPER RESPIRATORY INFECTIONS OF UNSPECIFIED SITE 04/06/2009 LUCINA CENTENO AYLIN K 465.9 ACUTE UPPER RESPIRATORY INFECTIONS OF UNSPECIFIED SITE 04/29/2009 TOMER ARRINGTON MD 244.9 HYPOTHYROIDISM 04/29/2009 TOMER ARRINGTON MD 278.00 OBESITY 04/29/2009 TOMER ARRINGTON MD 244.9 HYPOTHYROIDISM 04/29/2009 TOMER ARRINGTON MD 278.00 OBESITY 04/29/2009 TOMER ARRINGTON MD 244.9 HYPOTHYROIDISM 04/29/2009 TOMER ARRINGTON MD 278.00 OBESITY 04/29/2009 244.9 HYPOTHYROIDISM 04/29/2009 278.00 OBESITY 04/29/2009 244.9 HYPOTHYROIDISM 04/29/2009 278.00 OBESITY 04/29/2009 244.9 HYPOTHYROIDISM 04/29/2009 278.00 OBESITY 04/29/2009 244.9 HYPOTHYROIDISM 04/29/2009 278.00 OBESITY 04/29/2009 VERDUGO DO, AYLIN K 244.9 HYPOTHYROIDISM 04/29/2009 VERDUGO DO, AYLIN K 278.00 OBESITY 04/29/2009 VERDUGO DO, AYLIN K 244.9 HYPOTHYROIDISM 04/29/2009 VERDUGO DO, AYLIN K 278.00 OBESITY 04/29/2009 TOMER ARRINGTON MD 244.9 HYPOTHYROIDISM 04/29/2009 TOMER ARRINGTON MD 278.00 OBESITY 04/29/2009 VERDUGO DO, AYLIN K 244.9 HYPOTHYROIDISM 04/29/2009 VERDUOG DO, AYLIN K 278.00 OBESITY 04/29/2009 VERDUGO DO, AYLIN K 244.9 HYPOTHYROIDISM 04/29/2009 VERDUGO DO, AYLIN K 278.00 OBESITY 04/29/2009 VERDUGO DO, AYLIN K 244.9 HYPOTHYROIDISM 04/29/2009 VERDUGO DO, AYLIN K 278.00 OBESITY 04/29/2009 MICHAEL GARZA APRN E 244.9 HYPOTHYROIDISM 04/29/2009 MICHAEL GARZA APRN E 278.00 OBESITY 04/29/2009 LUCY ROMERO APRN 244.9 HYPOTHYROIDISM 04/29/2009 LUCY ROMERO APRN 278.00 OBESITY 04/29/2009 AYLIN VERDUGO DO 244.9 HYPOTHYROIDISM 04/29/2009 AYLIN VERDUGO DO K 278.00 OBESITY 05/26/2009 TOMER ARRINGTON MD V72.31 Cervix Sample Taken For Pap Smear 05/26/2009 TOMER ARRINGTON MD V72.31 Cervix Sample Taken For Pap Smear 05/26/2009 TOMER ARRINGTON MD V72.31 Cervix Sample Taken For Pap Smear 05/26/2009 V72.31 Cervix Sample Taken For Pap Smear 05/26/2009 V72.31 Cervix Sample Taken For Pap Smear 05/26/2009 V72.31 Cervix Sample Taken For Pap Smear 05/26/2009 V72.31 Cervix Sample Taken For Pap Smear 05/26/2009 AYLIN VERDUGO DO V72.31 Cervix Sample Taken For Pap Smear 05/26/2009 AYLIN VERDUGO DO V72.31 Cervix Sample Taken For Pap Smear 05/26/2009 TOMER ARRINGTON MD V72.31 Cervix Sample Taken For Pap Smear 05/26/2009 AYLIN VERDUGO DO V72.31 Cervix Sample Taken For Pap Smear 05/26/2009 YIN VERDUGO DOA K V72.31 Cervix Sample Taken For Pap Smear 05/26/2009 AYLIN VERDUGO DO K V72.31 Cervix Sample Taken For Pap Smear 05/26/2009 MICHAEL GARZA APRN V72.31 Cervix Sample Taken For Pap Smear 05/26/2009 LUCY ROMERO APRN V72.31 Cervix Sample Taken For Pap Smear 05/26/2009 AYLIN VERDUGO DO V72.31 Cervix Sample Taken For Pap Smear 06/07/2010 TOMER ARRINGTON MD 266.2 VITAMIN B12 DEFICIENCY 06/07/2010 TOMER ARRINGTON MD 780.52 insomnia 06/07/2010 TOMER ARRINGTON MD 266.2 VITAMIN B12 DEFICIENCY 06/07/2010 TOMER ARRINGTON MD 780.52 insomnia 06/07/2010 TOMER ARRINGTON MD 266.2 VITAMIN B12 DEFICIENCY 06/07/2010 TOMER ARRINGTON MD 780.52 insomnia 06/07/2010 266.2 VITAMIN B12 DEFICIENCY 06/07/2010 780.52 insomnia 06/07/2010 266.2 VITAMIN B12 DEFICIENCY 06/07/2010 780.52 insomnia 06/07/2010 266.2 VITAMIN B12 DEFICIENCY 06/07/2010 780.52 insomnia 06/07/2010 266.2 VITAMIN B12 DEFICIENCY 06/07/2010 780.52 insomnia 06/07/2010 VERDUGO DO, AYLIN K 266.2 VITAMIN B12 DEFICIENCY 06/07/2010 VERDUGO DO, AYLIN K 780.52 insomnia 06/07/2010 VERDUGO DO, AYLIN K 266.2 VITAMIN B12 DEFICIENCY 06/07/2010 VERDUGO DO, AYLIN K 780.52 insomnia 06/07/2010 TOMER ARRINGTON MD 266.2 VITAMIN B12 DEFICIENCY 06/07/2010 TOMER ARRINGTON MD 780.52 insomnia 06/07/2010 VERDUGO DO, AYLIN K 266.2 VITAMIN B12 DEFICIENCY 06/07/2010 VERDUGO DO, AYLIN K 780.52 insomnia 06/07/2010 VERDUGO DO, AYLIN K 266.2 VITAMIN B12 DEFICIENCY 06/07/2010 VERDUGO DO, AYLIN K 780.52 insomnia 06/07/2010 VERDUGO DO, AYLIN K 266.2 VITAMIN B12 DEFICIENCY 06/07/2010 VERDUGO DO, AYLIN K 780.52 insomnia 06/07/2010 MICHAEL GARZA APRN 266.2 VITAMIN B12 DEFICIENCY 06/07/2010 MICHAEL GARZA APRN E 780.52 insomnia 06/07/2010 LUCY ROMERO APRN 266.2 VITAMIN B12 DEFICIENCY 06/07/2010 LUCY ROMERO APRN 780.52 insomnia 06/07/2010 VERDUGO DO, AYLIN K 266.2 VITAMIN B12 DEFICIENCY 06/07/2010 VERDUGO DO, AYLIN K 780.52 insomnia 07/06/2010 TOMER ARRINGTON MD 461.9 ACUTE SINUSITIS UNSPECIFIED 07/06/2010 TOMER ARRINGTON MD 786.2 COUGH 07/06/2010 TOMER ARRINGTON MD 461.9 ACUTE SINUSITIS UNSPECIFIED 07/06/2010 TOMER ARRINGTON MD 786.2 COUGH 07/06/2010 TOMER ARRINGTON MD 461.9 ACUTE SINUSITIS UNSPECIFIED 07/06/2010 TOMER ARRINGTON MD 786.2 COUGH 07/06/2010 461.9 ACUTE SINUSITIS UNSPECIFIED 07/06/2010 786.2 COUGH 07/06/2010 461.9 ACUTE SINUSITIS UNSPECIFIED 07/06/2010 786.2 COUGH 07/06/2010 461.9 ACUTE SINUSITIS UNSPECIFIED 07/06/2010 786.2 COUGH 07/06/2010 461.9 ACUTE SINUSITIS UNSPECIFIED 07/06/2010 786.2 COUGH 07/06/2010 VERDUGO DO, AYLIN K 461.9 ACUTE SINUSITIS UNSPECIFIED 07/06/2010 VERDUGO DO, AYLIN K 786.2 COUGH 07/06/2010 VERDUGO DO, AYLIN K 461.9 ACUTE SINUSITIS UNSPECIFIED 07/06/2010 VERDUGO DO, AYLIN K 786.2 COUGH 07/06/2010 TOMER ARRINGTON MD 461.9 ACUTE SINUSITIS UNSPECIFIED 07/06/2010 TOMER ARRINGTON MD 786.2 COUGH 07/06/2010 VERDUGO DO, AYLIN K 461.9 ACUTE SINUSITIS UNSPECIFIED 07/06/2010 VERDUGO DO, AYLIN K 786.2 COUGH 07/06/2010 VERDUGO DO, AYLIN K 461.9 ACUTE SINUSITIS UNSPECIFIED 07/06/2010 VERDUGO DO, AYLIN K 786.2 COUGH 07/06/2010 VERDUGO DO, AYLIN K 461.9 ACUTE SINUSITIS UNSPECIFIED 07/06/2010 VERDUGO DO, AYLIN K 786.2 COUGH 07/06/2010 MICHAEL GARZA APRN 461.9 ACUTE SINUSITIS UNSPECIFIED 07/06/2010 MICHAEL GARZA APRN 786.2 COUGH 07/06/2010 LUCY ROMERO APRN 461.9 ACUTE SINUSITIS UNSPECIFIED 07/06/2010 LUCY ROMERO APRN 786.2 COUGH 07/06/2010 VERDUGO DO, AYLIN K 461.9 ACUTE SINUSITIS UNSPECIFIED 07/06/2010 VERDUGO DO, AYLIN K 786.2 COUGH 01/04/2011 Ot 244.9 HYPOTHYROIDISM NOS 01/04/2011 Ot 250.00 DIAB IDA WO COMPL, TYPE II OR UNSPEC TY 01/04/2011 Ot 285.9 ANEMIA NOS 01/04/2011 Ot 311 DEPRESSIVE DISORDER NEC 01/04/2011 Ot 530.10 ESOPHAGITIS NOS 01/04/2011 Ot 578.9 GASTROINTEST HEMORR NOS 01/04/2011 Ot 715.90 OSTEOARTHROS NOS-UNSPEC 01/04/2011 Ot V45.86 BARIATRIC SURGERY STATUS 01/06/2011 TOMER ARRINGTON MD 285.1 ACUTE POSTHEMORRHAGIC ANEMIA 01/06/2011 TOMER ARRINGTON MD 285.1 ACUTE POSTHEMORRHAGIC ANEMIA 01/06/2011 TOMER ARRINGTON MD 285.1 ACUTE POSTHEMORRHAGIC ANEMIA 01/06/2011 285.1 ACUTE POSTHEMORRHAGIC ANEMIA 01/06/2011 285.1 ACUTE POSTHEMORRHAGIC ANEMIA 01/06/2011 285.1 ACUTE POSTHEMORRHAGIC ANEMIA 01/06/2011 285.1 ACUTE POSTHEMORRHAGIC ANEMIA 01/06/2011 VERDUGO DO, AYLIN K 285.1 ACUTE POSTHEMORRHAGIC ANEMIA 01/06/2011 VERDUGO DO, AYLIN K 285.1 ACUTE POSTHEMORRHAGIC ANEMIA 01/06/2011 TOMER ARRINGTON MD 285.1 ACUTE POSTHEMORRHAGIC ANEMIA 01/06/2011 VERDUGO DO, AYLIN K 285.1 ACUTE POSTHEMORRHAGIC ANEMIA 01/06/2011 VERDUGO DO, AYLIN K 285.1 ACUTE POSTHEMORRHAGIC ANEMIA 01/06/2011 VERDUGO DO, AYLIN K 285.1 ACUTE POSTHEMORRHAGIC ANEMIA 01/06/2011 MICHAEL GARZA APRN 285.1 ACUTE POSTHEMORRHAGIC ANEMIA 01/06/2011 LUCY ROMERO APRN 285.1 ACUTE POSTHEMORRHAGIC ANEMIA 01/06/2011 VERDUGO DO, AYLIN K 285.1 ACUTE POSTHEMORRHAGIC ANEMIA 01/18/2011 TOMER ARRINGTON MD 719.46 joint pain, localized in the knee 01/18/2011 TOMER ARRINGTON MD 719.46 joint pain, localized in the knee 01/18/2011 TOMER ARRINGTON MD 719.46 joint pain, localized in the knee 01/18/2011 719.46 joint pain, localized in the knee 01/18/2011 719.46 joint pain, localized in the knee 01/18/2011 719.46 joint pain, localized in the knee 01/18/2011 719.46 joint pain, localized in the knee 01/18/2011 LUCINA DO, AYLIN K 719.46 joint pain, localized in the knee 01/18/2011 LUCINA DO AYLIN K 719.46 joint pain, localized in the knee 01/18/2011 TOMER ARRINGTON MD 719.46 joint pain, localized in the knee 01/18/2011 VERDUGO DO, AYLIN K 719.46 joint pain, localized in the knee 01/18/2011 VERDUGO DO, AYLIN K 719.46 joint pain, localized in the knee 01/18/2011 VERDUGO DO, AYLIN K 719.46 joint pain, localized in the knee 01/18/2011 MICHAEL GARZA APRN 719.46 joint pain, localized in the knee 01/18/2011 LUCY ROMERO APRN 719.46 joint pain, localized in the knee 01/18/2011 VERDUGO DO, AYLIN K 719.46 joint pain, localized in the knee 2011 TOMER ARRINGTON MD 285.9 ANEMIA 2011 TOMER ARRINGTON MD 715.16 OSTEOARTHRITIS LOCALIZED PRIMARY - KNEE RIGHT 2011 TOMER ARRINGTON MD 285.9 ANEMIA 2011 TOMER ARRINGTON MD 715.16 OSTEOARTHRITIS LOCALIZED PRIMARY - KNEE RIGHT 2011 TOMER ARRINGTON MD 285.9 ANEMIA 2011 TOMER ARRINGTON MD 715.16 OSTEOARTHRITIS LOCALIZED PRIMARY - KNEE RIGHT 2011 285.9 ANEMIA 2011 715.16 OSTEOARTHRITIS LOCALIZED PRIMARY - KNEE RIGHT 2011 285.9 ANEMIA 2011 715.16 OSTEOARTHRITIS LOCALIZED PRIMARY - KNEE RIGHT 2011 285.9 ANEMIA 2011 715.16 OSTEOARTHRITIS LOCALIZED PRIMARY - KNEE RIGHT 2011 285.9 ANEMIA 2011 715.16 OSTEOARTHRITIS LOCALIZED PRIMARY - KNEE RIGHT 2011 VERDUGO DO, AYLIN K 285.9 ANEMIA 2011 VERDUGO DO AYLIN K 715.16 OSTEOARTHRITIS LOCALIZED PRIMARY - KNEE RIGHT 2011 VERDUGO DO, AYLIN K 285.9 ANEMIA 2011 VERDUGO DO AYLIN K 715.16 OSTEOARTHRITIS LOCALIZED PRIMARY - KNEE RIGHT 2011 TOMER ARRINGTON MD 285.9 ANEMIA 2011 TOMER ARRINGTON MD 715.16 OSTEOARTHRITIS LOCALIZED PRIMARY - KNEE RIGHT 2011 VERDUGO DO, AYLIN K 285.9 ANEMIA 2011 VERDUGO DO, AYLIN K 715.16 OSTEOARTHRITIS LOCALIZED PRIMARY - KNEE RIGHT 2011 VERDUGO DO, AYLIN K 285.9 ANEMIA 2011 VERDUGO DO, AYLIN K 715.16 OSTEOARTHRITIS LOCALIZED PRIMARY - KNEE RIGHT 2011 VERDUGO DO, AYLIN K 285.9 ANEMIA 2011 VERDUGO DO, AYLIN K 715.16 OSTEOARTHRITIS LOCALIZED PRIMARY - KNEE RIGHT 2011 MICHAEL GARZA APRN 285.9 ANEMIA 2011 MICHAEL GARZA APRN 715.16 OSTEOARTHRITIS LOCALIZED PRIMARY - KNEE RIGHT 2011 LUCY ROMERO APRN 285.9 ANEMIA 2011 LUCY ROMERO APRN 715.16 OSTEOARTHRITIS LOCALIZED PRIMARY - KNEE RIGHT 2011 AYLIN VERDUGO DO 285.9 ANEMIA 2011 AYLIN VERDUGO DO 715.16 OSTEOARTHRITIS LOCALIZED PRIMARY - KNEE RIGHT 06/20/2011 TOMER ARRINGTON MD 916.4 SUPERFICIAL INJURY - NONVENOMOUS INSECT BITE OF LEFT ANKLE 06/20/2011 TOMER ARRINGTON MD 916.4 SUPERFICIAL INJURY - NONVENOMOUS INSECT BITE OF LEFT ANKLE 06/20/2011 TOMER ARRINGTON MD 916.4 SUPERFICIAL INJURY - NONVENOMOUS INSECT BITE OF LEFT ANKLE 06/20/2011 916.4 SUPERFICIAL INJURY - NONVENOMOUS INSECT BITE OF LEFT ANKLE 06/20/2011 916.4 SUPERFICIAL INJURY - NONVENOMOUS INSECT BITE OF LEFT ANKLE 06/20/2011 916.4 SUPERFICIAL INJURY - NONVENOMOUS INSECT BITE OF LEFT ANKLE 06/20/2011 916.4 SUPERFICIAL INJURY - NONVENOMOUS INSECT BITE OF LEFT ANKLE 06/20/2011 AYLIN VERDUGO DO K 916.4 SUPERFICIAL INJURY - NONVENOMOUS INSECT BITE OF LEFT ANKLE 06/20/2011 YIN VERDUGO DOA K 916.4 SUPERFICIAL INJURY - NONVENOMOUS INSECT BITE OF LEFT ANKLE 06/20/2011 TOMER ARRINGTON MD 916.4 SUPERFICIAL INJURY - NONVENOMOUS INSECT BITE OF LEFT ANKLE 06/20/2011 YIN VERDUGO DOA K 916.4 SUPERFICIAL INJURY - NONVENOMOUS INSECT BITE OF LEFT ANKLE 06/20/2011 YIN VERDUGO DOA K 916.4 SUPERFICIAL INJURY - NONVENOMOUS INSECT BITE OF LEFT ANKLE 06/20/2011 YIN VERDUGO DOA K 916.4 SUPERFICIAL INJURY - NONVENOMOUS INSECT BITE OF LEFT ANKLE 06/20/2011 MICHAEL GARZA APRN 916.4 SUPERFICIAL INJURY - NONVENOMOUS INSECT BITE OF LEFT ANKLE 06/20/2011 LUCY ROMERO APRN 916.4 SUPERFICIAL INJURY - NONVENOMOUS INSECT BITE OF LEFT ANKLE 06/20/2011 AYLIN VERDUGO DO 916.4 SUPERFICIAL INJURY - NONVENOMOUS INSECT BITE OF LEFT ANKLE 01/23/2012 TOMER ARRINGTON MD 780.79 FATIGUE 01/23/2012 TOMER ARRINGTON MD 780.79 FATIGUE 01/23/2012 TOMER ARRINGTON MD 780.79 FATIGUE 01/23/2012 780.79 FATIGUE 01/23/2012 780.79 FATIGUE 01/23/2012 780.79 FATIGUE 01/23/2012 780.79 FATIGUE 01/23/2012 YIN VERDUGO DOA K 780.79 FATIGUE 01/23/2012 VERDUGO DO AYLIN K 780.79 FATIGUE 01/23/2012 TOMER ARRINGTON MD 780.79 FATIGUE 01/23/2012 VERDUGO YIN CENTENOA K 780.79 FATIGUE 01/23/2012 VERDUGO YIN CENTENOA K 780.79 FATIGUE 01/23/2012 VERDUGO YIN CENTENOA K 780.79 FATIGUE 01/23/2012 MICHAEL GARZA APRN 780.79 FATIGUE 01/23/2012 LUCY ROMERO APRN 780.79 FATIGUE 01/23/2012 YIN VERDUGO DOA K 780.79 FATIGUE 04/25/2012 TOMER ARRINGTON MD 719.40 ARTHRALGIA 04/25/2012 TOMER ARRINGTON MD V76.10 visit for: screening exam malignant neoplasm breast 04/25/2012 TOMER ARRINGTON MD V76.2 Cervical Pap Smear 04/25/2012 TOMER ARRINGTON MD 719.40 ARTHRALGIA 04/25/2012 TOMER ARRINGTON MD V76.10 visit for: screening exam malignant neoplasm breast 04/25/2012 TOMER ARRINGTON MD V76.2 Cervical Pap Smear 04/25/2012 TOMER ARRINGTON MD 719.40 ARTHRALGIA 04/25/2012 TOMER ARRINGTON MD V76.10 visit for: screening exam malignant neoplasm breast 04/25/2012 TOMER ARRINGTON MD V76.2 Cervical Pap Smear 04/25/2012 719.40 ARTHRALGIA 04/25/2012 V76.10 visit for: screening exam malignant neoplasm breast 04/25/2012 V76.2 Cervical Pap Smear 04/25/2012 719.40 ARTHRALGIA 04/25/2012 V76.10 visit for: screening exam malignant neoplasm breast 04/25/2012 V76.2 Cervical Pap Smear 04/25/2012 719.40 ARTHRALGIA 04/25/2012 V76.10 visit for: screening exam malignant neoplasm breast 04/25/2012 V76.2 Cervical Pap Smear 04/25/2012 719.40 ARTHRALGIA 04/25/2012 V76.10 visit for: screening exam malignant neoplasm breast 04/25/2012 V76.2 Cervical Pap Smear 04/25/2012 VERDUGO DO AYLIN K 719.40 ARTHRALGIA 04/25/2012 VERDUGO YIN CENTENOA K V76.10 visit for: screening exam malignant neoplasm breast 04/25/2012 VERDUGO DO AYLIN K V76.2 Cervical Pap Smear 04/25/2012 VERDUGO DO AYLIN K 719.40 ARTHRALGIA 04/25/2012 VERDUGO DO AYLIN K V76.10 visit for: screening exam malignant neoplasm breast 04/25/2012 LUCINA CENTENO AYLIN K V76.2 Cervical Pap Smear 04/25/2012 VERDUGO DO AYLIN K 719.40 ARTHRALGIA 04/25/2012 YIN VEDRUGO DOA K V76.10 visit for: screening exam malignant neoplasm breast 04/25/2012 LUCINA CENTENO AYLIN K V76.2 Cervical Pap Smear 04/25/2012 VERDUGO DO AYLIN K 719.40 ARTHRALGIA 04/25/2012 VERDUGO DO AYLIN K V76.10 visit for: screening exam malignant neoplasm breast 04/25/2012 LUCINA CENTENO AYLIN K V76.2 Cervical Pap Smear 04/25/2012 VERDUGO DO AYLIN K 719.40 ARTHRALGIA 04/25/2012 VERDUGO YIN CENTENOA K V76.10 visit for: screening exam malignant neoplasm breast 04/25/2012 LUCINA CENTENO AYLIN K V76.2 Cervical Pap Smear 04/25/2012 MICHAEL GARZA APRN 719.40 ARTHRALGIA 04/25/2012 MICHAEL GARZA APRN E V76.10 visit for: screening exam malignant neoplasm breast 04/25/2012 MICHAEL GARZA APRN V76.2 Cervical Pap Smear 04/25/2012 LUCY ROMERO APRN 719.40 ARTHRALGIA 04/25/2012 LUCY ROMERO APRN V76.10 visit for: screening exam malignant neoplasm breast 04/25/2012 LUCY ROMERO APRN V76.2 Cervical Pap Smear 04/25/2012 AYLIN VERDUGO DO 719.40 ARTHRALGIA 04/25/2012 AYLIN VERDUGO DO V76.10 visit for: screening exam malignant neoplasm breast 04/25/2012 AYLIN VERDUGO DO V76.2 Cervical Pap Smear 05/28/2012 Ot 244.9 HYPOTHYROIDISM NOS 05/28/2012 Ot 285.1 AC POSTHEMORRHAG ANEMIA 05/28/2012 Ot 311 DEPRESSIVE DISORDER NEC 05/28/2012 Ot 578.1 BLOOD IN STOOL 05/28/2012 Ot 715.90 OSTEOARTHROS NOS-UNSPEC 05/28/2012 Ot V45.86 BARIATRIC SURGERY STATUS 06/06/2012 TOMER ARRINGTON MD 578.1 red blood in bowel movement (hematochezia) 06/06/2012 TOMER ARRINGTON MD 719.42 ARTHRALGIA - HUMERUS / ELBOW LEFT 06/06/2012 578.1 red blood in bowel movement (hematochezia) 06/06/2012 719.42 ARTHRALGIA - HUMERUS / ELBOW LEFT 06/06/2012 578.1 red blood in bowel movement (hematochezia) 06/06/2012 719.42 ARTHRALGIA - HUMERUS / ELBOW LEFT 06/06/2012 578.1 red blood in bowel movement (hematochezia) 06/06/2012 719.42 ARTHRALGIA - HUMERUS / ELBOW LEFT 06/06/2012 578.1 red blood in bowel movement (hematochezia) 06/06/2012 719.42 ARTHRALGIA - HUMERUS / ELBOW LEFT 06/06/2012 AYLIN VERDUGO DO 578.1 red blood in bowel movement (hematochezia) 06/06/2012 AYLIN VERDUGO DO 719.42 ARTHRALGIA - HUMERUS / ELBOW LEFT 06/06/2012 AYLIN VERDUGO DO 578.1 red blood in bowel movement (hematochezia) 06/06/2012 AYLIN VERDUGO DO 719.42 ARTHRALGIA - HUMERUS / ELBOW LEFT 06/06/2012 AYLIN VERDUGO DO 578.1 red blood in bowel movement (hematochezia) 06/06/2012 AYLIN VERDUGO DO 719.42 ARTHRALGIA - HUMERUS / ELBOW LEFT 06/06/2012 VERDUGO DO, AYLIN K 578.1 red blood in bowel movement (hematochezia) 06/06/2012 VERDUGO DO, AYLIN K 719.42 ARTHRALGIA - HUMERUS / ELBOW LEFT 06/06/2012 VERDUGO DO, AYLIN K 578.1 red blood in bowel movement (hematochezia) 06/06/2012 VERDUGO DO, AYLIN K 719.42 ARTHRALGIA - HUMERUS / ELBOW LEFT 06/06/2012 MICHAEL GARZA APRN 578.1 red blood in bowel movement (hematochezia) 06/06/2012 MICHAEL GARZA APRN 719.42 ARTHRALGIA - HUMERUS / ELBOW LEFT 06/06/2012 LUCY ROMERO APRN 578.1 red blood in bowel movement (hematochezia) 06/06/2012 LUCY ROMERO APRN 719.42 ARTHRALGIA - HUMERUS / ELBOW LEFT 06/06/2012 VERDUGO DOYINA K 578.1 red blood in bowel movement (hematochezia) 06/06/2012 VERDUGO DO, AYLIN K 719.42 ARTHRALGIA - HUMERUS / ELBOW LEFT 09/01/2012 Ot V58.81 FIT/ADJ VASCULAR CATHETER 10/18/2012 793.80 abnormal mammogram 10/18/2012 VERDUGO DO, AYLIN K 793.80 abnormal mammogram 10/18/2012 VERDUGO DO, AYLIN K 793.80 abnormal mammogram 10/18/2012 VERDUGO DO, AYLIN K 793.80 abnormal mammogram 10/18/2012 VERDUGO DO, AYLIN K 793.80 abnormal mammogram 10/18/2012 VERDUGO DO, AYLIN K 793.80 abnormal mammogram 10/18/2012 MICHAEL GARZA APRN 793.80 abnormal mammogram 10/18/2012 LUCY ROMERO APRN 793.80 abnormal mammogram 10/18/2012 VERDUGO DO, AYLIN K 793.80 abnormal mammogram 04/08/2013 VERDUGO DO AYLIN K 466.0 BRONCHITIS, ACUTE 04/08/2013 VERDUGO DO AYLIN K 466.0 BRONCHITIS, ACUTE 04/08/2013 VERDUGO DO AYLIN K 466.0 BRONCHITIS, ACUTE 04/08/2013 MICHAEL GARZA APRN 466.0 BRONCHITIS, ACUTE 04/08/2013 LUCY ROMERO APRN 466.0 BRONCHITIS, ACUTE 04/08/2013 VERDUGO AYLIN CENTENO 466.0 BRONCHITIS, ACUTE 09/04/2013 VERDUGO AYLIN CENTENO K V73.81 HPV SCREENING 09/04/2013 VERDUGO YIN CENTENOA K V73.81 HPV SCREENING 09/04/2013 MICHAEL GARZA APRN V73.81 HPV SCREENING 09/04/2013 LUCY ROMERO APRN V73.81 HPV SCREENING 09/04/2013 VERDUGO AYLIN CENTENO K V73.81 HPV SCREENING 06/25/2014 AYLIN VERDUGO DO K 461.0 ACUTE MAXILLARY SINUSITIS 06/25/2014 AYLIN VERDUGO DO K 477.9 ALLERGIC RHINITIS CAUSE UNSPECIFIED 04/10/2015 KARLA CAUSEY, MARCO Chen Ot I51.7 CARDIOMEGALY 04/10/2015 MARCO ACOSTA MD Ot R07.89 OTHER CHEST PAIN 04/10/2015 MARCO ACOSTA MD Ot Z98.84 BARIATRIC SURGERY STATUS 04/10/2015 Ot 285.9 04/10/2015 Ot 729.5 04/10/2015 Ot V58.81 04/10/2015 ROHIT LUNDBERG Ot 793.89 04/10/2015 ROHIT LUNDBERG Ot V76.12 04/10/2015 BERNARDO CAUSEY, ERIBERTO Huddleston Ot 578.9 04/10/2015 ERIBERTO CHANG MD Ot V72.84 04/10/2015 MICHAEL GARZA APRN Ot 793.80 05/04/2015 MARCO ACOSTA MD Ot K43.9 VENTRAL HERNIA WITHOUT OBSTRUCTION OR GA 05/04/2015 MARCO ACOSTA MD Ot K86.8 OTHER SPECIFIED DISEASES OF PANCREAS 05/04/2015 MARCO ACOSTA MD Ot N28.9 DISORDER OF KIDNEY AND URETER, UNSPECIFI 05/11/2015 Ot 285.9 05/11/2015 Ot 729.5 05/11/2015 Ot V58.81 05/11/2015 ROHIT LUNDBERG Ot 793.89 05/11/2015 ROHIT LUNDBERG Ot V76.12 05/11/2015 BERNARDO CAUSEY, ERIBERTO Huddleston Ot 578.9 05/11/2015 BERNARDO CAUSEY, EIRBERTO Huddleston Ot V72.84 05/11/2015 MICHAEL GARZA APRN Ot 793.80 05/17/2015 Ot V58.81 05/17/2015 CUMMINGS DO, DANTE D Ot D62 05/17/2015 CUMMINGS DO, DANTE D Ot D72.829 05/17/2015 CUMMINGS DO, DANTE D Ot E03.9 05/17/2015 CMUMINGS DO, DANTE D Ot E66.01 05/17/2015 CUMMINGS DO, DANTE D Ot E83.42 05/17/2015 CUMMINGS DO, DANTE D Ot E86.0 05/17/2015 CUMMINGS DO, DANTE D Ot E87.6 05/17/2015 CUMMINGS DO, DANTE D Ot F32.9 05/17/2015 CUMMINGS DO, DANTE D Ot F41.9 05/17/2015 CUMMINGS DO, DANTE D Ot K21.9 05/17/2015 CUMMINGS DO, DANTE D Ot K91.840 05/17/2015 CUMMINGS DO, DANTE D Ot N13.4 05/17/2015 CUMMINGS DO, DANTE D Ot R19.7 05/17/2015 CUMMINGS DO, DANTE D Ot R55 05/17/2015 CUMMINGS DO, DANTE D Ot Z68.41 05/17/2015 CUMMINGS DO, DANTE D Ot Z98.84 05/18/2015 CUMMINGS DO, DANTE D Ot D62 05/18/2015 CUMMINGS DO, DANTE D Ot D72.829 05/18/2015 CUMMINGS DO, DANTE D Ot E03.9 05/18/2015 CUMMINGS DO, DANTE D Ot E66.01 05/18/2015 CUMMINGS DO, DANTE D Ot E83.42 05/18/2015 CUMMINGS DO, DANTE D Ot E86.0 05/18/2015 CUMMINGS DO, DANTE D Ot E87.6 05/18/2015 CUMMINGS DO, DANTE D Ot F32.9 05/18/2015 CUMMINGS DO, ADNTE D Ot F41.9 05/18/2015 CUMMINGS DO, DANTE D Ot K21.9 05/18/2015 CUMMINGS DO, DANTE D Ot K91.840 05/18/2015 CUMMINGS DO, DANTE D Ot N13.4 05/18/2015 CUMMINGS DO, DANTE D Ot R19.7 05/18/2015 CUMMINGS DO, DANTE D Ot R55 05/18/2015 CUMMINGS DO, DANTE D Ot Z68.41 05/18/2015 CUMMINGS DO, DANTE D Ot Z98.84 05/18/2015 CUMMINGS DO, DANTE D Ot D62 05/18/2015 CUMMINGS DO, DANTE D Ot D72.829 05/18/2015 CUMMINGS DO, DANTE D Ot E03.9 05/18/2015 CUMMINGS DO, DANTE D Ot E66.01 05/18/2015 CUMMINGS DO, DANTE D Ot E83.42 05/18/2015 CUMMINGS DO, DANTE D Ot E86.0 05/18/2015 CUMMINGS DO, DANTE D Ot E87.6 05/18/2015 CUMMINGS DO, DANTE D Ot F32.9 05/18/2015 CUMMINGS DO, DANTE D Ot F41.9 05/18/2015 CUMMINGS DO, DANTE D Ot K21.9 05/18/2015 CUMMINGS DO, DANTE D Ot K91.840 05/18/2015 CUMMINGS DO, DANTE D Ot N13.4 05/18/2015 CUMMINGS DO, DANTE D Ot R19.7 05/18/2015 CUMMINGS DO, DANTE D Ot R55 05/18/2015 CUMMINGS DO, DANTE D Ot Z68.41 05/18/2015 CUMMINGS DO, DANTE D Ot Z98.84 05/18/2015 CUMMINGS DO, DANTE D Ot D62 05/18/2015 CUMMINGS DO, DANTE D Ot D72.829 05/18/2015 CUMMINGS DO, DANTE D Ot E03.9 05/18/2015 CUMMINGS DO, DANTE D Ot E66.01 05/18/2015 CUMMINGS DO, DANTE D Ot E83.42 05/18/2015 CUMMINGS DO, DANTE D Ot E86.0 05/18/2015 CUMMINGS DO, DANTE D Ot E87.6 05/18/2015 CUMMINGS DO, DANTE D Ot F32.9 05/18/2015 CUMMINGS DO, DANTE D Ot F41.9 05/18/2015 CUMMINGS DO, DANTE D Ot K21.9 05/18/2015 CUMMINGS DO, DANTE D Ot K91.840 05/18/2015 CUMMINGS DO, DANTE D Ot N13.4 05/18/2015 CUMMINGS DO, DANTE D Ot R19.7 05/18/2015 CUMMINGS DO, DANTE D Ot R55 05/18/2015 CUMMINGS DO, DANTE D Ot Z68.41 05/18/2015 CUMMINGS DO, DANTE D Ot Z98.84 05/19/2015 CUMMINGS DO, DANTE D Ot D62 05/19/2015 CUMMINGS DO, DANTE D Ot D72.829 05/19/2015 CUMMINGS DO, DANTE D Ot E03.9 05/19/2015 CUMMINGS DO, DANTE D Ot E66.01 05/19/2015 CUMMINGS DO, DANTE D Ot E83.42 05/19/2015 CUMMINGS DO, DANTE D Ot E86.0 05/19/2015 CUMMINGS DO, DANTE D Ot E87.6 05/19/2015 CUMMINGS DO, DANTE D Ot F32.9 05/19/2015 CUMMINGS DO, DANTE D Ot F41.9 05/19/2015 CUMMINGS DO, DANTE D Ot K21.9 05/19/2015 CUMMINGS DO, DANTE D Ot K91.840 05/19/2015 CUMMINGS DO, DANTE D Ot N13.4 05/19/2015 CUMMINGS DO, DANTE D Ot R19.7 05/19/2015 CUMMINGS DO, DANTE D Ot R55 05/19/2015 CUMMINGS DO, DANTE D Ot Z68.41 05/19/2015 CUMMINGS DO, DANTE D Ot Z98.84 05/20/2015 CUMMINGS DO, DANTE D Ot D62 05/20/2015 CUMMINGS DO, DANTE D Ot D72.829 05/20/2015 CUMMINGS DO, DANTE D Ot E03.9 05/20/2015 CUMMINGS DO, DANTE D Ot E66.01 05/20/2015 CUMMINGS DO, DANTE D Ot E83.42 05/20/2015 CUMMINGS DO, DANTE D Ot E86.0 05/20/2015 CUMMINGS DO, DANTE D Ot E87.6 05/20/2015 CUMMINGS DO, DANTE D Ot F32.9 05/20/2015 CUMMINGS DO, DANTE D Ot F41.9 05/20/2015 CUMMINGS DO, DANTE D Ot K21.9 05/20/2015 CUMMINGS DO, DANTE D Ot K91.840 05/20/2015 CUMMINGS DO, DANTE D Ot N13.4 05/20/2015 CUMMINGS DO, DANTE D Ot R19.7 05/20/2015 CUMMINGS DO, DANTE D Ot R55 05/20/2015 CUMMINGS DO, DANTE D Ot Z68.41 05/20/2015 CUMMINGS DO, DANTE D Ot Z98.84 05/21/2015 CUMMINGS DO, DANTE D Ot D62 05/21/2015 CUMMINGS DO, DANTE D Ot D72.829 05/21/2015 CUMMINGS DO, DANTE D Ot E03.9 05/21/2015 CUMMINGS DO, DANTE D Ot E66.01 05/21/2015 CUMMINGS DO, DANTE D Ot E83.42 05/21/2015 CUMMINGS DO, DANTE D Ot E86.0 05/21/2015 CUMMINGS DO, DANTE D Ot E87.6 05/21/2015 CUMMINGS DO, DANTE D Ot F32.9 05/21/2015 CUMMINGS DO, DANTE D Ot F41.9 05/21/2015 CUMMINGS DO, DANTE D Ot K21.9 05/21/2015 CUMMINGS DO, DANTE D Ot K91.840 05/21/2015 CUMMINGS DO, DANTE D Ot N13.4 05/21/2015 CUMMINGS DO, DANTE D Ot R19.7 05/21/2015 CUMMINGS DO, DANTE D Ot R55 05/21/2015 CUMMINGS DO, DANTE D Ot Z68.41 05/21/2015 CUMMINGS DO, DANTE D Ot Z98.84 05/22/2015 CUMMINGS DO, DANTE D Ot D62 05/22/2015 CUMMINGS DO, DANTE D Ot D72.829 05/22/2015 CUMMINGS DO, DANTE D Ot E03.9 05/22/2015 CUMMINGS DO, DANTE D Ot E53.8 05/22/2015 CUMMINGS DODANTE D Ot E66.01 05/22/2015 CUMMINGS DODANTE D Ot E83.42 05/22/2015 CUMMINGS DO, DANTE D Ot E86.0 05/22/2015 CUMMINGS DO, DANTE D Ot E87.2 05/22/2015 CUMMINGS DO, DANTE D Ot E87.6 05/22/2015 CUMMINGS DO, DANTE D Ot F32.9 05/22/2015 CUMMINGS DO, DANTE D Ot F41.9 05/22/2015 CUMMINGS DO, DANTE D Ot K21.9 05/22/2015 CUMMINGS DO, DANTE D Ot K25.9 05/22/2015 CUMMINGS DO, DANTE D Ot K29.70 05/22/2015 CUMMINGS DO, DANTE D Ot K91.840 05/22/2015 CUMMINGS DOJASPREETTT D Ot N13.4 05/22/2015 CUMMINGS DODANTE D Ot R19.5 05/22/2015 CUMMINGS DODANTE D Ot R19.7 05/22/2015 [place] DOJASPREETTT D Ot R55 05/22/2015 [place] DOJASPREETTT D Ot T81.19XA 05/22/2015 CUMMINGS DODANTE D Ot Z68.41 05/22/2015 [place] DODANTE D Ot Z98.84 05/22/2015 CUMMINGS DODANTE D Ot D62 ACUTE POSTHEMORRHAGIC ANEMIA 05/22/2015 ZOILA DODANTE Ot D72.829 ELEVATED WHITE BLOOD CELL COUNT, UNSPECI 05/22/2015 CUMMINGS DODANTE Ot E03.9 HYPOTHYROIDISM, UNSPECIFIED 05/22/2015 CUMMINGS DODANTE D Ot E53.8 DEFICIENCY OF OTHER SPECIFIED B GROUP 05/22/2015 DANTE CUMMINGS DO Ot E66.01 MORBID (SEVERE) OBESITY DUE TO EXCESS CA 05/22/2015 DANTE CUMMINGS DO Ot E83.42 HYPOMAGNESEMIA 05/22/2015 CUMMINGS DODANTE D Ot E86.0 05/22/2015 CUMMINGS DODANTE Ot E87.2 ACIDOSIS 05/22/2015 DANTE CUMMINGS DO Ot E87.6 HYPOKALEMIA 05/22/2015 DANTE CUMMINGS DO Ot F32.9 MAJOR DEPRESSIVE DISORDER, SINGLE EPISOD 05/22/2015 DANTE CUMMINGS DO Ot F41.9 ANXIETY DISORDER, UNSPECIFIED 05/22/2015 DANTE CUMMINGS DO Ot K21.9 GASTRO-ESOPHAGEAL REFLUX DISEASE WITHOUT 05/22/2015 DANTE CUMMINGS DO Ot K25.4 CHRONIC OR UNSPECIFIED GASTRIC ULCER WIT 05/22/2015 DANTE CUMMINGS DO Ot K29.71 GASTRITIS, UNSPECIFIED, WITH BLEEDING 05/22/2015 DANTE CUMMINGS DO Ot K91.840 POSTPROC HEMOR/HEMTOM OF DGSTV SYS ORG F 05/22/2015 DANTE CUMMINGS DO Ot N13.4 HYDROURETER 05/22/2015 DANTE CUMMINGS DO Ot R19.5 OTHER FECAL ABNORMALITIES 05/22/2015 DANTE CUMMINGS DO Ot R19.7 DIARRHEA, UNSPECIFIED 05/22/2015 DANTE CUMMINGS DO Ot R55 05/22/2015 DANTE CUMMINGS DO Ot T81.19XA OTHER POSTPROCEDURAL SHOCK, INITIAL ENCO 05/22/2015 DANTE CUMMINGS DO Ot Z68.41 BODY MASS INDEX (BMI) 40.0-44.9, ADULT 05/22/2015 DANTE CUMMINGS DO Ot Z98.84 BARIATRIC SURGERY STATUS 11/16/2015 Ot 285.9 ANEMIA NOS 11/16/2015 Ot 729.5 PAIN IN LIMB 11/16/2015 Ot V58.81 FIT/ADJ VASCULAR CATHETER 11/16/2015 ROHIT LUNDBERG Ot 793.89 OTH (ABN) FINDINGS ON RADIOLOGICAL EXAMI 11/16/2015 ROHIT LUNDBERG Ot V76.12 OTH SCREEN MAMMO-MALIGN NEOPLASM OF JOANN 11/16/2015 BERNARDO CAUSEY, ERIBERTO Huddleston Ot 578.9 GASTROINTEST HEMORR NOS 11/16/2015 ERIBERTO CHANG MD Ot V72.84 EXAM PRE-OPERATIVE NOS 11/16/2015 MICHAEL GARZA APRN Ot 793.80 UNSPEC ABNORMAL MAMMOGRAM 12/09/2015 Ot 285.9 ANEMIA NOS 12/09/2015 Ot 729.5 PAIN IN LIMB 12/09/2015 Ot V58.81 FIT/ADJ VASCULAR CATHETER 12/09/2015 ROHIT LUNDBERG Ot 793.89 OTH (ABN) FINDINGS ON RADIOLOGICAL EXAMI 12/09/2015 ROHIT LUNDBERG Ot V76.12 OTH SCREEN MAMMO-MALIGN NEOPLASM OF JOANN 12/09/2015 BERNARDO CAUSEY, ERIBERTO Huddleston Ot 578.9 GASTROINTEST HEMORR NOS 12/09/2015 BERNARDO CAUSEY, ERIBERTO Huddleston Ot V72.84 EXAM PRE-OPERATIVE NOS 12/09/2015 MICHAEL GARZA APRN Ot 793.80 UNSPEC ABNORMAL MAMMOGRAM Procedures Code Description Performed By Performed On 38.93 01/01/2011 44.13 01/01/2011 45.23 01/02/2011 50803 ROUTINE VENIPUNCTURE 01/23/2012 58923 CMP 01/23/2012 94639 VIT B 12 01/23/2012 98513 CBC 01/23/2012 80596 MAMMOGRAM, SCREENING 04/25/2012 41904 PAP SMEAR 04/25/2012 Q0091 PAP SMEAR OBTAIN SMEAR 04/25/2012 51132 ROUTINE VENIPUNCTURE 05/30/2012 00074 CBC 05/30/2012 95912 XRAY SHOULDER LEFT COMP 2 VIEWS 06/06/2012 30243 XRAY HUMERUS LEFT 2 VIEWS 06/06/2012 71909 HEMOGLOBIN (IN-HOUSE) 06/06/2012 General S Eriberto Chang 06/24/2012 95250 ROUTINE VENIPUNCTURE 11/28/2012 55121 VITAMIN D 25-HYDROXY (D2,D3, TOTAL) 11/28/2012 77090 VIT B 12 11/28/2012 35617 ROUTINE VENIPUNCTURE 12/26/2012 43233 TSH 12/26/2012 53410 MAMMOGRAM DX, FELICIA 09/04/2013 48419 CULTURE UROGENITAL 09/04/2013 18245 PAP SMEAR 09/04/2013 Q0091 PAP SMEAR OBTAIN SMEAR 09/04/2013 18609 ROUTINE VENIPUNCTURE 12/25/2013 01202 CMP 12/25/2013 54462 LIPID PANEL 12/25/2013 88848 TSH 12/25/2013 03773 CBC 12/25/2013 [id number] 05/20/2015 Results Test Result Range TSH - 01/09/17 15:13 TSH 0.49 mIU/L 0.40-4.50 Encounters ACCT No. Visit Date/Time Discharge Status Pt. Type Provider Facility Loc./Unit Complaint [id number] 07/21/2018 23:12:12 Document Registration [id number] 10/18/2016 15:03:27 10/18/2016 23:59:59 CLS Outpatient Iesha De Luna [id number] 06/23/2016 11:34:17 06/23/2016 23:59:59 CLS Outpatient Iesha De Luna [id number] 02/16/2016 15:31:32 02/16/2016 23:59:59 CLS Outpatient Iesha De Luna [id number] 01/25/2016 15:37:31 01/25/2016 23:59:59 CLS Outpatient Iesha De Luna [id number] 06/08/2015 11:05:18 06/08/2015 23:59:59 CLS Outpatient Lucy Ayala [id number] 06/04/2015 15:17:23 06/04/2015 23:59:59 CLS Outpatient Lucy Ayala [id number] 06/02/2015 12:25:59 06/02/2015 23:59:59 CLS Outpatient Lucy Ayala [id number] 05/31/2015 12:24:33 05/31/2015 23:59:59 CLS Outpatient Lucy Ayala [id number] 05/19/2015 14:23:47 05/19/2015 23:59:59 CLS Outpatient Lucy Ayala [id number] 05/10/2015 12:26:33 05/10/2015 23:59:59 CLS Outpatient Lucy Ayala [id number] 05/17/2015 00:56:00 05/22/2015 17:59:00 DIS Inpatient DANTE CUMMINGS DO Via [facility] 4TH SYNCOPAL EPISODE/POST OP BLEEDING/ANEMIA [id number] 05/04/2015 09:04:00 05/04/2015 23:59:59 CLS Outpatient JUAN LEMUS APRN [facility] QUICK [id number] 05/04/2015 10:17:00 05/04/2015 13:15:00 DIS Emergency MARCO ACOSTA MD [facility] ER ABD PAIN [id number] 04/09/2015 21:29:00 04/10/2015 00:57:00 DIS Emergency MARCO ACOSTA MD [facility] ER CP [id number] 09/22/2013 12:39:00 09/22/2013 23:59:59 CLS Outpatient MICHAEL GARZA APRN [facility] RAD 6 MONTH FOLLOW UP [id number] 05/19/2013 09:22:00 05/19/2013 23:59:59 CLS Outpatient [id number] 10/03/2012 07:10:00 10/03/2012 23:59:59 CLS Outpatient ERIBERTO CHANG MD [facility] SDC RECURRENT GI BLEED [id number] 10/02/2012 08:10:00 10/02/2012 23:59:59 CLS Outpatient ERIBERTO CHANG MD [facility] PREOP RECURRENT GI BLEED [id number] 09/23/2012 08:54:00 09/23/2012 23:59:59 CLS Outpatient ROHIT LUNDBERG [facility] RAD SCREENING [id number] 04/10/2015 01:05:00 Document Registration [id number] 09/02/2012 00:00:00 Document Registration [id number] 06/07/2012 11:33:00 Document Registration [id number] 06/03/2012 10:27:00 Document Registration [id number] 05/31/2012 09:29:00 Document Registration [id number] 05/25/2012 01:30:00 Document Registration [id number] 01/01/2011 15:45:00 Document Registration [id number] 09/05/2018 12:00:00 ACT Outpatient [facility] [id number] 01/09/2017 15:00:00 Document Registration [id number] 06/25/2014 14:14:00 06/25/2014 23:59:59 CLS Outpatient AYLNI VERDUGO DO [id number] 03/11/2014 08:39:00 03/11/2014 23:59:59 CLS Outpatient LUCY ROMERO APRN [id number] 12/25/2013 08:52:00 12/25/2013 23:59:59 CLS Outpatient MICHAEL GARZA APRN [id number] 09/04/2013 08:23:00 09/04/2013 23:59:59 CLS Outpatient AYLIN VERDUGO DO [id number] 09/04/2013 08:23:00 09/04/2013 23:59:59 CLS Outpatient AYLIN VERDUGO DO [id number] 04/08/2013 13:01:00 04/08/2013 23:59:59 CLS Outpatient AYLIN VERDUGO DO [id number] 12/26/2012 14:53:00 12/26/2012 23:59:59 CLS Outpatient AYLIN EVRDUGO DO [id number] 11/28/2012 08:28:00 11/28/2012 23:59:59 CLS Outpatient AYLIN VERDUGO DO [id number] 06/13/2012 09:20:00 06/13/2012 23:59:59 CLS Outpatient [id number] 06/06/2012 15:26:00 06/06/2012 23:59:59 CLS Outpatient TOMER ARRINGTON MD [id number] 05/30/2012 10:11:00 05/30/2012 23:59:59 CLS Outpatient TOMER ARRINGTON MD [id number] 04/25/2012 08:51:00 04/25/2012 23:59:59 [place] [id number] 01/23/2012 13:31:00 01/23/2012 23:59:59 CLS Outpatient TOMER ARRINGTON MD [id number] 09/25/2012 13:01:00 Document Registration [id number] 08/19/2012 15:12:00 Document Registration [id number] 06/24/2012 06:46:00 Document Registration
[2018-09-07 13:14] LABS: BILIRUBIN,URINE NEGATIVE (NEGATIVE); CLARITY,URINE CLEAR; COLOR,URINE YELLOW; GLUCOSE, URINE (UA) NEGATIVE (NEGATIVE); KETONES,URINE NEGATIVE (NEGATIVE); LEUKOCYTE ESTERASE ,URINE 1+ (NEGATIVE); NITRITE,URINE NEGATIVE (NEGATIVE); PH,URINE 7 (5-9); PROTEIN,URINE NEGATIVE (NEGATIVE); UROBILINOGEN,URINE NORMAL (NORMAL)
[2018-09-07 13:28] LABS: BACTERIA,URINE NEGATIVE /HPF; SQUAMOUS EPITHELIAL CELL,UR 0-2 /HPF; WBC,URINE RARE /HPF
--- NOTE | 2018-09-07 13:37 | ED Back Pain ---
General Chief Complaint: Back Problems Stated Complaint: BACK / L SIDE PAIN Nursing Triage Note: PT AMB TO RM 8 WITH COMPLAINT OF MIDDLE BACK PAIN THAT RADIATES TO LEFT SIDE. STATES STARTED TODAY AFTER GARAGE SELLING. Nursing Sepsis Screen: No Definite Risk Source of Information: Patient Exam Limitations: No Limitations History of Present Illness Date Seen by Provider: Sep 07, 2018 Time Seen by Provider: 12:55 Initial Comments Here with complaint of left middle back pain that radiates to the left side. Worse with movement and better with rest. Onset after bending over a few times while looking at stuff at a [employer] sale. Pain persisted. She has not taken anything for the pain and came to the emergency department for evaluation. Denies breathing problems or chest pain. She thinks it might be muscular. Denies dysuria or diarrhea. Denies blood in her urine or stool. Timing/Duration: 1/2 Hour Severity: Moderate Pain/Injury Location: Back Radiation: Other (flank) Method of Injury: Other (movement) Modifying Factors: Improves With Immobilization; Worse With Movement; Improves With Rest Associated Symptoms: muscle spasms; No fever, No weakness, No numbness in legs/feet, No sensory/motor loss, No lower back pain, No loss of bladder control, No loss of bowel control Allergies and Home Medications Allergies Coded Allergies: shellfish derived (Verified Allergy, Mild, 05/25/12) Estrogens (Verified Allergy, Unknown, 05/17/15) PREMARIN - WEIGHT GAIN 35 POUNDS IN 1 MONTH NSAIDS (Non-Steroidal Anti-Inflamma (Verified Allergy, Unknown, HAS HAD GASTRIC BYPASS, 05/17/15) strawberry (Verified Allergy, Unknown, 01/01/11) Home Medications Ascorbate Calcium 500 Mg Tablet, 500 MG PO BID, (Reported) Biotin 1,000 Mcg Tablet, 1,000 MCG PO BID, (Reported) Calcium Carbonate/Vitamin D3 1 Each Tablet, 2 TAB PO BID, (Reported) Cholecalciferol (Vitamin D3) 1,000 Unit Tablet, 1,000 UNIT PO BID, (Reported) Cyanocobalamin 1,000 Mcg/Ml Inj, 1,000 MCG IJ MONTHLY, (Reported) [place] 2Kcl/[place] 1 Each Capsule, 2 CAP PO BID, (Reported) Levothyroxine Sodium 50 Mcg Tablet, 50 MCG PO DAILY, (Reported) Oxycodone HCl/Acetaminophen 1 Each Tablet, 1-2 TAB PO Q4H PRN for PAIN, (Reported) Pantoprazole Sodium 40 Mg Tablet.dr, 40 MG PO BID Prescribed by: XOCHILT CROWDER on 05/21/15945 Pedi Multivit #22/Vit D3/Vit K 1 Each Tab.chew, 1 TAB.CHEW PO BID, (Reported) Potassium Gluconate 99 Mg Tablet, 2 TAB PO BID, (Reported) Sucralfate 1 Gm Tablet, 1 GM PO QID Prescribed by: XOCHILT CROWDER on 05/21/1546 Venlafaxine HCl 75 Mg Cap.er.24h, 75 MG PO DAILY, (Reported) Vitamin E Mixed 400 Unit Capsule, 800 UNIT PO BID, (Reported) TAKES 2 (400UNIT) CAPSULES Patient Home Medication List Home Medication List Reviewed: Yes Review of Systems Constitutional: see HPI; No chills, No fever Respiratory: no symptoms reported Cardiovascular: no symptoms reported Gastrointestinal: No abdominal pain, No nausea, No vomiting Genitourinary: no symptoms reported Musculoskeletal: back pain, muscle pain; No muscle weakness, No neck pain Skin: no symptoms reported All Other Systems Reviewed Negative Unless Noted: Yes Past Syncsnm-Mrpjdl-Jvnotj Hx Past Med/Social Hx: Reviewed Nursing Past Med/Soc Hx Patient Social History Alcohol Use: Denies Use Recreational Drug Use: No Smoking Status: Never a Smoker Recent Foreign Travel: No Contact w/Someone Who Travel: No Recent Infectious Disease Expo: No Immunizations Up To Date Date of Pneumonia Vaccine: May 10, 2008 Date of Influenza Vaccine: Nov 10, 2014 Seasonal Allergies Seasonal Allergies: No Past Medical History Abdominal Reproductive Disorders: No (cyct on cervix) 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 0.8oz. 123.197870up; 44.70 BMI Method:Stated General Appearance: No Apparent Distress, WD/WN, Obese HEENT: PERRL/EOMI, Pharynx Normal Neck: Non Tender, Supple Cardiovascular: Regular Rate, Rhythm, No Murmur Gastrointestinal: Non Tender, Soft Back: Muscle Spasm, Other (left flank along the lower ribs posterior lateral) Extremity: Normal Range of Motion, Non Tender, No Calf Tenderness, No Pedal Edema Neurologic/Psychiatric: Alert, Oriented x3, No Motor/Sensory Deficits Skin: Normal Color, Warm/Dry Progress/Results/Core Measures Results/Orders Lab Results Laboratory Tests Test 09/07/18 13:02 Range/Units Urine Color YELLOW Urine Clarity CLEAR Urine pH 7 5-9 Urine Specific [place] 1.005 L 1.016-1.022 Urine Protein NEGATIVE NEGATIVE Urine Glucose (UA) NEGATIVE NEGATIVE Urine Ketones NEGATIVE NEGATIVE Urine Nitrite NEGATIVE NEGATIVE Urine Bilirubin NEGATIVE NEGATIVE Urine Urobilinogen NORMAL NORMAL MG/DL Urine Leukocyte Esterase 1+ H NEGATIVE Urine RBC (Auto) NEGATIVE NEGATIVE Urine RBC NONE /HPF Urine WBC RARE /HPF Urine Squamous Epithelial Cells 0-2 /HPF Urine Crystals NONE /LPF Urine Bacteria NEGATIVE /HPF Urine Casts NONE /LPF Urine Mucus NEGATIVE /LPF Urine Culture Indicated NO My Orders Orders - MARCO ACOSTA MD Ua Culture If Indicated (09/07/18 12:55) Ketorolac Injection (Toradol Injection) (09/07/18 13:03) Morphine Injection (Morphine Injection (09/07/18 13:55) Vital Signs/I&O 09/07/18 12:55 Temp 97.3 Pulse 63 Resp 17 B/P (MAP) 143/74 (97) Pulse Ox 95 O2 Delivery Room Air Blood Pressure Mean: 97 Progress Progress Note : Progress Note Seen and evaluated. UA ordered. Toradol 60 mg IM ordered. Monitor patient. 1400: Patient has some persistence of pain although a little better. Morphine 8 mg IM ordered. Monitor patient. 1436: Patient is doing much better. She states that she's hungry and really needs to go. Discharged home with return precautions. Patient verbalize understanding instructions and agreement with plan. Departure Impression Primary Impression: Back strain of thoracic region Qualified Codes: S29.019A - Strain of muscle and tendon of unspecified wall of thorax, initial encounter Disposition: 01 HOME, SELF-CARE Condition: Improved Departure-Patient Inst. Decision time for Depature: 14:37 [place]: [facility] [place] Primary Care Physician Patient Instructions: Upper Back Pain (DC), Muscle Strain (DC) Add. Discharge Instructions: All discharge instructions reviewed with patient and/or family. Voiced understanding. You may take Tylenol or the generic acetaminophen 1000 mg every 6 hours as needed for pain if you're not taking the prescribed pain medicine. Do not take both at the same time as both of acetaminophen in them. You may use [id number] Icy Hot with lidocaine patches, Aspercreme with lidocaine patches, Salonpas with lidocaine patches for similar items to area of concern per package directions. Follow-up with your Dr. in a few days for recheck. Return for worse pain, fever, breathing problems, chest pain, weakness or other concerns as needed. Scripts Cyclobenzaprine HCl (Cyclobenzaprine HCl) 5 Mg Tablet 5 MG PO TID, #12 TAB 0 Refills Prov: MARCO ACOSTA MD 09/07/18 Hydrocodone Bit/Acetaminophen (Hydrocodone/Acetaminophen 5/325mg Tablet) 1 Tab Tab 1 EACH PO Q6H PRN for PAIN-MODERATE MDD 10 for 3 Days, #8 TAB 0 Refills Prov: MARCO ACOSTA MD 09/07/18 MARCO ACOSTA MD Sep 07, 2018 13:37
[2018-09-07] MEDS ORDERED: morphine INJ 10 MG/ML 1ML (SYR OR VIAL) IM STA (13:55)
[2018-09-07] MEDS ORDERED: ACHD5005 PO (14:41)
[2018-09-07] MEDS ORDERED: CYCL5TAB PO (14:41)
[2018-09-07 14:53] VITALS: BP 138/70
== END 2018-09-07 14:53 | disposition home or self-care (01) ==
LOC: EDUNIT# 12:46 → ER 12:48
DX: S29.011A Strain of muscle and tendon of front wall of thorax, initial encounter (principal); K21.9 Gastro-esophageal reflux disease without esophagitis; E03.9 Hypothyroidism, unspecified; F41.9 Anxiety disorder, unspecified; F32.9 Major depressive disorder, single episode, unspecified; Z87.19 Personal history of other diseases of the digestive system; Z88.8 Allergy status to other drugs, medicaments and biological substances; Z88.6 Allergy status to analgesic agent; X50.1XXA Overexertion from prolonged static or awkward postures, initial encounter
CPT/HCPCS: 81000; 99284

== ENCOUNTER → 2020-01-30 | Outpatient (CLI) | payer MEDICARE ==
[~2020-01-30] MED LIST changes: +ACHD5005 PO; +CYCL5TAB PO; +VITA-272 PO; -VITA400C58 PO
--- NOTE | 2020-01-30 11:21 | Diagnostic Imaging Report ---
INDICATION: Routine screening. COMPARISON: 09/22/2013. TECHNIQUE: 2D and 3D bilateral screening mammography was performed with CAD. FINDINGS: Scattered fibroglandular densities are identified bilaterally. The overall breast parenchymal density is stable. A lobulated nodule in the upper-outer left breast appears stable. No new mass or malignant appearing microcalcifications are seen. The axillae are unremarkable. IMPRESSION: No mammographic features suspicious for malignancy are identified. ACR BI-RADS Category 2: Benign findings. Result letter will be mailed to the patient. Note: At least 10% of breast cancer is not imaged by mammography. Dictated by: Dictated on workstation # [id number]
== END ==
LOC: RAD 10:15
PROVIDERS: ATTEND Physician Assistant
DX: Z12.31 Encounter for screening mammogram for malignant neoplasm of breast (principal)
CPT/HCPCS: 77063; 77067

== ENCOUNTER → 2020-02-24 | Outpatient (CLI) | payer MEDICARE ==
--- NOTE | 2020-02-24 10:31 | Diagnostic Imaging Report ---
INDICATION: Postmenopausal COMPARISON: None FINDINGS: The bone marrow density of the spine was measured. There are no prior studies available for comparison. The T score for the spine is -1.2. This does indicate mild osteopenia. However it should be noted the T score for L1 is -2.3 which suggests severe osteopenia. The total T score for the left hip is -2.3 and for the right hip -1.6. The total T score for the left femoral neck is -2.4 and for the right -2.2. All these values indicate osteopenia. AP Spine L1-L4: [BMD (g/cm2): 1.052] [T-Score: -1.2] [Z-Score: -0.7] [BMD Previous: na] [BMD % Change: na] LT Hip Neck: [BMD (g/cm2): 0.701] [T-Score: -2.4] [Z-Score: -1.5] LT Hip Total: [BMD (g/cm2):0.717] [T-Score:-2.3] [Z-Score: -1.7] [BMD Previous: na] [BMD % Change: na] RT Hip Neck: [BMD (g/cm2):0.722] [T-Score:-2.3] [Z-Score:-1.3] RT Hip Total: [BMD (g/cm2):0.804] [T-score:-1.6] [Z-Score:-1.0] [BMD Previous:na] [BMD % Change:na] *Indicates significant change from prior examination based on 95% confidence level. World Health Organization criteria for BMD interpretation classify patients as Normal (T-score at or above -1.0), Osteopenic (T-score between -1.0 and -2.5) or Osteoporotic (T-score at or below -2.5). LIMITATIONS AND MODIFICATION: None. FRACTURE RISK (FRAX SCORE): The ten year probability of (%): Major Osteoporotic Fracture: [19.2] Hip Fracture: [4.3] IMPRESSION: 1. The bone mineral density of the hips, the spine and the femoral necks indicates osteopenia. 2. 3. See below National Osteoporosis Foundation guidelines on when to potentially initiate pharmacologic therapy. Based on the National Osteoporosis Foundation Guidelines, pharmacologic treatment should be initiated in any of the following, unless clinical conditions suggest otherwise: * Any patient with prior fragility fracture of the hip or vertebrae. A spine fracture indicates 5X risk for subsequent spine fracture and 2X risk for subsequent hip fracture. * Osteoporosis (T-score <-2.5). * Postmenopausal women and men age 50 and older with low bone mass/osteopenia (T-score between -1.0 and -2.5) by DXA and 10-year major osteoporotic fracture greater than 20% or a 10-year probability of hip fracture greater than 3%. These fracture risks are supplied above in the FRAX score, if applicable. * Clinician judgement and/or patient preferences may indicate treatment for people with 10-year fracture probabilities above or below these levels. Dictated by: Dictated on workstation # [id number]
== END ==
LOC: RAD 09:13
PROVIDERS: ATTEND Physician Assistant
DX: Z13.820 Encounter for screening for osteoporosis (principal); M85.88 Other specified disorders of bone density and structure, other site; Z78.0 Asymptomatic menopausal state
CPT/HCPCS: 77080

== ENCOUNTER 2021-02-20 09:12 | Emergency (ER) | payer MEDICARE ==
[~2021-02-20] VITALS: Ht 172.7 cm; Wt 129.0 kg
[~2021-02-20 09:12] MED LIST changes: -OXYC-471 PO; +OXYC1TAB11 PO; -POTA99TA21 PO; +POTA99TA26 PO
--- NOTE | 2021-02-20 09:56 | ED General ---
General Chief Complaint: General Problems/Pain Stated Complaint: LEFT LEG PAIN Nursing Triage Note: c/o weakness and inability to care for self at home and states it is causing her and her to fight. verbalizes she has had diarrhea and he is having to clean her up. states she had a knee replacement at the end of december and is having difficulty careing for herself at home, as above. Source of Information: Patient Exam Limitations: No Limitations (SALLY ZAPIEN STUDENT) History of Present Illness Date Seen by Provider: Feb 20, 2021 Time Seen by Provider: 09:40 Initial Comments This is a 71 YO female who presents to the ER with multiple complaints. She had left knee replacement surgery [address] Christine in [facility] and has continued to have pain and swelling that is not improved with physical therapy. Had a follow up appointment with Dr. Christine scheduled for last week, but says did not go because she can't get around and her car is broken down. Also notes that she has been having urinary and fecal urgency since her surgery. Began h aving diarrhea 1 week ago and was seen in the [place] [facility], where she was diagnosed with gastroenteritis. Has tried taking Imodium without improvement. States she came in today because she cannot take care of herself and her cannot take care of her either. Associated Systoms: No Fever/Chills, No Nausea/Vomiting (SALLY ZPAIEN STUDENT) Allergies and Home Medications Allergies Coded Allergies: shellfish derived (Verified Allergy, Mild, 05/25/12) Estrogens (Verified Allergy, Unknown, 05/17/15) PREMARIN - WEIGHT GAIN 35 POUNDS IN 1 MONTH NSAIDS (Non-Steroidal Anti-Inflamma (Verified Allergy, Unknown, HAS HAD GASTRIC BYPASS, 05/17/15) strawberry (Verified Allergy, Unknown, 01/01/11) Patient Home Medication List Home Medication List Reviewed: Yes (KIMO FRIAS MD) Ascorbate Calcium (Vitamin C) 500 Mg Tablet, 500 MG PO BID, (Reported) Entered as Reported by: NUBIA ROLON on 05/17/15 0920 Biotin (Biotin) 1,000 Mcg Tablet, 1,000 MCG PO BID, (Reported) Entered as Reported by: NUBIA ROLON on 05/17/15 0920 Calcium Carbonate/Vitamin D3 (Calcium 500 + D Tablet) 1 Each Tablet, 2 TAB PO BID, (Reported) Entered as Reported by: NUBIA ROLON on 05/17/15919 Cholecalciferol (Vitamin D3) (Vitamin D3) 1,000 Unit Tablet, 1,000 UNIT PO BID, (Reported) Entered as Reported by: NUBIA ROLON on 05/17/15919 Cyanocobalamin (Cyanocobalamin Injection) 1,000 Mcg/Ml Inj, 1,000 MCG IJ MONTHLY, (Reported) Entered as Reported by: NUBIA ROLON on 05/17/15909 Cyclobenzaprine HCl (Cyclobenzaprine HCl) 5 Mg Tablet, 5 MG PO TID Prescribed by: MARCO ACOSTA on 09/07/18 144 Gabapentin (Gabapentin) 100 Mg Capsule, 100 MG PO TID Prescribed by: KIMO FRIAS on 02/20/21 1203 [place] 2Kcl/[place] (Glucosamine & Chondroitin Cap) 1 Each Capsule, 2 CAP PO BID, (Reported) Entered as Reported by: NUBIA ROLON on 05/17/15919 Hydrocodone Bit/Acetaminophen (Lortab 5 Mg Tablet) 1 Tab Tab, 1 EACH PO Q6H PRN for PAIN-MODERATE Prescribed by: MARCO ACOSTA on 09/07/18 1441 Levothyroxine Sodium (Levothyroxine Sodium) 50 Mcg Tablet, 50 MCG PO DAILY, (Reported) Entered as Reported by: NUBIA ROLON on 05/17/15909 Oxycodone HCl/Acetaminophen (Oxycodone-Acetaminophen 5-325) 1 Each Tablet, 1-2 TAB PO Q4H PRN for PAIN, (Reported) Entered as Reported by: NUBIA ROLON on 05/17/15909 Pantoprazole Sodium (Protonix) 40 Mg Tablet.dr, 40 MG PO BID Prescribed by: XOCHILT VALADEZ [facility] on 05/21/15 0946 Pedi Multivit #22/Vit D3/Vit K (Multivitamins Chewables Tablet) 1 Each Tab.chew, 1 TAB.CHEW PO BID, (Reported) Entered as Reported by: NUBIA ROLON on 05/17/15919 Potassium Gluconate (Potassium) 99 Mg Tablet, 2 TAB PO BID, (Reported) Entered as Reported by: NUBIA ROLON on 3/7/16 0920 Sucralfate (Carafate) 1 Gm Tablet, 1 GM PO QID Prescribed by: XOCHILT VALADEZ NWMARGE on 05/21/15 0946 Tramadol HCl (Tramadol HCl) 50 Mg Tablet, 50 MG PO Q6H PRN for PAIN Prescribed by: KIMO FRIAS on 02/20/21 1203 Venlafaxine HCl (Effexor Xr) 75 Mg Cap.er.24h, 75 MG PO DAILY, (Reported) Entered as Reported by: NUBIA ROLON on 05/17/15 0910 Vitamin E Mixed (Vitamin E) 400 Unit Capsule, 800 UNIT PO BID, (Reported) Entered as Reported by: NUBIA ROLON on 05/17/15 0920 Walker (Ultra-Light Rollator) 1 Each Each, EACH MC DAILY, (DME) Prescribed by: KIMO FRIAS on 02/20/21 1203 Review of Systems Review of Systems Constitutional: No chills, No fever EENTM: No blurred vision, No double vision, No throat pain Respiratory: No cough, No short of breath Cardiovascular: No chest pain, No palpitations Gastrointestinal: see HPI Genitourinary: see HPI; No discharge, No dysuria Musculoskeletal: no symptoms reported Skin: no symptoms reported Psychiatric/Neurological: Denies Headache, Denies Numbness Hematologic/Lymphatic: No Symptoms Reported Immunological/Allergic: no symptoms reported (SALLY ZAPIEN MED STUDENT) All Other Systems Reviewed Negative Unless Noted: Yes (Negative excepted noted.) (SALLY ZAPIEN MED STUDENT) Past Xhdnenm-Szuncf-Uulpwx Hx Patient Social History Tobacco Use?: No Use of E-Cig and/or Vaping dev: No Substance use?: No Alcohol Use?: No (SALLY ZAPIEN [employer] STUDENT) Immunizations Up To Date Influenza Vaccine Up-to-Date: Yes; Up-to-Date First/Initial COVID19 Vaccinat: cant remember Second COVID19 Vaccination Adryan: cant remember COVID19 Vaccine Manager Php: NotesFirst (SALLY ZAPIEN MED STUDENT) Seasonal Allergies Seasonal Allergies: No (SALLY ZAPIEN [employer] STUDENT) Past Medical History Abdominal Reproductive Disorders: No (cyct on cervix) 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 Sexually Transmitted Disease: No Kidney Infection, Bladder Infection Abdominal Hernia, Gastroesophageal Reflux, Chronic Constipation, Hiatal Hernia, Ulcer Arthritis, Fractures Hypothyroidsim Cataract Anxiety, Depression Adverse Reaction/Blood Tranf: No (SALLY ZAPIEN [employer] STUDENT) Family Medical History No Pertinent Family Hx (SALLY ZAPIEN STUDENT) Physical Exam Vital Signs Vital Signs - First Documented 02/20/21 02/20/21 09:15 13:03 Temp 36.7 Pulse 18 Resp 74 B/P (MAP) 139/72 (94) Pulse Ox 98 O2 Delivery Room Air (KIMO FRIAS MD) Vital Signs Capillary Refill : (SALLY ZAPIEN MED STUDENT) Height, Weight, BMI Height: 5'8.00" Weight: 272lbs. 0.8oz. 123.060982de; 43.00 BMI Method:Stated General Appearance: Anxious, Other (morbidly obese) Eyes: Bilateral Eye Normal Inspection, Bilateral Eye EOMI HEENT: PERRL/EOMI; No Scleral Icterus (L), No Scleral Icterus (R) Neck: Normal Inspection, Supple Respiratory: Normal Breath Sounds, No Accessory Muscle Use, No Respiratory Distress Cardiovascular: Regular Rate, Rhythm, No Murmur Gastrointestinal: Non Tender, Soft; No Guarding; Other (morbidly obese abdomen) Extremity: Other (diffuse BLE tenderness to light touch; NVI distally, DP pulses 2+ and equal bilaterally; surgical scars to bilateral knees, left is well-healing, no erythma, warmth, or swelling) Neurologic/Psychiatric: Alert, Oriented x3, No Motor/Sensory Deficits Skin: Normal Color, Warm/Dry (SALLY ZAPIEN [employer] STUDENT) Progress/Results/Core Measures Suspected Sepsis SIRS Temperature: Pulse: 18 Respiratory Rate: 74 Laboratory Tests 02/20/21 10:38: White Blood Count 6.7 Blood Pressure 139 /72 Mean: 94 Laboratory Tests 02/20/21 10:38: Platelet Count 272 (SALLY ZAPIEN [employer] STUDENT) Results/Orders Lab Results Laboratory Tests Test 02/20/21 10:09 02/20/21 10:38 Range/Units Urine Color YELLOW Urine Clarity CLEAR Urine pH 6.0 5-9 Urine Specific [place] <=1.005 1.016-1.022 Urine Protein NEGATIVE NEGATIVE Urine Glucose (UA) NEGATIVE NEGATIVE Urine Ketones NEGATIVE NEGATIVE Urine Nitrite NEGATIVE NEGATIVE Urine Bilirubin NEGATIVE NEGATIVE Urine Urobilinogen 0.2 < = 1.0 MG/DL Urine Leukocyte Esterase NEGATIVE NEGATIVE Urine RBC (Auto) NEGATIVE NEGATIVE Urine RBC NONE /HPF Urine WBC NONE /HPF Urine Squamous Epithelial Cells RARE /HPF Urine Crystals NONE /LPF Urine Bacteria NEGATIVE /HPF Urine Casts NONE /LPF Urine Mucus NEGATIVE /LPF Urine Culture Indicated NO White Blood Count 6.7 4.3-11.0 10^3/uL Red Blood Count 3.15 L 3.80-5.11 10^6/uL Hemoglobin 10.3 L 11.5-16.0 g/dL Hematocrit 32 L 35-52 % Mean Corpuscular Volume 103 H 80-99 fL Mean Corpuscular Hemoglobin 33 25-34 pg Mean Corpuscular Hemoglobin Concent 32 32-36 g/dL Red Cell Distribution Width 13.5 10.0-14.5 % Platelet Count 272 130-400 10^3/uL Mean Platelet Volume 10.2 9.0-12.2 fL Immature Granulocyte % (Auto) 0 % Neutrophils (%) (Auto) 72 42-75 % Lymphocytes (%) (Auto) 15 12-44 % Monocytes (%) (Auto) 10 0-12 % Eosinophils (%) (Auto) 2 0-10 % Basophils (%) (Auto) 1 0-10 % Neutrophils # (Auto) 4.8 1.8-7.8 10^3/uL Lymphocytes # (Auto) 1.0 1.0-4.0 10^3/uL Monocytes # (Auto) 0.7 0.0-1.0 10^3/uL Eosinophils # (Auto) 0.1 0.0-0.3 10^3/uL Basophils # (Auto) 0.1 0.0-0.1 10^3/uL Immature Granulocyte # (Auto) 0.0 0.0-0.1 10^3/uL Sodium Level 143 135-145 MMOL/L Potassium Level 3.3 L 3.6-5.0 MMOL/L Chloride Level 108 H 98-107 MMOL/L Carbon Dioxide Level 22 21-32 MMOL/L Anion Gap 13 5-14 MMOL/L Blood Urea Nitrogen 7 7-18 MG/DL Creatinine 0.69 0.60-1.30 MG/DL Estimat Glomerular Filtration Rate 84 BUN/Creatinine Ratio 10 Glucose Level 110 H 70-105 MG/DL Calcium Level 9.2 8.5-10.1 MG/DL Corrected Calcium 9.6 8.5-10.1 MG/DL Total Bilirubin 0.3 0.1-1.0 MG/DL Aspartate Amino Transf (AST/SGOT) 21 5-34 U/L Alanine Aminotransferase (ALT/SGPT) 16 0-55 U/L Alkaline Phosphatase 153 H 40-136 U/L C-Reactive Protein High Sensitivity 1.98 H 0.00-0.50 MG/DL Total Protein 6.5 6.4-8.2 GM/DL Albumin 3.5 3.2-4.5 GM/DL Thyroid Stimulating Hormone (TSH) 0.89 0.35-4.94 UIU/ML Free Thyroxine 1.29 0.70-1.48 NG/DL (KIMO FRIAS MD) My Orders Orders - KIMO FRIAS MD Ed Iv/Invasive Line Start (02/20/21 10:21) Cbc With Automated Diff (02/20/21 10:21) Comprehensive Metabolic Panel (02/20/21 10:21) Ua Culture If Indicated (02/20/21 10:21) Hs C Reactive Protein (02/20/21 10:21) Thyroid Stimulating Hormone (02/20/21 10:21) Free T4 (Free Thyroxine) (02/20/21 10:21) Fentanyl Inj (Sublimaze Injection) (02/20/21 10:30) Knee, Left, 3 Views (02/20/21 10:21) Fentanyl Inj (Sublimaze Injection) (02/20/21 12:45) Tramadol Tablet (Ultram Tablet) (02/20/21 12:45) Iv Push Hand Ornament Maker Ed (02/20/21 ) (KIMO FRIAS MD) Medications Given in ED (KIOM FRIAS MD) Vital Signs/I&O 02/20/21 02/20/21 09:15 13:03 Temp 36.7 Pulse 18 77 Resp 74 18 B/P (MAP) 139/72 (94) 140/61 Pulse Ox 98 98 O2 Delivery Room Air (KIMO FRIAS MD) Vital Signs/I&O Capillary Refill : (SALLY ZAPIEN MED STUDENT) Blood Pressure Mean: 94 Progress Note : Time: 12:06 Progress Note 71-year-old female patient with a history of morbid obesity, recent left knee replacement in November by an orthopedic surgeon in [place]. Presents with increasing complaints of inability to take care of her self at home. She has had multiple visits to [facility] as well as urgent care regarding d iarrhea, musculoskeletal pain, generalized weakness, urinary frequency. Patient tells me that her "work-ups" have been unremarkable. Her orthopedic surgeon does note that she has had persistent pain in her left knee. She states that she has been told her left leg left knee pain is due to "sciatica". The patient has been seeing a chiropractor. She tells me that she does continue to do physical therapy but her pain makes it very difficult. Last physical therapy was on February 16. She states she tolerated this fairly well but since then has had a steady decline in function. She states she is not able to get up in time to be able to go to the bathroom with her diarrhea and urinary urgency. She is requesting rehab placement. She does not like to take her narcotic pain medications because she does not like "the way they make me feel". Physical examination remarkable only for morbid obesity and diffuse tenderness around the left knee with soft tissue swelling noted. No open wounds, erythema. Vital signs are stable. I did give her some fentanyl IV here. She obtained some relief. General medical work-up is unremarkable. She does have a left knee effusion but the hardware appears intact and in place. I discussed with her all of her findings. We are unable to get her rehab placement today on a Sunday. She will need to follow-up with her primary care doctor regarding this. We talked about further pain medicine for home use, will prescribe some gabapentin 100 mg 3 times daily as well as some tramadol. I have encouraged to increase her intake of fiber. Continue Imodium. I have encouraged her to drink plenty of fluids and eat well. She is to call her primary care doctor's office tomorrow to be placed on a wait list for any cancellations, other than that her next appointment is not scheduled till March. Return precautions are given. (KIMO FRIAS MD) Departure Impression Primary Impression: Chronic pain Qualified Codes: G89.29 - Other chronic pain Additional Impressions: Morbid obesity Debility, unspecified Disposition: HOME, SELF-CARE Condition: Stable Departure-Patient Inst. Decision time for Depature: 11:58 (KIMO FRIAS MD) Referrals: [facility] (PCP/Family) Primary Care Physician Patient Instructions: Chronic Pain (DC) Add. Discharge Instructions: Start taking the gabapentin, 1 tablet 3 times daily as needed for nerve pain. I have also prescribed you some tramadol, this medication may make you little sleepy. You can take 1 every 6 hours as needed for pain. You can apply ice packs to your left knee for swelling. You can also use sjoe-zbx-puxcmby topical creams such as Biofreeze, diclofenac gel or use "Salonpas" pain patches. Please call your primary care doctor's office tomorrow for a follow-up appointment to discuss rehab placement. Increase your daily intake of fiber to help with your diarrhea. Benefiber is a good option to do this. Return to the emergency room for any fevers, chills, shortness of breath or any other emergent concerning symptoms. Scripts Walker (Ultra-Light Rollator) 1 Each Each EACH MC DAILY for chronic left knee pain, #1 1 Refill Prov: KIMO FRIAS MD 02/20/21 Tramadol HCl (Tramadol HCl) 50 Mg Tablet 50 MG PO Q6H PRN for PAIN, #20 TAB 0 Refills Prov: KIMO FRIAS MD 02/20/21 Gabapentin (Gabapentin) 100 Mg Capsule 100 MG PO TID for Neuropathic pain, #60 CAP Prov: KIMO FRIAS MD 02/20/21 Verification and Attestation of Medical Student E/M Service A medical student performed and documented this service in my presence. I reviewed and verified all information documented by the medical student and made modifications to such information, when appropriate. I personally performed the physical exam and medical decision making. Kimo Frias, Feb 20, 2021,12:06 (KIMO FRIAS MD) Copy Copies To 1: AYLIN VERDUGO CHRISTINE MED STUDENT Feb 20, 2021 09:56 KIMO FRIAS MD Feb 20, 2021 12:03
[2021-02-20 10:29] LABS: BILIRUBIN,URINE NEGATIVE (NEGATIVE); CLARITY,URINE CLEAR; COLOR,URINE YELLOW; GLUCOSE, URINE (UA) NEGATIVE (NEGATIVE); KETONES,URINE NEGATIVE (NEGATIVE); LEUKOCYTE ESTERASE ,URINE NEGATIVE (NEGATIVE); NITRITE,URINE NEGATIVE (NEGATIVE); PROTEIN,URINE NEGATIVE (NEGATIVE)
[2021-02-20] MEDS ORDERED: fentaNYL INJ 100 MCG/2 ML AMP IVP ONE ×2 (10:30→12:45)
[2021-02-20 10:45] LABS: BASOPHILS # (AUTO) 0.1 10^3/uL (0.0-0.1); BASOPHILS % (AUTO) 1 % (0-10); EOSINOPHILS # (AUTO) 0.1 10^3/uL (0.0-0.3); EOSINOPHILS % (AUTO) 2 % (0-10); HEMATOCRIT 32 % (35-52); HEMOGLOBIN 10.3 g/dL (11.5-16.0); LYMPHOCYTES % (AUTO) 15 % (12-44); MEAN CORPUSCULAR HEMOGLOBIN 33 pg (25-34); MEAN CORPUSCULAR HGB CONC 32 g/dL (32-36); MEAN CORPUSCULAR VOLUME 103 fL (80-99); MEAN PLATELET VOLUME 10.2 fL (9.0-12.2); MONOCYTES # (AUTO) 0.7 10^3/uL (0.0-1.0); MONOCYTES % (AUTO) 10 % (0-12); NEUTROPHILS # (AUTO) 4.8 10^3/uL (1.8-7.8); NEUTROPHILS % (AUTO) 72 % (42-75); PLATELET COUNT 272 10^3/uL (130-400); WHITE BLOOD COUNT 6.7 10^3/uL (4.3-11.0)
[2021-02-20 10:47] LABS: BACTERIA,URINE NEGATIVE /HPF; SQUAMOUS EPITHELIAL CELL,UR RARE /HPF
[2021-02-20 10:54] LABS: ALBUMIN 3.5 GM/DL (3.2-4.5); POTASSIUM 3.3 MMOL/L (3.6-5.0)
[2021-02-20 10:55] LABS: CALCIUM 9.2 MG/DL (8.5-10.1)
[2021-02-20 10:57] LABS: TOTAL PROTEIN 6.5 GM/DL (6.4-8.2)
[2021-02-20 10:58] LABS: BILIRUBIN,TOTAL 0.3 MG/DL (0.1-1.0)
[2021-02-20 11:00] LABS: CREATININE SERUM 0.69 MG/DL (0.60-1.30)
[2021-02-20 11:23] LABS: FREE T4 (FREE THYROXINE) 1.29 NG/DL (0.70-1.48)
--- NOTE | 2021-02-20 11:36 | Diagnostic Imaging Report ---
EXAMINATION: Left knee 3 views HISTORY: Severe left knee. COMPARISON: None available. FINDINGS: There has been a left total knee arthroplasty. There is a left knee effusion. No acute fracture. IMPRESSION: 1. Left knee effusion, no acute fracture. Dictated by: Dictated on workstation # [id number]
[2021-02-20] MEDS ORDERED: GABA-486 PO (12:03)
[2021-02-20] MEDS ORDERED: WALK1EAC23 MC (12:03)
[2021-02-20] MEDS ORDERED: TRM50T PO (12:03)
[2021-02-20 13:03] VITALS: BP 140/61
== END 2021-02-20 13:03 | disposition home or self-care (01) ==
LOC: EDUNIT# 09:12 → ER 09:14
DX: G89.29 Other chronic pain (principal); E66.01 Morbid (severe) obesity due to excess calories; R53.81 Other malaise; F41.9 Anxiety disorder, unspecified; F32.9 Major depressive disorder, single episode, unspecified; K21.9 Gastro-esophageal reflux disease without esophagitis; E03.9 Hypothyroidism, unspecified; Z68.41 Body mass index [BMI] 40.0-44.9, adult; Z79.890 Hormone replacement therapy; Z79.899 Other long term (current) drug therapy
CPT/HCPCS: 36415; 73562; 80053; 81000; 84439; 84443; 85025; 86141; 96374; 96376

== ENCOUNTER 2022-03-09 18:52 | Emergency (ER) | payer MEDICARE, MEDICAID ==
[~2022-03-09] VITALS: Ht 170.2 cm; Wt 124.7 kg
[~2022-03-09 18:52] MED LIST changes: +GABA-486 PO; +TRM50T PO; +VITA-212 PO; -VITA-272 PO; +WALK1EAC23 MC
[2022-03-09 18:58] VITALS: BP 145/84
--- NOTE | 2022-03-09 20:50 | ED Back Pain ---
General Chief Complaint: Back Problems Stated Complaint: STRESS FRACTURE IN LOW BACK - PAIN Nursing Triage Note: PT AMB TO TRIAGE W REPORTS OF FALL D/T SNOW ON 03/05/22. PT DX W OLD STRESS FX ON 03/08/22 AT [facility] SEK WALK IN, [facility] ADMIN STEROID SHOT. PT C/O BACK PAIN UNCONTROLLED BY TYLENOL, UNABLE TO TAKE NSAID MEDS. PT REPORTS SEVERAL FALLS THIS YEAR, UNSURE WHEN STRESS FRACTURE MAY HAVE OCCURRED. PT A&OX4. History of Present Illness Date Seen by Provider: Mar 09, 2022 Time Seen by Provider: 19:10 Initial Comments 72-year-old female presents for low back pain. She was given Tylenol for lumbar compression fracture. She is unsure of the date of the injury. Reports increased pain, causing nausea. Location: Lumbar Spine Timing/Duration: 5-6 Days Severity: Mild Pain/Injury Location: Back Associated Symptoms: No muscle spasms, No numbness in legs/feet, No tingling in legs/feet, No sensory/motor loss; lower back pain; No loss of bladder control, No loss of bowel control Allergies and Home Medications Allergies Coded Allergies: shellfish derived (Verified Allergy, Mild, 05/25/12) Estrogens (Verified Allergy, Unknown, 05/17/15) PREMARIN - WEIGHT GAIN 35 POUNDS IN 1 MONTH NSAIDS (Non-Steroidal Anti-Inflamma (Verified Allergy, Unknown, HAS HAD GASTRIC BYPASS, 05/17/15) meloxicam (Verified Allergy, Unknown, 03/09/22) strawberry (Verified Allergy, Unknown, 01/01/11) Patient Home Medication List Home Medication List Reviewed: Yes Ascorbate Calcium (Vitamin C) 500 Mg Tablet, 500 MG PO BID, (Reported) Entered as Reported by: NUBIA ROLON on 05/17/15919 Biotin (Biotin) 1,000 Mcg Tablet, 1,000 MCG PO BID, (Reported) Entered as Reported by: NUBIA ROLON on 05/17/15919 Calcium Carbonate/Vitamin D3 (Calcium 500 + D Tablet) 1 Each Tablet, 2 TAB PO BID, (Reported) Entered as Reported by: NUBIA ROLON on 05/17/15919 Cholecalciferol (Vitamin D3) (Vitamin D3) 1,000 Unit Tablet, 1,000 UNIT PO BID, (Reported) Entered as Reported by: NUBIA ROOLN on 05/17/15919 Cyanocobalamin (Cyanocobalamin Injection) 1,000 Mcg/Ml Inj, 1,000 MCG IJ MONTHLY, (Reported) Entered as Reported by: NUBIA ROLON on 05/17/15909 Cyclobenzaprine HCl (Cyclobenzaprine HCl) 5 Mg Tablet, 5 MG PO TID Prescribed by: MARCO ACOSTA on 09/07/18 1441 Gabapentin (Gabapentin) 100 Mg Capsule, 100 MG PO TID Prescribed by: KIMO FRIAS on 02/20/21 1203 [place] 2Kcl/[place] (Glucosamine & Chondroitin Cap) 1 Each Capsule, 2 CAP PO BID, (Reported) Entered as Reported by: NUBIA ROLON on 05/17/15919 Hydrocodone Bit/Acetaminophen (Lortab 5 Mg Tablet) 1 Tab Tab, 1 EACH PO Q6H PRN for PAIN-MODERATE Prescribed by: MARCO ACOSTA on 09/07/18 144 Levothyroxine Sodium (Levothyroxine Sodium) 50 Mcg Tablet, 50 MCG PO DAILY, (Reported) Entered as Reported by: NUBIA ROLON on 05/17/15909 Oxycodone HCl/Acetaminophen (Oxycodone-Acetaminophen 5-325) 1 Each Tablet, 1-2 TAB PO Q4H PRN for PAIN, (Reported) Entered as Reported by: NUBIA ROLON on 05/17/15909 Pantoprazole Sodium (Protonix) 40 Mg Tablet.dr, 40 MG PO BID Prescribed by: XOCHILT CROWDER on 05/21/15945 Pedi Multivit #22/Vit D3/Vit K (Multivitamins Chewables Tablet) 1 Each Tab.chew, 1 TAB.CHEW PO BID, (Reported) Entered as Reported by: NUBIA ROLON on 05/17/15919 Potassium Gluconate (Potassium) 99 Mg Tablet, 2 TAB PO BID, (Reported) Entered as Reported by: NUBIA ROLON on 05/17/15919 Sucralfate (Carafate) 1 Gm Tablet, 1 GM PO QID Prescribed by: XOCHILT CROWDER on 05/21/15945 Tramadol HCl (Tramadol HCl) 50 Mg Tablet, 50 MG PO Q6H PRN for PAIN Prescribed by: KIMO FRIAS on 02/20/21 1203 Venlafaxine HCl (Effexor Xr) 75 Mg Cap.er.24h, 75 MG PO DAILY, (Reported) Entered as Reported by: NUBIA ROLON on 05/17/15 0910 Vitamin E Mixed (Vitamin E) 400 Unit Capsule, 800 UNIT PO BID, (Reported) Entered as Reported by: NUBIA ROLON on 05/17/15 0920 Walker (Ultra-Light Rollator) 1 Each Each, EACH MC DAILY, (DME) Prescribed by: KIMO FRIAS on 02/20/21 1203 Review of Systems Constitutional: no symptoms reported, see HPI Musculoskeletal: see HPI, back pain All Other Systems Reviewed Negative Unless Noted: Yes Past Zyuiajn-Afokvd-Iwfgnr Hx Patient Social History Tobacco Use?: No Use of E-Cig and/or Vaping dev: No Substance use?: No Alcohol Use?: No Immunizations Up To Date Influenza Vaccine Up-to-Date: Yes; Up-to-Date First/Initial COVID19 Vaccinat: cant remember Second COVID19 Vaccination Adryan: cant remember Third COVID19 Vaccination Date: cant remember COVID19 Vaccine Pulley Worker: MODERNA X4 Seasonal Allergies Seasonal Allergies: No Past Medical History Abdominal Reproductive Disorders: No (cyct on cervix) 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 0.8oz. 123.490501bw; 43.00 BMI Method:Stated General Appearance: No Apparent Distress, WD/WN Neck: Full Range of Motion, Normal Inspection, Non Tender Cardiovascular: Regular Rate, Rhythm, No Edema, Normal Peripheral Pulses Respiratory: Chest Non Tender, Lungs Clear Gastrointestinal: Normal Bowel Sounds, Non Tender Back: Normal Inspection, No CVA Tenderness, Decreased Range of Motion (secondary to pain); No Muscle Spasm; Vertebral Tenderness (Lower lumbar), Other (steady gait, power V/V L4-S1) Extremity: Normal Capillary Refill, Normal Inspection, Normal Range of Motion Neurologic/Psychiatric: Alert, Oriented x3, No Motor/Sensory Deficits, Normal Mood/Affect Progress/Results/Core Measures Results/Orders My Orders Orders - GRACIE SANTILLAN Rx-Tramadol Hcl (Rx-Ultram) (03/09/22 20:46) Tramadol Tablet (Ultram Tablet) (03/09/22 20:46) Ondansetron Oral Dissolve Tab (Zofran (03/09/22 20:55) Vital Signs/I&O 03/09/22 18:58 Temp 37.1 Pulse 76 Resp 20 B/P (MAP) 145/84 (104) Pulse Ox 97 O2 Delivery Room Air Blood Pressure Mean: 104 Departure Impression Primary Impression: Back pain Qualified Codes: M54.50 - Low back pain, unspecified Additional Impression: Stress fracture Qualified Codes: M48.46XA - Fatigue fracture of vertebra, lumbar region, initial encounter for fracture Disposition: HOME, SELF-CARE Condition: Stable Departure-Patient Inst. Decision time for Depature: 20:30 Referrals: [facility] (PCP/Family) Primary Care Physician Patient Instructions: Low Back Pain (DC) Add. Discharge Instructions: Alternate heat and ice to your low back. Continue to take the Tylenol every 6 hours as needed for pain, for more severe pain you may take Ultram every 8 hours. Follow-up with [facility], for additional medications. Return to the emergency department for new, urgent healthcare problems. All discharge instructions reviewed with patient and/or family. Voiced understanding. GRACIE SANTILLAN Mar 09, 2022 20:50
[2022-03-09] MEDS ORDERED: ONDANSETRON 4 MG (ZOFRAN) ORAL DISSOLVE TAB PO STA (20:55)
== END 2022-03-09 21:09 | disposition home or self-care (01) ==
LOC: EDUNIT# 18:52 → ER 18:55
DX: M48.46XA Fatigue fracture of vertebra, lumbar region, initial encounter for fracture (principal)
CPT/HCPCS: 99283

== ENCOUNTER → 2022-07-04 | Outpatient (CLI) | payer MEDICARE, MEDICAID ==
--- NOTE | 2022-07-04 17:10 | Diagnostic Imaging Report ---
INDICATION: Postmenopausal state. COMPARISON: 02/24/2020. FINDINGS: AP Spine L2-L4: [BMD (g/cm2): 0.945] [T-Score: -2.1] [Z-Score: -1.6] [BMD Previous: 1.052] [BMD % Change: -10.2*] LT Hip Neck: [BMD (g/cm2): 0.654] [T-Score: -2.8] [Z-Score: -1.7] LT Hip Total: [BMD (g/cm2):0.719] [T-Score:-2.3] [Z-Score: -1.5] [BMD Previous: 0.717] [BMD % Change: 0.3] RT Hip Neck: [BMD (g/cm2):0.734] [T-Score:-2.2] [Z-Score:-1.1] RT Hip Total: [BMD (g/cm2):0.802] [T-score:-1.6] [Z-Score:-0.9] [BMD Previous:0.804] [BMD % Change:-0.2] *Indicates significant change from prior examination based on 95% confidence level. World Health Organization criteria for BMD interpretation classify patients as Normal (T-score at or above -1.0), Osteopenic (T-score between -1.0 and -2.5) or Osteoporotic (T-score at or below -2.5). LIMITATIONS AND MODIFICATION: None. FRACTURE RISK (FRAX SCORE): The ten year probability of (%): Major Osteoporotic Fracture: [30.1] Hip Fracture: [9.6] IMPRESSION: 1. Osteoporosis. 2. Bone mineral density within the lumbar spine has significantly decreased since the prior examination. Bone mineral density within the bilateral hips has not significantly changed. 3. See below National Osteopor[employer] guidelines on when to potentially initiate pharmacologic therapy. Based on the National Osteoporosis Foundation Guidelines, pharmacologic treatment should be initiated in any of the following, unless clinical conditions suggest otherwise: * Any patient with prior fragility fracture of the hip or vertebrae. A spine fracture indicates 5X risk for subsequent spine fracture and 2X risk for subsequent hip fracture. * Osteoporosis (T-score <-2.5). * Postmenopausal women and men age 50 and older with low bone mass/osteopenia (T-score between -1.0 and -2.5) by DXA and 10-year major osteoporotic fracture greater than 20% or a 10-year probability of hip fracture greater than 3%. These fracture risks are supplied above in the FRAX score, if applicable. * Clinician judgement and/or patient preferences may indicate treatment for people with 10-year fracture probabilities above or below these levels. Dictated by: Dictated on workstation # [id number]
== END ==
LOC: RAD 12:46
PROVIDERS: ATTEND Nurse Practitioner Family
DX: Z13.820 Encounter for screening for osteoporosis (principal); M81.0 Age-related osteoporosis without current pathological fracture; Z78.0 Asymptomatic menopausal state
CPT/HCPCS: 77080